=== PATIENT | male | born 1930 | race Caucasian/White ===

== ENCOUNTER 2017-03-09 21:18 | Inpatient (IN) | payer MEDICARE, BC ==
[2017-03-09] MEDS ORDERED: NS 0.9% 1000 ML* 1,000 ML IV SCH (22:00)
[2017-03-09 22:18] LABS: Hematocrit 29 % (42-52); Hemoglobin 9.6 g/dl (14.0-18.0); Mean Corpuscular HGB Conc 34 g/dl (31-36); Mean Corpuscular Hemoglobin 32 pg (27-31); Mean Corpuscular Volume 94 fL (80-94); Mean Platelet Volume 7 um3 (7.4-10.4); Red Blood Count 3.02 10^6/ul (4.0-5.4); Red Cell Distribution Width 16 % (10.5-15); White Blood Count 7.3 10^3/ul (3.5-10.8)
--- NOTE | 2017-03-09 22:27 | RAD ---
INDICATION: Weakness. COMPARISON: Comparison is made with a prior chest x-ray study from July 24, 2014. TECHNIQUE: A portable view of the chest was obtained. FINDINGS: There is a dual-chamber transvenous pacemaker present. The heart is within normal limits in size. The lungs are underinflated and clear. No pleural effusion is seen. IMPRESSION: NO EVIDENCE FOR ACUTE DISEASE.
[2017-03-09 22:34] LABS: Albumin 2.1 g/dL (3.2-5.2); BUN/Creatinine Ratio 18.2 (8-20); C Reactive Protein 150.51 mg/L (< 5.00); Calcium 8.2 mg/dL (8.6-10.3); EGFR African American 40.4 (>60); EGFR Non-African American 31.4 (>60); Potassium 3.6 mmol/L (3.5-5.0); Total Bilirubin 0.5 mg/dL (0.2-1.0); Total Protein 6.1 g/dL (6.4-8.9)
[2017-03-09 22:38] LABS: Troponin I 0.03 ng/mL (<0.04)
[2017-03-09 23:16] LABS: TSH (Thyroid Stimulating Horm) 3.51 mcIU/mL (0.34-5.60)
[2017-03-09 23:48] LABS: Urine Bacteria 1+ (Absent); Urine Bilirubin Negative (Negative); Urine Glucose Negative (Negative); Urine Nitrite Negative (Negative)
[2017-03-10] MEDS ORDERED: Heparin VIAL(*) 5000 UNITS/ML VIAL (FIVE THOUSAND) IV SCH (02:00)
[2017-03-10] MEDS: Heparin DRIP 25,000 UNITS(*) 25,000 UNITS/500 ML BAG IV SCH ×2 (02:06→21:59)
--- NOTE | 2017-03-10 05:25 | ED ---
Marti Titus Salem, scribed for Yanick Turner MD on 03/09/17 at 2200 . Complex/Multi-Sys Presentation - HPI Summary HPI Summary: Patient is a 86 y/o M who presents to the ED with multiple complaints. Pt was sent to the ED for admission by Dr. Mitchell after blood work today. Pt travelled from [place] by plane 4 days ago after hip surgery on the right side. Family reports edema and purulence on RLE, low BP (80/[address] Hoffmann office), high D-Dimer, no BM in a few days, strong smelling urine, incontinence , and general weakness. They denie fever, SOB, or CP. Pt has been using a wheel chair at home and denies O2 use at home. O2 Sat at 100% upon examination. - History Of Current Complaint Chief Complaint: EDGeneral Hx Obtained From: Family/Steam [employer], Other: - PCP: Dr. Mitchell. Onset/Duration: Gradual Onset, Lasting Days, Still Present Timing: Constant Severity Currently: Moderate Severity Initially: Moderate Location: Negative Aggravating Factor(s): Nothing. Alleviating Factor(s): Nothing. Associated Signs And Symptoms: Positive: Weakness. Negative: SOB, Chest Pain, Fever - Allergies/Home Medications Allergies/Adverse Reactions: Allergies Allergy/AdvReac Type Severity Reaction Status Date / Time No Known Allergies Allergy Verified 03/08/13 14:25 Home Medications: Home Medications Amiodarone HCl 200 mg PO BID 03/09/17 [History Confirmed 03/09/17] Aspirin 81 MG TAB 81 mg PO DAILY 03/09/17 [History Confirmed 03/09/17] Atenolol 25 mg PO DAILY 03/09/17 [History Confirmed 03/09/17] Calcium 600 mg PO BID 03/09/17 [History Confirmed 03/09/17] Carafate 1 gm PO DAILY 03/09/17 [History Confirmed 03/09/17] Carbidopa/Levodop 25/100 MG(*) 3 tab PO TID 03/09/17 [History Confirmed 03/09/17 ] Colace 100 mg PO BID 03/09/17 [History Confirmed 03/09/17] Crestor 10 mg PO DAILY 03/09/17 [History Confirmed 03/09/17] Ferrous Sulfate 325 mg PO TID 03/09/17 [History Confirmed 03/09/17] Lasix 20 mg PO DAILY 03/09/17 [History Confirmed 03/09/17] Mekinist 2 mg PO DAILY 03/09/17 [History Confirmed 03/09/17] Multi Vitamin 1 tab PO DAILY 03/09/17 [History Confirmed 03/09/17] Pantoprazole Sodium 40 mg PO BID 03/09/17 [History Confirmed 03/09/17] Potassium Chlor TAB 20 MEQ* 20 meq PO DAILY 03/09/17 [History Confirmed 03/09/17 ] Tafinlar 150 mg PO DAILY 03/09/17 [History Confirmed 03/09/17] PMH/Surg Hx/FS Hx/Imm Hx Endocrine/Hematology History: Denies: Hx Diabetes Cardiovascular History: Reports: Hx Hypercholesterolemia, Hx Hypertension, Hx Pacemaker/ICD, Other Cardiovascular Problems/Disorders - hx pacemaker left chest wall, r/t atrial fibrillation Denies: Hx Congestive Heart Failure GI History: Denies: Other GI Disorders - pt. denies History: Reports: Hx Kidney Stones Denies: Hx Renal Disease Musculoskeletal History: Reports: Hx Back Problems Sensory History: Reports: Hx Contacts or Glasses Opthamlomology History: Reports: Hx Contacts or Glasses Neurological History: Reports: Other Neuro Impairments/Disorders - parkinsons - Cancer History Cancer Type, Location and Year: melanoma Hx Chemotherapy: No Hx Radiation Therapy: No - Surgical History Surgery Procedure, Year, and Place: melanoma removed from back, pacemaker insertion 10 years ago updated last winter (in [place]), repair of torn tendon L elbow 1980s [facility] [place], [place]. Infectious Disease History: Denies: Traveled Outside the [place] in Last 30 Days - Family History Known Family History: Positive: Other - No fhx of PE. Negative: Cardiac Disease - Social History Alcohol Use: None Substance Use Type: Reports: None Hx Tobacco Use: No Smoking Status (MU): Never Smoked Tobacco Review of Systems Positive: Other - High D-dimer. . Negative: Fever Positive: Other - Low BP . Negative: Chest Pain Negative: Shortness Of Breath Positive: incontinence, other - No BM. Strong smelling urine. Positive: Edema - RLE. , Other - Purulence on RLE. Positive: Weakness All Other Systems Reviewed And Are Negative: Yes Physical Exam Triage Information Reviewed: Yes Vital Signs On Initial Exam: Initial Vitals Temp Pulse Resp BP Pulse Ox 97.3 F 81 20 112/58 100 03/09/17 21:22 03/09/17 21:22 03/09/17 21:22 03/09/17 21:22 03/09/17 21:22 Vital Signs Reviewed: Yes Appearance: Positive: Well-Appearing, No Pain Distress Skin: Positive: Warm, Skin Color Reflects Adequate Perfusion, Dry Head/Face: Positive: Normal Head/Face Inspection Eyes: Positive: EOMI, PATRICK ENT: Positive: Normal ENT inspection Neck: Positive: Supple, Nontender Respiratory/Lung Sounds: Positive: Clear to Auscultation, Breath Sounds Present Cardiovascular: Positive: RRR Abdomen Description: Positive: Nontender, Soft Bowel Sounds: Positive: Present Musculoskeletal: Positive: Strength/ROM Intact, Other - Edematous RLE. Neurological: Positive: Normal, Sensory/Motor Intact, Alert, Oriented to Person Place, Time Psychiatric: Positive: Affect/Mood Appropriate Diagnostics - Vital Signs Vital Signs Temp Pulse Resp BP Pulse Ox 03/09/17 21:22 97.3 F 81 20 112/58 100 - Laboratory Lab Results: Lab Results 03/09/17 03/09/17 03/09/17 Range/Units 22:11 22:11 22:11 WBC 7.3 (3.5-10.8) 10^3/ul RBC 3.02 L (4.0-5.4) 10^6/ul Hgb 9.6 L (14.0-18.0) g/dl Hct 29 L (42-52) % MCV 94 (80-94) fL MCH 32 H (27-31) pg MCHC 34 (31-36) g/dl RDW 16 H (10.5-15) % Plt Count 227 (150-450) 10^3/ul MPV 7 L (7.4-10.4) um3 Neut % (Auto) 68.5 (38-83) % Lymph % (Auto) 19.8 L (25-47) % Jenkins % (Auto) 8.8 (1-9) % Eos % (Auto) 2.0 (0-6) % Baso % (Auto) 0.9 (0-2) % Absolute Neuts (auto) 5.0 (1.5-7.7) 10^3/ul Absolute Lymphs (auto) 1.5 (1.0-4.8) 10^3/ul Absolute Monos (auto) 0.6 (0-0.8) 10^3/ul Absolute Eos (auto) 0.1 (0-0.6) 10^3/ul Absolute Basos (auto) 0.1 (0-0.2) 10^3/ul Absolute Nucleated RBC 0 10^3/ul Nucleated RBC % 0.1 INR (Anticoag Therapy) 1.06 (0.89-1.11) APTT 31.7 (26.0-36.3) seconds D-Dimer, Quantitative > 1050 H (Less Than 230) ng/mL Sodium 127 L (133-145) mmol/L Potassium 3.6 (3.5-5.0) mmol/L Chloride 91 L (101-111) mmol/L Carbon Dioxide 30 (22-32) mmol/L Anion Gap 6 (2-11) mmol/L BUN 37 H (6-24) mg/dL Creatinine 2.03 H (0.67-1.17) mg/dL Est GFR ( Amer) 40.4 (>60) Est GFR (Non-Af Amer) 31.4 (>60) BUN/Creatinine Ratio 18.2 (8-20) Glucose 151 H (70-100) mg/dL Lactic Acid (0.5-2.0) mmol/L Calcium 8.2 L (8.6-10.3) mg/dL Total Bilirubin 0.50 (0.2-1.0) mg/dL AST 37 (13-39) U/L ALT 6 L (7-52) U/L Alkaline Phosphatase 234 H (34-104) U/L Total Creatine Kinase 84 (10-223) U/L CK-MB (CK-2) 2.8 (0.6-6.3) ng/mL Troponin I 0.03 (<0.04) ng/mL C-Reactive Protein 150.51 H (< 5.00) mg/L B-Natriuretic Peptide ( - 100) pg/mL Total Protein 6.1 L (6.4-8.9) g/dL Albumin 2.1 L (3.2-5.2) g/dL Globulin 4.0 (2-4) g/dL Albumin/Globulin Ratio 0.5 L (1-3) Lipase 141 H (11.0-82.0) U/L TSH 3.51 (0.34-5.60) mcIU/mL Urine Color Urine Appearance Urine pH (5-9) Ur Specific [place] (1.010-1.030) Urine Protein (Negative) Urine Ketones (Negative) Urine Blood (Negative) Urine Nitrate (Negative) Urine Bilirubin (Negative) Urine Urobilinogen (Negative) Ur Leukocyte Esterase (Negative) Urine WBC (Auto) (Absent) Urine RBC (Auto) (Absent) Ur Squamous Epith Cells (Absent) Urine Bacteria (Absent) Urine Glucose (Negative) 03/09/17 03/09/17 03/09/17 Range/Units 22:11 22:11 23:22 WBC (3.5-10.8) 10^3/ul RBC (4.0-5.4) 10^6/ul Hgb (14.0-18.0) g/dl Hct (42-52) % MCV (80-94) fL MCH (27-31) pg MCHC (31-36) g/dl RDW (10.5-15) % Plt Count (150-450) 10^3/ul MPV (7.4-10.4) um3 Neut % (Auto) (38-83) % Lymph % (Auto) (25-47) % Jenkins % (Auto) (1-9) % Eos % (Auto) (0-6) % Baso % (Auto) (0-2) % Absolute Neuts (auto) (1.5-7.7) 10^3/ul Absolute Lymphs (auto) (1.0-4.8) 10^3/ul Absolute Monos (auto) (0-0.8) 10^3/ul Absolute Eos (auto) (0-0.6) 10^3/ul Absolute Basos (auto) (0-0.2) 10^3/ul Absolute Nucleated RBC 10^3/ul Nucleated RBC % INR (Anticoag Therapy) (0.89-1.11) APTT (26.0-36.3) seconds D-Dimer, Quantitative (Less Than 230) ng/mL Sodium (133-145) mmol/L Potassium (3.5-5.0) mmol/L Chloride (101-111) mmol/L Carbon Dioxide (22-32) mmol/L Anion Gap (2-11) mmol/L BUN (6-24) mg/dL Creatinine (0.67-1.17) mg/dL Est GFR ( Amer) (>60) Est GFR (Non-Af Amer) (>60) BUN/Creatinine Ratio (8-20) Glucose (70-100) mg/dL Lactic Acid 2.1 H* (0.5-2.0) mmol/L Calcium (8.6-10.3) mg/dL Total Bilirubin (0.2-1.0) mg/dL AST (13-39) U/L ALT (7-52) U/L Alkaline Phosphatase (34-104) U/L Total Creatine Kinase (10-223) U/L CK-MB (CK-2) (0.6-6.3) ng/mL Troponin I (<0.04) ng/mL C-Reactive Protein (< 5.00) mg/L B-Natriuretic Peptide 167 H ( - 100) pg/mL Total Protein (6.4-8.9) g/dL Albumin (3.2-5.2) g/dL Globulin (2-4) g/dL Albumin/Globulin Ratio (1-3) Lipase (11.0-82.0) U/L TSH (0.34-5.60) mcIU/mL Urine Color Yellow Urine Appearance Cloudy Urine pH 5.0 (5-9) Ur Specific [place] 1.011 (1.010-1.030) Urine Protein Negative (Negative) Urine Ketones Trace H (Negative) Urine Blood 1+ H (Negative) Urine Nitrate Negative (Negative) Urine Bilirubin Negative (Negative) Urine Urobilinogen Negative (Negative) Ur Leukocyte Esterase Negative (Negative) Urine WBC (Auto) Trace(0-5/hpf) (Absent) Urine RBC (Auto) Trace(0-2/hpf) (Absent) Ur Squamous Epith Cells Present H (Absent) Urine Bacteria 1+ H (Absent) Urine Glucose Negative (Negative) Result Diagrams: 03/09/17 22:11 03/09/17 22:11 Diagnostic Studies Comment: Lactic acid: 2.1. D-Dimer: >1050. Trop 1: 0.03 Lab Statement: Any lab studies that have been ordered have been reviewed, and results considered in the medical decision making process. - Radiology CXR Radiology Interpretation Completed By: Radiologist - IMPRESSION: NO EVIDENCE FOR ACUTE DISEASE. - Ultrasound No standard instances Ultrasound Interpretation Completed By: Radiologist - VL LOWER EXTREMITIES VEINS RIGHT IMPRESSION: Bilateral DVT with possible proximal extension to the pelvis. - EKG 0153 EKG Interpretation: A-V dual paced rhythm @ 70 bpm. Complex Multi-Symp Course/Dx Course Of Treatment: NO CRITICAL CARE TIME. ADMIT HOSPITALIST STABLE. - Diagnoses Provider Diagnoses: DVT (deep venous thrombosis), Hypotension, Weakness - Physician Notifications Discussed Care Of Patient With: Maurizio Madrigal Time Discussed With Above Provider: 00:36 Instructed by Provider To: Admit As Inpatient Admit/Transition Orders Completed By ED Provider: Yes Discharge - Discharge Plan Condition: Stable Disposition: ADMITTED TO [facility] documentation as recorded by the Marti concepcion Salem accurately reflects the service I personally performed and the decisions made by , Yanick Turner MD.
--- NOTE | 2017-03-10 06:09 | HP ---
CC: Caitlyn Mitchell MD * HISTORY AND PHYSICAL: DATE OF ADMISSION: 03/10/17 PRIMARY CARE PHYSICIAN: Caitlyn Mitchell MD CHIEF COMPLAINT: Weakness. HISTORY OF PRESENT ILLNESS: The patient is an 86-year-old gentleman, who spends half his time in [place] and half his time here in [place], [place] who recently got back from [place] about a week ago and states for the last 2 weeks , he has been feeling increasing weakness. He says he has not been eating well and has had no desire to eat. He has not been drinking much either. He notes his blood pressure has been low. They called Dr. Mitchell this week and saw her today 2:30. Apparently, the patient states that he had abnormal blood work and was sent to the hospital by Dr. Mitchell. He has no complaints such as increased pain or chest pain or shortness of breath. He has no leg cramping, no fevers, no chills, no abdominal pain, no nausea and vomiting. He states he just has no desire to eat and it has nothing to do with the way the food tastes. He denies any new medications or adjustments in his medications. He denies being depressed. In the ED, the patient was evaluated and the only finding of significance seems to be that he has bilateral lower extremity extensive DVTs. CTA was not performed because of his elevated creatinine. PAST MEDICAL HISTORY: Significant for paroxysmal atrial fibrillation, was on Coumadin at one point as well as Pradaxa; status post pacemaker placement for sick sinus syndrome in 2002, generator change in 2009; hypertension; gout; IgG and IgA lambda monoclonal gammopathy; BPH; GERD; nephrolithiasis with calcium oxalate stones; lumbosacral disk disease; diverticulosis; anemia; Robyn's thyroiditis; colonic polyps; hyperlipidemia; renal cysts; bladder stones; hemorrhoids; Parkinson's disease; metastatic melanoma. PAST SURGICAL HISTORY: Significant for cataracts, T and A in childhood, TURP for bladder calculus removal in 2005, left arm surgery, sentinel node biopsy. CURRENT MEDICATIONS: Are as follows: 1. Tafinlar 150 mg daily. 2. Potassium chloride 20 mEq daily. 3. Protonix 40 mg twice daily. 4. Multivitamin 1 tablet daily. 5. Mekinist 2 mg daily. 6. Lasix 20 mg daily. 7. Ferrous sulfate 325 mg 3 times a day. 8. Crestor 10 mg daily. 9. Colace 100 mg twice daily. 10. Carbidopa/levodopa 3 tabs 3 times a day. 11. Carafate 1 g daily. 12. Calcium 60 mg twice daily. 13. Tylenol 25 mg daily. 14. Aspirin 81 mg daily. 15. Amiodarone 200 mg twice daily. ALLERGIES: He has allergy/adverse reaction to BEE STINGS. FAMILY HISTORY: Significant for diabetes and thyroid disease and heart disease. SOCIAL HISTORY: No tobacco, alcohol, or recreational drug use. His son, Jaime Gastelum, is his healthcare proxy. He is a . REVIEW OF SYSTEMS: A 14-point review of systems was completed with the patient. All pertinent positives and negatives are in the history of present illness, otherwise it is negative. PHYSICAL EXAMINATION GENERAL: A pleasant gentleman, lying in bed, in no acute distress. VITAL SIGNS: Blood pressure 113/76, respiratory rate 15 breaths per minute, heart rate 75 beats per minute, temperature 97.3 degrees. HEENT: Normocephalic, atraumatic. Pupils are equal, round, and reactive to light. Dry mucous membranes. NECK: Supple. No JVD, bruits, palpable thyroid, or lymphadenopathy. CHEST: Clear to auscultation and percussion bilaterally. CARDIOVASCULAR: S1, S2 appreciated. Regular rate and rhythm. ABDOMINAL: Positive bowel sounds in all 4 quadrants. Soft, nontender, nondistended. EXTREMITIES: No cyanosis or clubbing. He has got bilateral edema, +2 peripheral pulses bilaterally. NEURO: Alert and oriented x3, but masked facies. He has got bilateral intention tremor. SKIN: No distinct rashes or abnormalities. DIAGNOSTIC STUDIES/LAB DATA: Sodium 127, potassium 3.6, chloride 91, CO2 30, BUN 37, creatinine 2.03, glucose 151. Lactic acid is 2.1. CRP 150.51. Troponin 0.03. TSH is 3.51. White blood cell count 7.3, hemoglobin 9.6, hematocrit 29, platelets are 227. D-dimer is greater than 1050. Urinalysis had just some bacteria and squamous epithelial cells. Chest x-ray was interpreted by Radiology as no evidence for acute disease. Venous duplex shows there is nearly occlusive clot throughout the entire visualized right lower extremity with possible proximal extension into the pelvis. There is a partially occlusive clot in the left common femoral, proximal femoral, superficial femoral, and profundus veins, proximal extension to pelvis is not excluded. An EKG shows AV dual paced rhythm. ASSESSMENT AND PLAN: 1. Deep venous thrombosis. I am concerned the patient may have a pulmonary embolism as well, although he has no symptoms. Certainly a risk for. His creatinine is somewhat high. I will order a V/Q scan. I will heparinize him as if he has a pulmonary embolism. 2. Weakness. It is unclear etiology. He is not eating well. There could be a depression component. I do not have any acute reasons for this to happen and I doubt it is from his deep venous thrombosis. I will hydrate him for now with normal saline at 100 cc an hour. 3. Parkinson's disease. He certainly has physical findings consistent with this. He is currently on the carbidopa/levodopa. Whether adjustment is necessary needs to be addressed. 4. Metastatic melanoma. Continue Mekinist and Tafinlar. 5. Atrial fibrillation. He is on amiodarone 200 mg twice daily. He has got a paced rhythm. It is unclear if this needs to be continued or not and should be addressed. 6. Gastroesophageal reflux disease. Continue omeprazole. No signs consistent with that. 7. FEN. Regular diet. 8. DVT prophylaxis. He is on a heparin drip. 9. The patient is a do not resuscitate. TIME SPENT: Over 75 minutes were spent on this H and P, more than 40 minutes were spent in direct [id number] contact with the patient in evaluation, physical exam, counseling and coordination of care. [id number]/[facility] #: [id number] MTDD
[2017-03-10] MEDS: NS 0.9% 1000 ML* 1,000 ML IV SCH ×2 (07:08→18:15)
[2017-03-10 07:11] LABS: Hematocrit 26 % (42-52); Hemoglobin 8.6 g/dl (14.0-18.0); Mean Corpuscular HGB Conc 33 g/dl (31-36); Mean Corpuscular Hemoglobin 31 pg (27-31); Mean Corpuscular Volume 95 fL (80-94); Mean Platelet Volume 7 um3 (7.4-10.4); Red Blood Count 2.75 10^6/ul (4.0-5.4); Red Cell Distribution Width 16 % (10.5-15); White Blood Count 7.9 10^3/ul (3.5-10.8)
--- NOTE | 2017-03-10 07:37 | RAD ---
INDICATION: Right lower extremity swelling, positive d-dimer. COMPARISON: There are no prior studies available for comparison. TECHNIQUE: Multiple real-time, color flow and Doppler tracings of both lower extremities were obtained. FINDINGS: There is extensive deep venous thrombosis present throughout the right lower extremity involving the common femoral, profunda femoral, femoral popliteal and posterior tibial veins. Most of the thrombus is occlusive. The peroneal veins were nonvisualized. There is also occlusive thrombus within the left common femoral and profunda femoral veins and there may be proximal extension on both sides into the pelvis. IMPRESSION: BILATERAL LOWER EXTREMITY DEEP VENOUS THROMBOSIS INVOLVING NEARLY THE ENTIRE RIGHT LOWER EXTREMITY DEEP VENOUS SYSTEM AND THE LEFT COMMON FEMORAL AND PROFUNDA FEMORAL VEINS WITH POSSIBLE PROXIMAL EXTENSION ON BOTH SIDES INTO THE PELVIS.
[2017-03-10 07:42] LABS: BUN/Creatinine Ratio 19.6 (8-20); Calcium 7.9 mg/dL (8.6-10.3); EGFR African American 46.8 (>60); EGFR Non-African American 36.4 (>60); Potassium 3.4 mmol/L (3.5-5.0)
[2017-03-10] MEDS ORDERED: Potassium Chlor TAB* 20 MEQ TAB.ER PO SCH (08:30)
--- NOTE | 2017-03-10 10:32 | RAD ---
Indication: DVT. Assess for pulmonary embolism. Remote history of melanoma. Comparison: March 09, 2017 chest radiograph. Technique: Following administration of 7.600 mCi xenon-133 by inhalation anterior and posterior ventilation images were obtained. Following the administration of 6.180 mCi of Tc-99m macroaggregated albumin, perfusion images were obtained in multiple projections. Report: The ventilation pattern is uniform with evidence for mild bilateral air trapping. Multiple LEFT greater than RIGHT subsegmental perfusion defects evident. No corresponding radiographic abnormality on the March 09, 2017 chest radiograph. IMPRESSION: 1. Significant abnormality with multiple subsegmental perfusion defects without corresponding ventilation defects or chest radiograph abnormality consistent with intermediate to high probability for pulmonary embolism. 2. Air trapping favoring obstructive lung disease.
[2017-03-10] MEDS: Carbidopa/Levodop 25/100 MG TAB(*) PO SCH ×3 (11:07→21:48)
[2017-03-10] MEDS: Amiodarone TAB* 200 MG PO SCH ×2 (11:07→21:48)
[2017-03-10] MEDS: Omeprazole CAP* 20 MG PO SCH ×2 (11:08→21:48)
[2017-03-10] MEDS: Atenolol TAB* 25 MG PO SCH (11:08)
[2017-03-10] MEDS: Calcium Carbonate TAB* 1250 MG (CALCIUM 500 MG) PO SCH ×2 (11:08→21:48)
[2017-03-10] MEDS: Atorvastatin* 20 MG TAB PO SCH (11:09)
[2017-03-10] MEDS: Aspirin EC Low Dose* 81 MG TAB.EC PO SCH (11:09)
[2017-03-10] MEDS: Vitamin THERAPEUTIC TAB PO SCH (11:09)
[2017-03-10] MEDS: Docusate CAP* 100 MG PO SCH ×2 (11:09→21:49)
[2017-03-10] MEDS: Ferrous Sulfate TAB* 325 MG PO SCH ×3 (11:09→21:47)
[2017-03-10] MEDS: Sucralfate TAB* 1 GM PO SCH (11:09)
[2017-03-10] MEDS: TRAMETINIB 2 MG PO SCH (11:44)
--- NOTE | 2017-03-10 13:37 | ECHO ---
Patient: CARMELA FAJARDO [facility] Rec#: [id number] : 1930 Date: 03/10/2017 Age: 86y Height: 177.8 cm / 70.0 in Weight: 83.46 kg / 183.9 lbs Sex: M BSA: 2.01 Room#: [facility] Admit Date#: 03/10/2017 Type: Inpatient Referring: Caitlyn Mitchell MD Reading: Julius Gao MD Detail Sergeant: Shira Altamirano [facility] Transthoracic Echocardiogram Indication: Pulmonary Embolism BP: 130/66 HR: 70 Rhythm: Paced Findings History: PAF, s/p Watchman insert,SSS s/p pacer insert,HTN, metastatic melanoma. Technical Comments: The study quality is fair. Suboptimal imaging due to lung tissue interference. Left Ventricle: The left ventricular chamber size is normal. Global left ventricular wall motion and contractility are within normal limits. The estimated ejection fraction is 55-60%. There is abnormal ventricular septal wall motion consistent with right ventricular pacemaker. The assessment of diastolic function is non-diagnostic. Left Atrium: The left atrium is mild to moderately dilated. Right Ventricle: The right ventricle is not well visualized. The right ventricular cavity size is normal. The right ventricular global systolic function is normal. The septum has abnormal paradoxical motion consistent with RV pacemaker. A pacemaker wire is visualized in the right ventricle. Right Atrium: The right atrium is mild to moderately dilated. A pacemaker wire is visualized in the right atrium. Aortic Valve: The aortic valve is trileaflet. Mild aortic cusp sclerosis is present. There is mild aortic regurgitation. There is no evidence of aortic stenosis. Mitral Valve: The mitral valve leaflets are moderately thickened. There is mild mitral regurgitation. This may be underestimated due to suboptimal imaging. The mitral regurgitant jet is centrally directed. There is no evidence of mitral stenosis. Tricuspid Valve: The tricuspid valve leaflets are mildly thickened. There is trace to mild tricuspid regurgitation. There is evidence of borderline pulmonary hypertension. There is no tricuspid stenosis. Pulmonic Valve: The pulmonic valve appears normal. There is a trace pulmonic regurgitation. There is no pulmonic stenosis. Pericardium: The pericardium appears normal. Aorta: There is mild dilatation of the ascending aorta. There is no dilatation of the aortic arch. There is mild dilatation of the aortic root. Pulmonary Artery: The main pulmonary artery appears normal. Venous: The inferior vena cava appears normal in size. There is a greater than 50% respiratory change in the inferior vena cava dimension. Conclusions The study quality is fair. Suboptimal imaging due to lung tissue interference. Global left ventricular wall motion and contractility are within normal limits. There is abnormal ventricular septal wall motion consistent with right ventricular pacemaker. The estimated ejection fraction is 55-60%. The left atrium is mild to moderately dilated. The right atrium is mild to moderately dilated. There is mild mitral regurgitation. This may be underestimated due to suboptimal imaging. There is trace to mild tricuspid regurgitation. There is a trace pulmonic regurgitation. There is mild aortic regurgitation. Compared to FER report of 07/23/2014 the mitral regurgitation appears less, as does the tricuspid regurgitation. Measurements Name Value Normal Range RVIDd (AP) 2D 3.6 cm (0.9 - 2.6) RVDdMajor (2D) 4 cm (2.2 - 4.4) RAd ISD 4CH 6 cm (3.4 - 4.9) RA (A4C)W 4.7 cm (2.9 - 4.6) IVSd (2D) 0.9 cm (0.6 - 1) LVPWd (2D) 1 cm (0.6 - 1) LVIDd (2D) 4.6 cm (3.6 - 5.4) LVIDs (2D) 3.1 cm - LV FS (2D) 33 % (25 - 45) Aortic Annulus 2.2 cm (1.4 - 2.6) Ao root diameter (2D) 3.7 cm (2.1 - 3.5) Ascending Ao 3.8 cm (2.1 - 3.4) Aortic arch 3.1 cm (1.8 - 3.4) Descending Ao 0.4 cm - LA dimension (AP) 2D 4.3 cm (2.3 - 3.8) LAd ISD 4CH 6 cm (2.9 - 5.3) LA ISD 4CH W 4.5 cm (2.5 - 4.5) Name Value Normal Range LA ESV SP 4CH (A/L) 89 ml - LA ESV SP 2CH (A/L) 76 ml - LA ESV BP (A/L) 88 ml - LA ESV BP (A/L) index 43.49 ml/m2 - LA ESV SP 4CH (MOD) 83 ml - LA ESV SP 2CH (MOD) 73 ml - Name Value Normal Range MV E-wave Vmax 0.7 m/sec - MV deceleration time 335 msec - MV A-wave Vmax 0.8 m/sec - MV E:A ratio 0.85 ratio - LV septal e' Vmax 0.07 m/sec - LV lateral e' Vmax 0.11 m/sec - LV E:e' septal ratio 10 ratio - LV E:e' lateral ratio 6.36 ratio - Name Value Normal Range AV Vmax 1.6 m/sec - AV VTI 28.5 cm - AV peak gradient 10.01 mmHg - AV mean gradient 4.65 mmHg - LVOT Vmax 0.9 m/sec - LVOT VTI 16.14 cm - LVOT peak gradient 3.1 mmHg - LVOT mean gradient 1.36 mmHg - AR PHT 786 msec - AR peak gradient 27.17 mmHg - Name Value Normal Range MR Vmax 3.65 m/sec - MR VTI 79 cm - Name Value Normal Range TR Vmax 2.8 m/sec - TR peak gradient 31 mmHg - RAP 3 mmHg - RVSP 34 mmHg - IVC diameter 1.2 cm - Name Value Normal Range PV Vmax 0.9 m/sec - PV peak gradient 3.1 mmHg -
[2017-03-10] MEDS ORDERED: Magnesium Sulfate 2 GM IV IVPB ONE (15:00)
[2017-03-10] MEDS ORDERED: cefTRIAXone* 1 GM in NS 0.9% 50 ML BAG IVPB SCH (15:00)
[2017-03-10] MEDS: Potassium Chlor TAB* 20 MEQ TAB.ER PO SCH ×2 (15:03→21:49)
[2017-03-10 15:38] LABS: C Reactive Protein 130.06 mg/L (< 5.00)
[2017-03-10 16:07] LABS: Ferritin 438.6 ng/mL (24-336)
--- NOTE | 2017-03-10 17:09 | PN ---
Progress Note - Progress Note SOAP: Subjective: []Resting in bed. Swelling in legs and several fall. He had hip surgery on right 01/05/17. Took plane to [place] last week. Presented to Dr. Mitchell with increased weakness and TYSHAWN.. Swelling in legs continues. He has abrasions from recent falls. Amiodarone HCl (Cordarone Tab*) 200 mg PO BID [facility] Last Admin: 03/10/17 11:07 Dose: 200 mg Aspirin (Aspirin Ec Low Dose*) 81 mg PO DAILY [facility] Last Admin: 03/10/17 11:09 Dose: 81 mg Atenolol (Tenormin Tab*) 25 mg PO DAILY [facility] Last Admin: 03/10/17 11:08 Dose: 25 mg Atorvastatin Calcium (Lipitor*) 20 mg PO DAILY [facility] Last Admin: 03/10/17 11:09 Dose: 20 mg Calcium Carbonate (Calcium Carbonate Tab*) 1,250 mg PO BID [facility] Last Admin: 03/10/17 11:08 Dose: 1,250 mg Carbidopa/Levodopa (Sinemet 25/100 Tab(*)) 3 tab PO TID [facility] Last Admin: 03/10/17 14:04 Dose: 3 tab Docusate Sodium (Colace Cap*) 100 mg PO BID [facility] Last Admin: 03/10/17 11:09 Dose: 100 mg Ferrous Sulfate (Ferrous Sulfate Tab*) 325 mg PO TID [facility] Last Admin: 03/10/17 14:03 Dose: 325 mg Heparin Sodium (Porcine) (Heparin Vial(*)) 0 units IV .PER PROTOCOL [facility] PRN Reason: Protocol Heparin Sodium/Dextrose (Heparin Drip 25,000 Units(*)) 25,000 units in 500 mls @ 0 mls/hr IV .NO INITIAL BOLUS [facility]; As Directed PRN Reason: Protocol Last Admin: 03/10/17 02:06 Dose: 31 mls/hr Sodium Chloride (Ns 0.9% 1000 Ml*) 1,000 mls @ 100 mls/hr IV PER RATE [facility] Last Admin: 03/10/17 07:08 Dose: 100 mls/hr Ceftriaxone Sodium 1,000 mg/ (Sodium Chloride) 50 mls @ 200 mls/hr IVPB Q24H [facility] Last Admin: 03/10/17 15:04 Dose: 200 mls/hr Multivitamins (Theragran Tab*) 1 tab PO DAILY [facility] Last Admin: 03/10/17 11:09 Dose: 1 tab Trametinib [Mekinist (] 2mg Tablet) 2 mg PO DAILY [facility] Last Admin: 03/10/17 11:44 Dose: Not Given (Tafinlar 150 Mg) 150 mg PO DAILY [facility] Last Admin: 03/10/17 11:44 Dose: Not Given Omeprazole (Prilosec Cap*) 20 mg PO BID [facility] Last Admin: 03/10/17 11:08 Dose: 20 mg Potassium Chloride (Klor Con Er Tab*) 20 meq PO TID [facility] Last Admin: 03/10/17 15:03 Dose: 20 meq Sucralfate (Carafate*) 1 gm PO DAILY [facility] Last Admin: 03/10/17 11:09 Dose: 1 gm Objective: [] Vital Signs Temp Pulse Resp BP Pulse Ox 99.3 F 70 20 112/57 96 03/10/17 16:02 03/10/17 16:02 03/10/17 16:02 03/10/17 16:02 03/10/17 16:02 HEENT - Pale, mucosa dry. No skin rash CTA, decreased sounds Rate 60s sounds irregular +BS NT, ND TYSHAWN, R>L weak, strength 1/5 LE skin exam differed, but abrasions on both legs and right arm. Assessment: []86 year old with multiple medical problems including metastatic melanoma B- bianca + and stable for 3 years on dabrafenib (BRAF inhibitor) and tramefinib (MEK inhibitor). Had does reduced in December for fatigue and feeling dizzy. Recent PET scan in [place] with stable disease. He has done remarkably well on therapy but look significantly more frail today then when I saw him in 06/2014. Plan: []1. Combination of dabrafenib and tramefinib has significant risk of DVT and PE (7% in studies). Hold for 6 week and until stable on Coumadin. 2. Will need keno terminal operator anticoagulation while on cancer therapy. Will need to weigh risks vs risk of continued falls. 3. Coumadin is optimal agent keno terminal operator, Lovenox modified for renal function is the other option. I do not recommend direct oral thrombin inhibitors.
[2017-03-11 01:16] LABS: Hematocrit 23 % (42-52); Hemoglobin 7.4 g/dl (14.0-18.0); Mean Corpuscular HGB Conc 33 g/dl (31-36); Mean Corpuscular Hemoglobin 31 pg (27-31); Mean Corpuscular Volume 95 fL (80-94); Mean Platelet Volume 7 um3 (7.4-10.4); Red Blood Count 2.36 10^6/ul (4.0-5.4); Red Cell Distribution Width 16 % (10.5-15); White Blood Count 5.6 10^3/ul (3.5-10.8)
[2017-03-11] MEDS: Cefepime(*) 1 GM in NS 0.9% 50 ML* 50 ML IVPB SCH ×2 (01:18→14:17)
[2017-03-11] MEDS: NS 0.9% 1000 ML* 1,000 ML IV SCH ×2 (05:33→21:30)
[2017-03-11 08:47] LABS: Hematocrit 22 % (42-52); Hemoglobin 7.3 g/dl (14.0-18.0); Mean Corpuscular HGB Conc 33 g/dl (31-36); Mean Corpuscular Hemoglobin 32 pg (27-31); Mean Corpuscular Volume 96 fL (80-94); Mean Platelet Volume 7 um3 (7.4-10.4); Red Blood Count 2.33 10^6/ul (4.0-5.4); Red Cell Distribution Width 16 % (10.5-15); White Blood Count 4.5 10^3/ul (3.5-10.8)
[2017-03-11] MEDS: TRAMETINIB 2 MG PO SCH (08:53)
[2017-03-11] MEDS: Atorvastatin* 20 MG TAB PO SCH (08:58)
[2017-03-11] MEDS: Potassium Chlor TAB* 20 MEQ TAB.ER PO SCH ×3 (08:58→21:17)
[2017-03-11] MEDS: Vitamin THERAPEUTIC TAB PO SCH (08:58)
[2017-03-11] MEDS: Docusate CAP* 100 MG PO SCH ×2 (08:58→21:17)
[2017-03-11] MEDS: Carbidopa/Levodop 25/100 MG TAB(*) PO SCH ×3 (08:58→21:17)
[2017-03-11] MEDS: Aspirin EC Low Dose* 81 MG TAB.EC PO SCH (08:58)
[2017-03-11] MEDS: Ferrous Sulfate TAB* 325 MG PO SCH ×3 (08:58→21:17)
[2017-03-11] MEDS: Amiodarone TAB* 200 MG PO SCH (08:58)
[2017-03-11] MEDS: Sucralfate TAB* 1 GM PO SCH (08:58)
[2017-03-11] MEDS: Calcium Carbonate TAB* 1250 MG (CALCIUM 500 MG) PO SCH ×2 (08:58→21:17)
[2017-03-11] MEDS: Atenolol TAB* 25 MG PO SCH (08:58)
[2017-03-11] MEDS: Omeprazole CAP* 20 MG PO SCH ×2 (08:58→21:17)
[2017-03-11 09:09] LABS: Albumin 1.6 g/dL (3.2-5.2); BUN/Creatinine Ratio 19.1 (8-20); C Reactive Protein 127.6 mg/L (< 5.00); Calcium 7.2 mg/dL (8.6-10.3); EGFR African American 64.2 (>60); EGFR Non-African American 49.9 (>60); Magnesium 1.8 mg/dL (1.9-2.7); Potassium 3.4 mmol/L (3.5-5.0); Total Bilirubin 0.4 mg/dL (0.2-1.0); Total Protein 4.6 g/dL (6.4-8.9)
[2017-03-11 10:33] LABS: Corrected Retic Count 0.7 % (0.5-1.5); Immature Retic Fraction 0.49
--- NOTE | 2017-03-11 10:53 | CONSULT ---
Subjective Date of Service: 03/11/17 Interval History: Admission Date: 03/10/17 Consult date 03/11/2017 Hospitalist service PMD Caitlyn Mitchell MD Motor Coach Supervisor Dr. Casanova CHIEF COMPLAINT: Weakness. Reason for consult: PE, Afib HISTORY OF PRESENT ILLNESS: Robert Gastelum is an 86-year-old man who spends half his time in [place] and half his time here in [place], [place] who recently got back from [place]. Him and his family identify Dr. Casanova as his training project manager. He has multiple medical issues as listed below. He is admitted with worsening weakness and anorexia. He also has a non productive cough and some edema. He denies any chest pain or worsening breathing, palpitations or syncope. He was found with sepsis/ bacteremia, b/l DVT's with PE on V/Q scan. Dr. Antoine saw the patient and stopped the chemotherapy because it can cause DVT/PE. He is anemic receiving pRBC. Also checking stool for heme PMhx: Parkinson's disease Metastatic malignant melanoma Paroxysmal Afib. Has been on coumadin and pradaxa in the past. Patient states he is not aware of him being in atrial fibrillation when he is in it. 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 Placed 2002, generator change 2009 Watchman placed 10/2016 GIB 01/2017 while on aspirin, plavix and protonix 40 mg PO BID. EGD reportedly "duodenal ulcer, gastritis, esophagitis, gastric erosions, hiatal hernia" Hip fracture early 01/2017 Hx of decubitus ulcer HTN IgG and IgA lambda monoclonal gammopathy; BPH; PAST SURGICAL HISTORY: Significant for cataracts, T and A in childhood, TURP for bladder calculus removal in 2005, left arm surgery, sentinel node biopsy, pacemaker, watchman ALLERGIES: He has allergy/adverse reaction to BEE STINGS. FAMILY HISTORY: Significant for diabetes and thyroid disease and heart disease. SOCIAL HISTORY: No tobacco, alcohol, or recreational drug use. His son, Jaime Gastelum, is his healthcare proxy. He is a . His daughter, her significant other and his significant other is present. Medications Active Medications: Aspirin (Aspirin Ec Low Dose*) 81 mg PO DAILY [facility] Last Admin: 03/11/17 08:58 Dose: 81 mg Atenolol (Tenormin Tab*) 25 mg PO DAILY [facility] Last Admin: 03/11/17 08:58 Dose: 25 mg Atorvastatin Calcium (Lipitor*) 20 mg PO DAILY [facility] Last Admin: 03/11/17 08:58 Dose: 20 mg Calcium Carbonate (Calcium Carbonate Tab*) 1,250 mg PO BID [facility] Last Admin: 03/11/17 08:58 Dose: 1,250 mg Carbidopa/Levodopa (Sinemet 25/100 Tab(*)) 3 tab PO TID [facility] Last Admin: 03/11/17 08:58 Dose: 3 tab Docusate Sodium (Colace Cap*) 100 mg PO BID [facility] Last Admin: 03/11/17 08:58 Dose: 100 mg Ferrous Sulfate (Ferrous Sulfate Tab*) 325 mg PO TID [facility] Last Admin: 03/11/17 08:58 Dose: 325 mg Heparin Sodium (Porcine) (Heparin Vial(*)) 0 units IV .PER PROTOCOL [facility] PRN Reason: Protocol Heparin Sodium/Dextrose (Heparin Drip 25,000 Units(*)) 25,000 units in 500 mls @ 0 mls/hr IV .NO INITIAL [facility]; As Directed PRN Reason: Protocol Last Admin: 03/10/17 21:59 Dose: 26 mls/hr Sodium Chloride (Ns 0.9% 1000 Ml*) 1,000 mls @ 100 mls/hr IV PER RATE [facility] Last Admin: 03/11/17 05:33 Dose: 100 mls/hr Cefepime HCl 1 gm/ Sodium (Chloride) 50 mls @ 100 mls/hr IVPB Q12H [facility] Last Admin: 03/11/17 01:18 Dose: 100 mls/hr Multivitamins (Theragran Tab*) 1 tab PO DAILY [facility] Last Admin: 03/11/17 08:58 Dose: 1 tab Omeprazole (Prilosec Cap*) 20 mg PO BID [facility] Last Admin: 03/11/17 08:58 Dose: 20 mg Pharmacy Profile Note (Coumadin Daily Reminder*) 0 note FOLLOW UP 1700 [facility] Potassium Chloride (Klor Con Er Tab*) 20 meq PO TID [facility] Last Admin: 03/11/17 08:58 Dose: 20 meq Sucralfate (Carafate*) 1 gm PO DAILY [facility] Last Admin: 03/11/17 08:58 Dose: 1 gm Warfarin Sodium (Coumadin Tab(*)) 5 mg PO ONCE@1700 ONE Stop: 03/11/17 17:01 Home Medications: Amiodarone HCl 200 mg PO BID 03/09/17 [History Confirmed 03/09/17] Aspirin 81 MG TAB 81 mg PO DAILY 03/09/17 [History Confirmed 03/09/17] Atenolol 25 mg PO DAILY 03/09/17 [History Confirmed 03/09/17] Calcium 600 mg PO BID 03/09/17 [History Confirmed 03/09/17] Carafate 1 gm PO DAILY 03/09/17 [History Confirmed 03/09/17] Carbidopa/Levodop 25/100 MG(*) 3 tab PO TID 03/09/17 [History Confirmed 03/09/17 ] Colace 100 mg PO BID 03/09/17 [History Confirmed 03/09/17] Crestor 10 mg PO DAILY 03/09/17 [History Confirmed 03/09/17] Ferrous Sulfate 325 mg PO TID 03/09/17 [History Confirmed 03/09/17] Lasix 20 mg PO DAILY 03/09/17 [History Confirmed 03/09/17] Mekinist 2 mg PO DAILY 03/09/17 [History Confirmed 03/09/17] Multi Vitamin 1 tab PO DAILY 03/09/17 [History Confirmed 03/09/17] Pantoprazole Sodium 40 mg PO BID 03/09/17 [History Confirmed 03/09/17] Potassium Chlor TAB 20 MEQ* 20 meq PO DAILY 03/09/17 [History Confirmed 03/09/17 ] Tafinlar 150 mg PO DAILY 03/09/17 [History Confirmed 03/09/17] Review of Systems - Measurements Intake and Output: Intake and Output Last 24 Hours 03/09/17 03/10/17 03/11/17 03/12/17 06:59 06:59 06:59 06:59 Intake Total 1000 3246.5 1160 Output Total 0 Balance 1000 3246.5 1160 Weight 184 lb 12.8 oz Intake: IV Fluids 1000 2006.5 ABX - CEFEPIME 55 Ceftriaxone 60 D5W NS (0.9%) 1000 Magnesium 60 NS 1831.5 Heparin 805 Oral 0 1240 355 Output: Urine 0 Other: Estimated Void Medium Medium # Bowel Movements 0 0 Estimated Stool Amount Small # Voids 1 0 - Review of Systems Constitutional Symptoms: Positive: Weakness, Fatigue Negative: Weight Gain, Weight Loss, Fever, Night Sweats HEENT: Negative: Change in Hearing, Vertigo Eyes: Negative: Change in Vision, Double Vision Thyroid: Positive: Normal Negative: Goiter, Thyroid Nodule, Cold Intolerance, Heat Intolerance, Frequent Defecation, Constipation, Palpitations, Primary Hypothyroidism, Primary Hyperthyroidism, Weight Loss, Weight Gain Pulmonary: Positive: Cough, Exercise Intolerance Negative: Sputum, Hemoptysis, Wheezing, Respiratory Distress, Home Oxygen Cardiology: Positive: Swelling of Ankles, Edema, Faintness Negative: Chest Pain, Palpitations, Peripheral Vascular Dis, Syncope, Claudication, Paroxysmal Nocturnal Dyspnea, Orthopnea Gastroenterology: Positive: Nausea, Anorexia Negative: Abdominal Pain, Vomiting, Indigestion, Difficulty Swallowing, Heartburn, Constipation, Diarrhea Musculoskeletal: Negative: Arthritis, Osteoporosis, Low Back Pain, Sciatica Endocrinology: Negative: Hyperglycemia, Hypoglycemia, Menstrual Abnormalities, Polydipsia, Polyuria, Gynecomastia, Pituitary Disease, Other Hematologic/Lymphatic: Positive: Anemia, Easy Brusing, Use of Antiplatelet Drugs Negative: Other Neurology: Negative: Hx of Stroke\\TIA, Hx Seizures Psychiatry: Negative: Unusual Anxiety, Suicidal Ideation, Hypomania, Eating Disorders, Other Allergic/Immunologic: Positive: Immunocompromise Negative: Hx Anaphylaxis, Hx Angioedema, Hx Environmental Allergies, Hx Seasonal Allergies, Hx HIV Review of Systems Statement: All other review of systems negative, unless stated above. Objective Vital Signs: Temp Pulse Resp BP Pulse Ox 99.5 F 70 16 105/58 96 03/11/17 08:04 03/11/17 08:04 03/11/17 08:04 03/11/17 08:04 03/11/17 08:04 Appearance: frail, elderly Ears/Nose/Mouth/Throat: Clear Oropharnyx, Mucous Membranes Moist Neck: Trachea Midline Respiratory: Symmetrical Chest Expansion and Respiratory Effort, Clear to Auscultation Cardiovascular: RRR - pacemaker in place, distant heart sounds, - Abdominal: NL Sounds; No Tenderness; No Distention Extremities: - - trace to 1+ b/l edema Skin: No Nodules or Sclerosis Neurological: Alert and Oriented x 3 Laboratory Results: 03/11/17 08:19 03/11/17 08:19 INR (Anticoag Therapy) 1.06 (0.89-1.11) 03/09/17 22:11 APTT 143.1 seconds (26.0-36.3) H* 03/11/17 08:19 Total Bilirubin 0.40 mg/dL (0.2-1.0) 03/11/17 08:19 AST 24 U/L (13-39) 03/11/17 08:19 ALT 4 U/L (7-52) L 03/11/17 08:19 Alkaline Phosphatase 179 U/L (34-104) H 03/11/17 08:19 CK-MB (CK-2) 2.8 ng/mL (0.6-6.3) 03/09/17 22:11 B-Natriuretic Peptide 297 pg/mL (-100) H 03/11/17 08:19 Total Protein 4.6 g/dL (6.4-8.9) L 03/11/17 08:19 Albumin 1.6 g/dL (3.2-5.2) L 03/11/17 08:19 Globulin 3.0 g/dL (2-4) 03/11/17 08:19 Albumin/Globulin Ratio 0.5 (1-3) L 03/11/17 08:19 TSH 3.51 mcIU/mL (0.34-5.60) 03/09/17 22:11 03/09/17 22:11 Troponin I 0.03 Diagnostic Imaging: tte 03/10/2017: abnormal ventricular septal wall motion possibly due to RV pacing , The RV size and function were reviewed and appear normal. LVEF 55-60%, LA mild-moderately dilated, trace to mild TR with borderline pHTN cxr 03/09/2017: lungs clear v/q 03/10/2017: multiple perfusion defects without ventilatory defects EKG Data: EKG [facility] Tele reviewed no arrhythmias Assessment/Plan Mr. Chaparro is an 86 year old man admitted with weakness and anorexia found with b/l DVT/PE and bacteremia/sepsis Cardiac history significant for PAFib, Pacemaker and watchman 10/2016. Recent UGIB due to PUD while on aspirin/plavix post-watchman. - I think his current change in symptoms are from the PE and sepsis but as to not confuse the situation would stop amiodarone (ordered), will remain in system for months regardless. He also states he could not feel being in Afib previously. - Continue atenolol - It has been 5 months since the watchman was placed. Now that he is going to be on anticoagulation would stop the aspirin (ordered) as I think especially with recent UGIB the risks of continuing outweigh the benefits. - IVC filter not mandatory but not unreasonable with recent GI bleed and DVT/PE but would need to be taken into consideration in light of prognosis from other medical conditions - Patient should follow up with Dr. Casanova after discharge Thank you for allowing me to participate in the cardiovascular care of this patient. Please do not hesitate to contact me with questions or concerns
[2017-03-11 11:38] LABS: Folate 11.92 ng/mL (>3.99)
--- NOTE | 2017-03-11 13:44 | CONS ---
CONSULTATION REPORT: DATE OF CONSULT: 03/11/17 CONSULTING SERVICE: Infectious Disease. REQUESTING PHYSICIAN: Dr. Caitlyn Mitchell. REASON FOR CONSULTATION: Klebsiella bacteremia. IMPRESSION: 1. Klebsiella pneumoniae bacteremia, present on 4 of 4 bottles. He has had 2 to 3 weeks of chills without any focal signs or symptoms. He has a recent right hip hemiarthroplasty which has been asymptomatic and benign on exam, the incision is intact. 2. He has no urinary symptoms or right upper quadrant pain. However, other considerations include urinary tract infection including stone disease related infection, gallbladder disease, liver abscess. He has a pacemaker and a Watchman device. Gram negatives are low likelihood of causing intravascular infection. So at this point, I think that cardiac device for that infection is low likelihood. 3. Metastatic melanoma, on chronic monoclonal antibody therapy. 4. History of Staphylococcus aureus bacteremia in 2013. 5. Recent right hip fracture status post hemiarthroplasty, January 2017. 6. Now with deep vein thrombosis and pulmonary embolus. 7. Nephrolithiasis. 8. Parkinson's disease. RECOMMENDATION: Agree with cefepime 1 g IV every 12 hours, dose for his current GFR. I will repeat his blood cultures in a day or two. We will obtain a CT without contrast of the abdomen and pelvis to evaluate for liver abscess, obstructing stone disease in the ureters or gallbladder disease which could provide a clue as to the source of his Klebsiella bacteremia. HISTORY OF PRESENT ILLNESS: This is an 86-year-old man with pacemaker and Watchman device with metastatic melanoma, admitted with malaise and chills. He has had 2 to 3 weeks of chills, decreased appetite, malaise and he was in [place] when this started. Back in January, he had a fall with right hip fracture and had a hemiarthroplasty and that has been uneventful except that they have noticed over the last 2 or 3 weeks, he stopped getting out of his chair, he says because he felt weak. He does not have any pain when he stands or when he walks. His incision has been intact, has not been draining or painful. When he got back from [place], he saw Dr. Mitchell for lower leg swelling, fatigue, malaise, she directed him to the hospital. He is found to have DVT and pulmonary embolus. A chest x-ray showed no acute disease. A transthoracic echocardiogram showed ejection fraction 55% to 60%, mild aortic regurgitation. Blood cultures were taken 4 of 4 growing Klebsiella pneumoniae. He was started on ceftriaxone on admission. It was changed to cefepime today. He had a fever yesterday morning and none since then. He was initially hypotensive and that is resolved with fluids and antibiotics. He has been anticoagulated here. He denies any back pain or joint pain. No abdominal pain, no recent diarrhea or right upper quadrant pain. PAST MEDICAL HISTORY: 1. Metastatic melanoma, treated with dabrafenib and trametinib. 2. DVT and pulmonary embolus. 3. Atrial fibrillation with Watchman device. 4. Pacemaker. 5. Parkinson's disease. 6. Hyperlipidemia. 7. Hypertension. 8. IgG and IgA lambda monoclonal gammopathy. 9. Benign prostatic hypertrophy status post transurethral resection of the prostate. 10. Gastroesophageal reflux disease. 11. Nephrolithiasis. 12. Diverticulosis. 13. Robyn's thyroiditis. 14. Colon polyps. 15. Renal cyst. 16. Bladder stone. 17. History of Staph aureus bacteremia. ALLERGIES: No known drug allergies. MEDICATIONS: 1. Atenolol. 2. Lipitor. 3. Calcium carbonate. 4. Sinemet. 5. Cefepime 1 g every 12 hours. 6. Ferrous sulfate. 7. Heparin infusion. 8. Omeprazole. 9. Sucralfate. FAMILY HISTORY: No recurrent infections or tuberculosis. SOCIAL HISTORY: He lives in [place] most of the year, he is back in [place] now. He has a significant other he lives with. No sick contacts. REVIEW OF SYSTEMS: All negative except as noted above. PHYSICAL EXAM: Vital Signs: Temperature is 37, heart rate 80, respiratory rate 16, blood pressure is 101/54, and O2 sat 99% on room air. General: He is awake, not in distress. Neurologic: He is oriented x3, follows all commands. He moves all of his extremities. HEENT: There is no conjunctival hemorrhage. Oropharynx without lesions. Neck: Supple without nuchal rigidity. Lymph nodes : There is no cervical, supraclavicular, inguinal, axillary, or epitrochlear lymphadenopathy. Heart: Regular rate and rhythm without murmurs, rubs, or gallops. Lungs: Clear to auscultation bilaterally. Abdomen: Soft, nontender , and nondistended without right upper quadrant tenderness. There is bowel sounds present. Skin: There is no rash or splinter hemorrhages except for some ecchymosis on his bilateral forearms and legs. His right hip incision is intact. There is no erythema. Musculoskeletal: There is no spine tenderness to palpation or joint synovitis including the right hip. There is negative for log roll sign. There is no pain with internal or external rotation though the range of motion is limited. DIAGNOSTIC STUDIES/LAB DATA: White blood cell count 4.5, hemoglobin 7, and platelets 181, creatinine is 1.3, CRP 130. Urinalysis shows blood and no leukocyte esterase or nitrites. Please see impressions and recommendations as outlined above, which I have discussed with Dr. Mitchell. Thank you for asking me to see Mr. Gastelum in consultation. [id number]/[facility] #: [id number] MARLEE
--- NOTE | 2017-03-11 14:26 | RAD ---
CLINICAL HISTORY: Gram-negative bacteremia COMPARISON: July 18, 2014 TECHNIQUE: Multiple contiguous axial CT scans were obtained of the abdomen and pelvis, without intravenous contrast enhancement. Coronal and sagittal multiplanar reformations are submitted for review. Oral contrast was not administered. FINDINGS: The study is limited by the lack of intravenous contrast. This limits evaluation of the solid organs and vasculature. LUNG BASES: There are small bilateral pleural effusions LIVER: The liver is normal in shape, size, contour, and attenuation. BILE DUCTS: There is no intrahepatic or extrahepatic biliary dilatation. GALLBLADDER: The gallbladder is normal, without pericholecystic inflammatory change. PANCREAS: The pancreas is normal, without mass or ductal dilatation. SPLEEN: Normal in size and appearance. UPPER GI TRACT: Evaluation of the gastrointestinal tract is limited by incomplete gastric distention. The upper GI tract is unremarkable. SMALL BOWEL AND MESENTERY: The small bowel is normal in contour, course, and caliber. There is no obstruction or dilatation. COLON: There are multiple diverticula of the sigmoid colon. There is no pericolonic inflammatory change. ADRENALS: Normal bilaterally. KIDNEYS: There is a 0.2 cm right renal calyceal stone. There is no appreciable hydronephrosis, though evaluation of the distal ureters is limited by streak artifact from right hip prosthesis. There are multiple simple renal cysts bilaterally. BLADDER: The bladder is grossly normal, though evaluation is limited by streak artifact from a right hip prosthesis. PELVIC ORGANS: The prostate gland is grossly normal, though evaluation is limited by streak artifact from a right hip prosthesis. AORTA: There is calcific atherosclerotic disease of the abdominal aorta and its branches, without aneurysmal dilatation IVC: Unremarkable LYMPH NODES: There is no lymphadenopathy by size criteria. ABDOMINAL WALL: There is a small fat-containing umbilical hernia. BONES AND SOFT TISSUES: Degenerative changes are noted along the spine. The patient is status post right hip arthroplasty OTHER: None IMPRESSION: 1. PUNCTATE RIGHT RENAL CALYCEAL STONE, WITHOUT HYDRONEPHROSIS, THOUGH EVALUATION OF THE DISTAL URETERS AND BLADDER IS LIMITED BY STREAK ARTIFACT FROM A RIGHT HIP PROSTHESIS. 2. DIVERTICULOSIS. 3. SMALL BILATERAL PLEURAL EFFUSIONS.
[2017-03-11] MEDS ORDERED: Warfarin TAB(*) 5 MG PO ONE (17:00)
[2017-03-11] MEDS: Heparin DRIP 25,000 UNITS(*) 25,000 UNITS/500 ML BAG IV SCH (21:15)
[2017-03-12] MEDS: Cefepime(*) 1 GM in NS 0.9% 50 ML* 50 ML IVPB SCH ×2 (00:17→12:24)
[2017-03-12 02:20] LABS: Hematocrit 28 % (42-52); Hemoglobin 9.3 g/dl (14.0-18.0); Mean Corpuscular HGB Conc 33 g/dl (31-36); Mean Corpuscular Hemoglobin 31 pg (27-31); Mean Corpuscular Volume 93 fL (80-94); Mean Platelet Volume 7 um3 (7.4-10.4); Red Blood Count 3.03 10^6/ul (4.0-5.4); Red Cell Distribution Width 17 % (10.5-15); White Blood Count 5.2 10^3/ul (3.5-10.8)
[2017-03-12 05:18] LABS: Hematocrit 30 % (42-52); Hemoglobin 10.2 g/dl (14.0-18.0); Mean Corpuscular HGB Conc 34 g/dl (31-36); Mean Corpuscular Hemoglobin 31 pg (27-31); Mean Corpuscular Volume 92 fL (80-94); Mean Platelet Volume 7 um3 (7.4-10.4); Red Blood Count 3.27 10^6/ul (4.0-5.4); Red Cell Distribution Width 17 % (10.5-15); White Blood Count 6.2 10^3/ul (3.5-10.8)
[2017-03-12 05:35] LABS: BUN/Creatinine Ratio 17.5 (8-20); C Reactive Protein 113.2 mg/L (< 5.00); Calcium 7.4 mg/dL (8.6-10.3); EGFR African American 74.2 (>60); EGFR Non-African American 57.7 (>60); Potassium 4.4 mmol/L (3.5-5.0)
[2017-03-12] MEDS: Omeprazole CAP* 20 MG PO SCH ×2 (08:13→21:28)
[2017-03-12] MEDS: Docusate CAP* 100 MG PO SCH ×2 (08:14→21:28)
[2017-03-12] MEDS: Sucralfate TAB* 1 GM PO SCH (08:14)
[2017-03-12] MEDS: Calcium Carbonate TAB* 1250 MG (CALCIUM 500 MG) PO SCH ×2 (08:14→21:31)
[2017-03-12] MEDS: Atorvastatin* 20 MG TAB PO SCH (08:14)
[2017-03-12] MEDS: Potassium Chlor TAB* 20 MEQ TAB.ER PO SCH ×3 (08:14→21:28)
[2017-03-12] MEDS: Ferrous Sulfate TAB* 325 MG PO SCH (08:14)
[2017-03-12] MEDS: Vitamin THERAPEUTIC TAB PO SCH (08:14)
[2017-03-12] MEDS: Carbidopa/Levodop 25/100 MG TAB(*) PO SCH ×3 (08:14→21:28)
[2017-03-12] MEDS: Atenolol TAB* 25 MG PO SCH (08:14)
[2017-03-12] MEDS: NS 0.9% 1000 ML* 1,000 ML IV SCH (08:20)
--- NOTE | 2017-03-12 10:20 | PN ---
Subjective Date of Service: 03/12/17 Interval History: f/u Afib, pacemaker, watchman, dvt/pe No chest or chest pain at rest Main complaint is constipation today Hgb now > 10 after 2 units pRBC, + heme stool tele: AP-LABORER POLE CREW, PVCs Medications Active Medications: Atenolol (Tenormin Tab*) 25 mg PO DAILY [facility] Last Admin: 03/12/17 08:14 Dose: 25 mg Atorvastatin Calcium (Lipitor*) 20 mg PO DAILY [facility] Last Admin: 03/12/17 08:14 Dose: 20 mg Calcium Carbonate (Calcium Carbonate Tab*) 1,250 mg PO BID [facility] Last Admin: 03/12/17 08:14 Dose: 1,250 mg Carbidopa/Levodopa (Sinemet 25/100 Tab(*)) 3 tab PO TID [facility] Last Admin: 03/12/17 08:14 Dose: 3 tab Docusate Sodium (Colace Cap*) 100 mg PO BID [facility] Last Admin: 03/12/17 08:14 Dose: 100 mg Ferrous Sulfate (Ferrous Sulfate Tab*) 325 mg PO TID [facility] Last Admin: 03/12/17 08:14 Dose: 325 mg Heparin Sodium (Porcine) (Heparin Vial(*)) 0 units IV .PER PROTOCOL [facility] PRN Reason: Protocol Heparin Sodium/Dextrose (Heparin Drip 25,000 Units(*)) 25,000 units in 500 mls @ 0 mls/hr IV .NO INITIAL BOLUS [facility]; As Directed PRN Reason: Protocol Last Admin: 03/11/17 21:15 Dose: 21 mls/hr Sodium Chloride (Ns 0.9% 1000 Ml*) 1,000 mls @ 100 mls/hr IV PER RATE [facility] Last Admin: 03/12/17 08:20 Dose: 100 mls/hr Cefepime HCl 1 gm/ Sodium (Chloride) 50 mls @ 100 mls/hr IVPB Q12H [facility] Last Admin: 03/12/17 00:17 Dose: 100 mls/hr Multivitamins (Theragran Tab*) 1 tab PO DAILY [facility] Last Admin: 03/12/17 08:14 Dose: 1 tab Omeprazole (Prilosec Cap*) 20 mg PO BID [facility] Last Admin: 03/12/17 08:13 Dose: 20 mg Pharmacy Profile Note (Coumadin Daily Reminder*) 0 note FOLLOW UP 1700 [facility] Last Admin: 03/11/17 16:53 Dose: 1 note Potassium Chloride (Klor Con Er Tab*) 20 meq PO TID [facility] Last Admin: 03/12/17 08:14 Dose: 20 meq Sucralfate (Carafate*) 1 gm PO DAILY [facility] Last Admin: 03/12/17 08:14 Dose: 1 gm Objective Vital Signs: Temp Pulse Resp BP Pulse Ox 97.8 F 70 14 119/58 92 03/12/17 07:47 03/12/17 07:47 03/12/17 08:00 03/12/17 07:47 03/12/17 07:47 Appearance: frail, elderly Ears/Nose/Mouth/Throat: Clear Oropharnyx, Mucous Membranes Moist Neck: Trachea Midline Respiratory: Symmetrical Chest Expansion and Respiratory Effort, Clear to Auscultation Cardiovascular: RRR - pacemaker in place, distant heart sounds, - Abdominal: NL Sounds; No Tenderness; No Distention Extremities: - - trace to 1+ b/l edema Skin: No Nodules or Sclerosis Neurological: Alert and Oriented x 3 Laboratory Results: 03/12/17 05:06 03/12/17 05:06 INR (Anticoag Therapy) 1.21 (0.89-1.11) H 03/12/17 05:06 APTT 83.1 seconds (26.0-36.3) H 03/12/17 05:06 Total Bilirubin 0.40 mg/dL (0.2-1.0) 03/11/17 08:19 AST 24 U/L (13-39) 03/11/17 08:19 ALT 4 U/L (7-52) L 03/11/17 08:19 Alkaline Phosphatase 179 U/L (34-104) H 03/11/17 08:19 CK-MB (CK-2) 2.8 ng/mL (0.6-6.3) 03/09/17 22:11 B-Natriuretic Peptide 297 pg/mL (-100) H 03/11/17 08:19 Total Protein 4.6 g/dL (6.4-8.9) L 03/11/17 08:19 Albumin 1.6 g/dL (3.2-5.2) L 03/11/17 08:19 Globulin 3.0 g/dL (2-4) 03/11/17 08:19 Albumin/Globulin Ratio 0.5 (1-3) L 03/11/17 08:19 TSH 3.51 mcIU/mL (0.34-5.60) 03/09/17 22:11 Diagnostic Imaging: tte 03/10/2017: abnormal ventricular septal wall motion possibly due to RV pacing , The RV size and function were reviewed and appear normal. LVEF 55-60%, LA mild-moderately dilated, trace to mild TR with borderline pHTN cxr 03/09/2017: lungs clear v/q 03/10/2017: multiple perfusion defects without ventilatory defects EKG Data: EKG AP-LABORER POLE CREW Tele reviewed no arrhythmias Assessment/Plan Mr. Chaparro is an 86 year old man admitted with weakness and anorexia found with b/l DVT/PE and bacteremia/sepsis Cardiac history significant for PAFib, Pacemaker and watchman 10/2016. Recent UGIB due to PUD 01/2017 while on aspirin/ plavix post-watchman. - I think his current change in symptoms are from the PE and sepsis but as to not confuse the situation would hold the amiodarone, will remain in system for months regardless. He also states he could not feel being in Afib previously although cannot be verified - Continue atenolol - It has been 5 months since the watchman was placed. Now that he is going to be on anticoagulation would stay off the aspirin as I think especially with recent UGIB the risks of continuing outweigh the benefits. - IVC filter not mandatory but not unreasonable with recent GI bleed and DVT/PE but would need to be taken into consideration in light of prognosis from other medical conditions - Patient should follow up with Dr. Casanova after discharge Thank you for allowing me to participate in the cardiovascular care of this patient. Please do not hesitate to contact me with questions or concerns
[2017-03-12] MEDS: Polyethylene Glycol 3350* 17 GM PACKET PO SCH (12:24)
[2017-03-12 16:03] LABS: Immunoglobulin A 301 mg/dL (61 - 356); Immunoglobulin G 1550 mg/dL (767 - 1590); Immunoglobulin M 8 mg/dL (37 - 286)
[2017-03-12] MEDS ORDERED: Warfarin TAB(*) 5 MG PO ONE (17:00)
[2017-03-13] MEDS: Cefepime(*) 1 GM in NS 0.9% 50 ML* 50 ML IVPB SCH ×2 (00:22→13:09)
[2017-03-13] MEDS: Heparin DRIP 25,000 UNITS(*) 25,000 UNITS/500 ML BAG IV SCH ×2 (06:36→08:31)
[2017-03-13 07:59] LABS: Total Iron Binding Capacity 105 mcg/dL (250-450); Transferrin < 75 mg/dL (203-362)
[2017-03-13 08:01] LABS: BUN/Creatinine Ratio 14.3 (8-20); Blood Urea Nitrogen 16 mg/dL (6-24); C Reactive Protein 101.36 mg/L (< 5.00); CO2 Carbon Dioxide 23 mmol/L (22-32); Chloride 101 mmol/L (101-111); EGFR African American 80.3 (>60); EGFR Non-African American 62.5 (>60); Glucose 94 mg/dL (70-100); Sodium 128 mmol/L (133-145)
[2017-03-13 08:13] LABS: Iron 28 ug/dL (50-212)
[2017-03-13 08:14] LABS: Anion Gap 4 mmol/L (2-11)
[2017-03-13] MEDS: Atorvastatin* 20 MG TAB PO SCH (08:37)
[2017-03-13] MEDS: Carbidopa/Levodop 25/100 MG TAB(*) PO SCH ×3 (08:37→19:23)
[2017-03-13] MEDS: Vitamin THERAPEUTIC TAB PO SCH (08:38)
[2017-03-13] MEDS: Calcium Carbonate TAB* 1250 MG (CALCIUM 500 MG) PO SCH ×2 (08:38→19:23)
[2017-03-13] MEDS: Docusate CAP* 100 MG PO SCH ×2 (08:38→19:23)
[2017-03-13] MEDS: Atenolol TAB* 25 MG PO SCH (08:38)
[2017-03-13] MEDS: Omeprazole CAP* 20 MG PO SCH ×2 (08:38→19:23)
[2017-03-13] MEDS: Potassium Chlor TAB* 20 MEQ TAB.ER PO SCH ×3 (08:38→19:23)
[2017-03-13] MEDS: Polyethylene Glycol 3350* 17 GM PACKET PO SCH (08:39)
[2017-03-13] MEDS: Sucralfate TAB* 1 GM PO SCH (08:39)
[2017-03-13 10:26] LABS: Hematocrit 31 % (42-52); Hemoglobin 10.3 g/dl (14.0-18.0); Mean Corpuscular HGB Conc 33 g/dl (31-36); Mean Corpuscular Hemoglobin 30 pg (27-31); Mean Corpuscular Volume 92 fL (80-94); Mean Platelet Volume 7 um3 (7.4-10.4); Red Cell Distribution Width 16 % (10.5-15); White Blood Count 4.9 10^3/ul (3.5-10.8)
[2017-03-13] MEDS ORDERED: Ondansetron INJ* 2 MG/ML VIAL IV PRN (12:49)
[2017-03-13] MEDS ORDERED: Warfarin TAB(*) 5 MG PO ONE (17:00)
[2017-03-14] MEDS: Cefepime(*) 1 GM in NS 0.9% 50 ML* 50 ML IVPB SCH (00:03)
[2017-03-14 05:25] LABS: Hematocrit 30 % (42-52); Mean Corpuscular HGB Conc 34 g/dl (31-36); Mean Corpuscular Hemoglobin 31 pg (27-31); Mean Corpuscular Volume 93 fL (80-94); Mean Platelet Volume 7 um3 (7.4-10.4); Red Blood Count 3.18 10^6/ul (4.0-5.4); Red Cell Distribution Width 16 % (10.5-15); White Blood Count 5.3 10^3/ul (3.5-10.8)
[2017-03-14 05:53] LABS: BUN/Creatinine Ratio 14.3 (8-20); C Reactive Protein 98.48 mg/L (< 5.00); Calcium 7.7 mg/dL (8.6-10.3); EGFR African American 80.3 (>60); EGFR Non-African American 62.5 (>60); Potassium 4.8 mmol/L (3.5-5.0)
[2017-03-14] MEDS: Atorvastatin* 20 MG TAB PO SCH (08:22)
[2017-03-14] MEDS: Ferrous Sulfate TAB* 325 MG PO SCH (08:22)
[2017-03-14] MEDS: Docusate CAP* 100 MG PO SCH ×2 (08:22→22:12)
[2017-03-14] MEDS: Carbidopa/Levodop 25/100 MG TAB(*) PO SCH ×3 (08:22→22:11)
[2017-03-14] MEDS: Sucralfate TAB* 1 GM PO SCH (08:22)
[2017-03-14] MEDS: Potassium Chlor TAB* 20 MEQ TAB.ER PO SCH ×3 (08:22→22:12)
[2017-03-14] MEDS: Atenolol TAB* 25 MG PO SCH (08:23)
[2017-03-14] MEDS: Omeprazole CAP* 20 MG PO SCH ×2 (08:23→22:12)
[2017-03-14] MEDS: Polyethylene Glycol 3350* 17 GM PACKET PO SCH (08:23)
[2017-03-14] MEDS: Vitamin THERAPEUTIC TAB PO SCH (08:23)
[2017-03-14] MEDS: Calcium Carbonate TAB* 1250 MG (CALCIUM 500 MG) PO SCH ×2 (08:23→22:11)
--- NOTE | 2017-03-14 10:19 | PN ---
Progress Note - Progress Note SOAP: Subjective: DOS: 03/14/17 CC: bacteremia HPI: 86 yo man with admission for DVT/PE and found to have bacteremia. Has had 3 weeks of chills and sweats. No pain, rash, or diarrhea. Appetite is good. Objective: [] Vital Signs Temp 36.8 C 03/14/17 07:43 Pulse 69 03/14/17 07:43 Resp 20 03/14/17 07:43 BP 120/64 03/14/17 07:43 Pulse Ox 98 03/14/17 07:43 Intake & Output 03/13/17 03/14/17 03/14/17 18:59 06:59 18:59 Intake Total 727 452 470 Balance 727 452 470 Intake: IVPB 60 ABX - CEFEPIME 60 Heparin 152 Oral 667 300 470 Other: Estimated Void Medium Large Medium Date of Last Bowel 03/14/17 Movement # Bowel Movements 2 1 Estimated Stool Amount Small Large Small # Voids 1 2 1 Gen:Awake, no distress HEENT:PERRL, MMM Neck:Supple Heart:RRR no murmur Lungs:CTA BL Abd:+BS NTND soft Skin: eccymoses BL arms MSK: no spine tenderness, no joint tenderness Laboratory Results - last 24 hr 03/13/17 03/13/17 03/14/17 10:12 16:46 03:00 WBC 4.9 RBC 3.40 L Hgb 10.3 L Hct 31 L MCV 92 MCH 30 MCHC 33 RDW 16 H Plt Count 193 MPV 7 L Neut % (Auto) Lymph % (Auto) Parmer % (Auto) Eos % (Auto) Baso % (Auto) Absolute Neuts (auto) Absolute Lymphs (auto) Absolute Monos (auto) Absolute Eos (auto) Absolute Basos (auto) Absolute Nucleated RBC Nucleated RBC % INR (Anticoag Therapy) 4.05 H APTT 195.4 H* 89.8 H Sodium Potassium Chloride Carbon Dioxide Anion Gap BUN Creatinine Est GFR ( Amer) Est GFR (Non-Af Amer) BUN/Creatinine Ratio Glucose Calcium C-Reactive Protein 03/14/17 03/14/17 04:55 04:55 WBC 5.3 RBC 3.18 L Hgb 10.0 L Hct 30 L MCV 93 MCH 31 MCHC 34 RDW 16 H Plt Count 216 MPV 7 L Neut % (Auto) 59.2 Lymph % (Auto) 26.2 Parmer % (Auto) 8.4 Eos % (Auto) 5.1 Baso % (Auto) 1.1 Absolute Neuts (auto) 3.1 Absolute Lymphs (auto) 1.4 Absolute Monos (auto) 0.4 Absolute Eos (auto) 0.3 Absolute Basos (auto) 0.1 Absolute Nucleated RBC 0 Nucleated RBC % 0 INR (Anticoag Therapy) APTT Sodium 126 L Potassium 4.8 Chloride 101 Carbon Dioxide 28 Anion Gap -3 L BUN 16 Creatinine 1.12 Est GFR ( Amer) 80.3 Est GFR (Non-Af Amer) 62.5 BUN/Creatinine Ratio 14.3 Glucose 96 Calcium 7.7 L C-Reactive Protein 98.48 H Assessment: 1. Klebsiella bacteremia, CT Abd/pelvis negative, no Klebsiella in urine; no focal signs/symptoms, intravascular infection is possible with cardiac device though unusual for GNR 2. elevated CRP 3. presence of pacemaker and Watchman 4. DVT/PE 5. anemia Plan: 1. change cefepime to ceftriaxone, BC recheck tomorrow (ordered). FER if family is agreeable. Alternative is defined duration of IV antibiotics and monitor response after stopping. 35 minutes floor time >50% face to face with patient and significant other discussing FER and implications for positive result. All questions answered.
[2017-03-14 11:42] LABS: Albumin 1.6 g/dL (3.4-4.7); Gamma Globulin 1.3 g/dL (0.6-1.6); Total Protein(PEP) 4.9 g/dL (6.3 - 7.9)
[2017-03-14] MEDS: cefTRIAXone VIAL(*) 1,000 MG in NS 0.9% 50 ML* 50 ML IVPB SCH (11:59)
[2017-03-15] MEDS: Sucralfate TAB* 1 GM PO SCH (06:29)
[2017-03-15 06:35] LABS: Hematocrit 30 % (42-52); Mean Corpuscular HGB Conc 34 g/dl (31-36); Mean Corpuscular Hemoglobin 31 pg (27-31); Mean Corpuscular Volume 93 fL (80-94); Mean Platelet Volume 7 um3 (7.4-10.4); Red Blood Count 3.21 10^6/ul (4.0-5.4); Red Cell Distribution Width 16 % (10.5-15); White Blood Count 4.8 10^3/ul (3.5-10.8)
[2017-03-15 06:51] LABS: BUN/Creatinine Ratio 15.7 (8-20); C Reactive Protein 86.45 mg/L (< 5.00); Calcium 8.1 mg/dL (8.6-10.3); EGFR African American 77.9 (>60); EGFR Non-African American 60.6 (>60); Potassium 4.9 mmol/L (3.5-5.0)
[2017-03-15] MEDS: Potassium Chlor TAB* 20 MEQ TAB.ER PO SCH ×2 (08:34→22:33)
[2017-03-15] MEDS: Atenolol TAB* 25 MG PO SCH (09:27)
[2017-03-15] MEDS: Atorvastatin* 20 MG TAB PO SCH (09:27)
[2017-03-15] MEDS: Omeprazole CAP* 20 MG PO SCH ×2 (09:28→22:33)
[2017-03-15] MEDS: Docusate CAP* 100 MG PO SCH ×2 (09:28→22:34)
[2017-03-15] MEDS: Calcium Carbonate TAB* 1250 MG (CALCIUM 500 MG) PO SCH ×2 (09:28→22:34)
[2017-03-15] MEDS: Carbidopa/Levodop 25/100 MG TAB(*) PO SCH ×3 (09:28→22:34)
[2017-03-15] MEDS: Vitamin THERAPEUTIC TAB PO SCH (09:28)
[2017-03-15] MEDS: Polyethylene Glycol 3350* 17 GM PACKET PO SCH (10:39)
[2017-03-15] MEDS: cefTRIAXone VIAL(*) 1,000 MG in NS 0.9% 50 ML* 50 ML IVPB SCH (11:33)
[2017-03-15] MEDS ORDERED: Naloxone* 0.4 MG/ML 1 ML VIAL ONE (12:23)
[2017-03-15] MEDS ORDERED: Midazolam* 1 MG/ML 5 ML VIAL (5 MG) ONE (12:23)
[2017-03-15] MEDS ORDERED: Lidocaine 2% VISCOUS* 15 ML UDC ONE (12:23)
[2017-03-15] MEDS ORDERED: Flumazenil* 0.1 MG/ML 5 ML MDV ONE (12:23)
[2017-03-15] MEDS ORDERED: fentaNYL* 50 MCG/ML 2 ML VIAL (100 MCG VIAL) ONE (12:23)
--- NOTE | 2017-03-15 14:25 | TEE ---
Patient: [facility] Rec#: [id number] : 1930 Date: 03/15/2017 Age: 86y Height: 177.8 cm / 70.0 in Weight: 83.46 kg / 183.9 lbs Sex: M BSA: 2.01 Room#: OP Type: Inpatient Referring: Caitlyn Mitchell MD Performing: Kalia Casanova MD Reading: Kalia Casanova MD Companion Caregiver: Meagan Cook RDCS Nurse: Namrata Aden RN Transesophageal Echocardiogram Indication: Bacteremia BP: 111/57 HR: 70 Rhythm: Paced Indications Bacteremia Findings History: Adm. DVT and pulmonary embolism, PAF, s/p Watchman insert, SSS s/p pacer insert, HTN, metastatic melanoma. Technical Comments: The study quality is good. Left Ventricle: The left ventricular chamber size is normal. Mild global hypokinesis of the left ventricle is observed. There is mildly decreased left ventricular systolic function. The estimated ejection fraction is 40-45%. Left Atrium: The left atrium is mild to moderately dilated. No mass is visualized within the left atrium. No thrombus is visualized within the left atrium. A Watchman device is visualized in the left atrial appendange. Right Ventricle: The right ventricular cavity size is normal. The right ventricular global systolic function is mildly reduced. A pacemaker wire is visualized in the right ventricle. Right Atrium: The right atrium is mild to moderately dilated. A pacemaker wire is visualized in the right atrium. A patent foramen ovale is visualized. A patent foramen ovale is demonstrated by color Doppler and agitated contrast. There is evidence of an atrial septal aneurysm. Aortic Valve: The aortic valve is trileaflet. The aortic valve leaflets are mildly thickened. There is moderate aortic regurgitation. There is no evidence of aortic stenosis. There is no aortic vegetation present. Mitral Valve: The mitral valve leaflets are mildly thickened. There is moderate mitral regurgitation. There is no evidence of mitral stenosis. No vegetation is observed on the mitral valve. Tricuspid Valve: The tricuspid valve leaflets are normal. There is trace tricuspid regurgitation. There is no tricuspid stenosis. No vegetation is observed on the tricuspid valve. Pulmonic Valve: The pulmonic valve appears normal. There is mild to moderate pulmonic regurgitation. There is no pulmonic stenosis. No vegetation is observed on the pulmonic valve. Pericardium: There is no significant pericardial effusion. Aorta: There is mild dilatation of the ascending aorta. The aortic root is normal in size. There is plaque visualized in the descending aorta.There is moderate atherosclerotic plaque in the visualized segments of the aorta. Pulmonary Artery: The main pulmonary artery appears normal. Venous: The bicaval view was obtained and appears normal. The pulmonary veins appear normal. 1 of 4 visualized. The pulmonary veins appear normal in size. FER Procedures: All standard views were attempted within the limitations of patient tolerance and safety. History and physical as well as labs were reviewed. The patient was in a fasting state. Risks and benefits of the procedure, including alternatives, were discussed and written informed consent was obtained. The patient and/or their health care it sales representative expressed understanding of the procedure, risks and benefits. Baseline and continuous monitoring of blood pressure, heart rate, pulse oximetry and heart rhythm was performed throughout the procedure. The appropriate time-out procedure was performed as per [facility] protocol. The patient was placed in the left lateral decubitus position. The patient's posterior pharynx was anesthetized with 20ml of 2% viscous lidocaine. The patient received IV Midazolam with a total dose of 2 mg. The patient received IV Fentanyl with a total dose of 25 mcg. The multiplane transesophageal echocardiogram probe was inserted through the posterior oropharynx and advanced into the esophagus without difficulty. Multiple 2D images were obtained of the heart and its related structures. Color flow Doppler was used for evaluation. Spectral Doppler was also used. The atrial septum was interrogated with color flow Doppler. At the conclusion of the procedure the probe was removed with continuous suction without complications. The patient tolerated the procedure with no apparent complications. Contrast: Normal saline was used as contrast for the bubble study. Image 42. Intravenous contrast was used to help determine presence of intracardiac shunting. Conclusions Adm. DVT and pulmonary embolism, PAF, s/p Wathcman insert, SSS s/p pacer insert, HTN, metastatic melanoma. Mild global hypokinesis of the left ventricle is observed. There is mildly decreased left ventricular systolic function. The estimated ejection fraction is 40-45%. No thrombus is visualized within the left atrium. A Watchman device is visualized in the left atrial appendange. A patent foramen ovale is demonstrated by color Doppler and agitated contrast. There is evidence of an atrial septal aneurysm. The aortic valve leaflets are mildly thickened. There is moderate aortic regurgitation. There is no aortic vegetation present. There is moderate mitral regurgitation. No vegetation is observed on the mitral valve. There is trace tricuspid regurgitation. No vegetation is observed on the tricuspid valve. There is no significant pericardial effusion. There is plaque visualized in the descending aorta.There is moderate atherosclerotic plaque in the visualized segments of the aorta. Measurements Name Value Normal Range Aortic Annulus 2.4 cm (1.4 - 2.6) Ao root diameter (2D) 3.5 cm (2.1 - 3.5) Ascending Ao 3.6 cm (2.1 - 3.4) Name Value Normal Range MV E-wave Vmax 0.7 m/sec - MV deceleration time 101.3 msec - MV A-wave Vmax 0.77 m/sec - MV E:A ratio 0.93 ratio - Name Value Normal Range AV Vmax 1.4 m/sec - AV peak gradient 7.73 mmHg -
--- NOTE | 2017-03-15 15:12 | PN ---
Progress Note - Progress Note SOAP: Subjective: DOS: 03/15/17 CC: bacteremia HPI: 86 yo man with admission for DVT/PE and found to have bacteremia. Had 3 weeks of chills and sweats. No pain, rash, or diarrhea. Appetite is good. Objective: [] Vital Signs Temp 36.6 C 03/15/17 07:57 Pulse 70 03/15/17 07:57 Resp 18 03/15/17 08:00 BP 111/57 03/15/17 07:57 Pulse Ox 97 03/15/17 07:57 Intake & Output 03/14/17 03/15/17 03/15/17 18:59 06:59 18:59 Intake Total 854 0 0 Balance 854 0 0 Intake: IV Fluids 0 Rochephin 0 IVPB 60 Rochephin 60 Heparin 84 Oral 710 0 0 Other: Estimated Void Medium Large Medium # Bowel Movements 1 0 0 Estimated Stool Amount Large # Voids 1 2 Gen:Awake, no distress HEENT:PERRL, MMM Neck:Supple Heart:RRR no murmur Lungs:CTA BL Abd:+BS NTND soft Skin: eccymoses BL arms MSK: no spine tenderness, no joint tenderness Laboratory Results - last 24 hr 03/14/17 03/15/17 03/15/17 14:45 06:16 06:16 WBC 4.8 RBC 3.21 L Hgb 10.0 L Hct 30 L MCV 93 MCH 31 MCHC 34 RDW 16 H Plt Count 216 MPV 7 L Neut % (Auto) 59.4 Lymph % (Auto) 24.4 L [place] % (Auto) 9.4 H Eos % (Auto) 5.8 Baso % (Auto) 1.0 Absolute Neuts (auto) 2.8 Absolute Lymphs (auto) 1.2 Absolute Monos (auto) 0.4 Absolute Eos (auto) 0.3 Absolute Basos (auto) 0.1 Absolute Nucleated RBC 0 Nucleated RBC % 0 INR (Anticoag Therapy) 3.99 H Sodium Potassium Chloride Carbon Dioxide Anion Gap BUN Creatinine Est GFR ( Amer) Est GFR (Non-Af Amer) BUN/Creatinine Ratio Glucose Calcium C-Reactive Protein Ur Random Sodium 30 03/15/17 06:16 WBC RBC Hgb Hct MCV MCH MCHC RDW Plt Count MPV Neut % (Auto) Lymph % (Auto) [place] % (Auto) Eos % (Auto) Baso % (Auto) Absolute Neuts (auto) Absolute Lymphs (auto) Absolute Monos (auto) Absolute Eos (auto) Absolute Basos (auto) Absolute Nucleated RBC Nucleated RBC % INR (Anticoag Therapy) Sodium 129 L Potassium 4.9 Chloride 99 L Carbon Dioxide 28 Anion Gap 2 BUN 18 Creatinine 1.15 Est GFR ( Amer) 77.9 Est GFR (Non-Af Amer) 60.6 BUN/Creatinine Ratio 15.7 Glucose 98 Calcium 8.1 L C-Reactive Protein 86.45 H Ur Random Sodium FER no vegetation Assessment: 1. Klebsiella bacteremia, CT Abd/pelvis negative, FER negative; no Klebsiella in urine; no focal signs/symptoms, doubt cardiac, device infection 2. elevated CRP 3. presence of pacemaker and Watchman 4. DVT/PE 5. anemia Plan: 1. continue ceftriaxone 1 gm IV daily day 04/11 and then PO antibiotics to finish his course
[2017-03-16 05:25] LABS: Hematocrit 29 % (42-52); Hemoglobin 9.9 g/dl (14.0-18.0); Mean Corpuscular HGB Conc 34 g/dl (31-36); Mean Corpuscular Hemoglobin 32 pg (27-31); Mean Corpuscular Volume 94 fL (80-94); Mean Platelet Volume 7 um3 (7.4-10.4); Red Blood Count 3.13 10^6/ul (4.0-5.4); Red Cell Distribution Width 16 % (10.5-15); White Blood Count 5.5 10^3/ul (3.5-10.8)
[2017-03-16 05:44] LABS: C Reactive Protein 87.61 mg/L (< 5.00); EGFR African American 74.2 (>60); EGFR Non-African American 57.7 (>60); Potassium 4.6 mmol/L (3.5-5.0)
[2017-03-16] MEDS: Sucralfate TAB* 1 GM PO SCH (05:54)
[2017-03-16] MEDS: Atorvastatin* 20 MG TAB PO SCH (08:16)
[2017-03-16] MEDS: Carbidopa/Levodop 25/100 MG TAB(*) PO SCH ×3 (08:16→23:04)
[2017-03-16] MEDS: Calcium Carbonate TAB* 1250 MG (CALCIUM 500 MG) PO SCH ×2 (08:16→23:04)
[2017-03-16] MEDS: Potassium Chlor TAB* 20 MEQ TAB.ER PO SCH ×2 (08:16→23:04)
[2017-03-16] MEDS: Omeprazole CAP* 20 MG PO SCH ×2 (08:16→23:04)
[2017-03-16] MEDS: Docusate CAP* 100 MG PO SCH ×2 (08:16→23:04)
[2017-03-16] MEDS: Ferrous Sulfate TAB* 325 MG PO SCH (08:16)
[2017-03-16] MEDS: Vitamin THERAPEUTIC TAB PO SCH (08:17)
[2017-03-16] MEDS: Atenolol TAB* 25 MG PO SCH (08:17)
[2017-03-16] MEDS: Polyethylene Glycol 3350* 17 GM PACKET PO SCH (08:19)
[2017-03-16] MEDS: cefTRIAXone VIAL(*) 1,000 MG in NS 0.9% 50 ML* 50 ML IVPB SCH (11:41)
[2017-03-17] MEDS: Sucralfate TAB* 1 GM PO SCH (05:55)
[2017-03-17 06:18] LABS: Hematocrit 29 % (42-52); Hemoglobin 9.7 g/dl (14.0-18.0); Mean Corpuscular HGB Conc 33 g/dl (31-36); Mean Corpuscular Hemoglobin 31 pg (27-31); Mean Corpuscular Volume 94 fL (80-94); Mean Platelet Volume 6 um3 (7.4-10.4); Red Blood Count 3.14 10^6/ul (4.0-5.4); Red Cell Distribution Width 16 % (10.5-15); White Blood Count 5.4 10^3/ul (3.5-10.8)
[2017-03-17 06:34] LABS: BUN/Creatinine Ratio 16.8 (8-20); C Reactive Protein 86.18 mg/L (< 5.00); Calcium 8.1 mg/dL (8.6-10.3); EGFR African American 79.5 (>60); EGFR Non-African American 61.8 (>60); Potassium 5.1 mmol/L (3.5-5.0)
[2017-03-17] MEDS: Atenolol TAB* 25 MG PO SCH (09:38)
[2017-03-17] MEDS: Vitamin THERAPEUTIC TAB PO SCH (09:39)
[2017-03-17] MEDS: Omeprazole CAP* 20 MG PO SCH ×2 (09:39→21:37)
[2017-03-17] MEDS: Docusate CAP* 100 MG PO SCH ×2 (09:39→21:39)
[2017-03-17] MEDS: Atorvastatin* 20 MG TAB PO SCH (09:39)
[2017-03-17] MEDS: Carbidopa/Levodop 25/100 MG TAB(*) PO SCH ×3 (09:40→21:37)
[2017-03-17] MEDS: Polyethylene Glycol 3350* 17 GM PACKET PO SCH ×2 (09:40→11:49)
[2017-03-17] MEDS: Potassium Chlor TAB* 20 MEQ TAB.ER PO SCH ×2 (09:40→21:37)
[2017-03-17] MEDS: Calcium Carbonate TAB* 1250 MG (CALCIUM 500 MG) PO SCH ×2 (09:40→21:37)
[2017-03-17] MEDS ORDERED: Warfarin TAB(*) 4 MG PO ONE (11:00)
[2017-03-17] MEDS: cefTRIAXone VIAL(*) 1,000 MG in NS 0.9% 50 ML* 50 ML IVPB SCH (11:50)
--- NOTE | 2017-03-17 16:45 | CONS ---
CONSULTATION REPORT: DATE OF CONSULT: DATE OF DICTATION: 03/17/17 PATIENT OF: Caitlyn Mitchell MD. HISTORY OF PRESENT ILLNESS: This is an 86-year-old man whom I am asked to evaluate for his gait disturbance. He notes that he has chronically used a walker for many months including down in [place], and in the past few months he needed to not really have a walker, but be assisted while he walked. In the past 3 to 4 weeks he has not been able walk at all according to the patient. He has been hospitalized since 03/10/17 with a diagnosis of weakness. He notes the weakness is in his legs and not in his arms. He says that he has had a change in urination, but it is hard for him to elaborate. He notes no numbness , no back or neck pain and no headache. He had came in with some anorexia and he had extensive DVTs when he presented. Of note, he has a pacemaker for sick sinus syndrome. He has metastatic melanoma. He has paroxysmal atrial fibrillation, hypertension, gout, monoclonal gammopathy, BPH, GERD, nephrolithiasis, lumbosacral disk disease, diverticulosis, anemia, Robyn's thyroiditis, colonic polyps, hyperlipidemia, renal cysts, bladder stones. He has a history of Parkinson's disease. PAST SURGICAL HISTORY: He has had cataract surgery, tonsillectomy, appendectomy , TURP for bladder calculus removal, left arm surgery and sentinel node biopsy. MEDICINES: On admission include: 1. Tafinlar 150 mg daily. 2. Potassium chloride 20 mEq daily. 3. Protonix 40 mg twice daily. 4. Mekinist 2 mg daily. 5. Lasix 20 mg daily. 6. Ferrous sulfate 325 mg t.i.d. 7. Crestor 10 mg daily. 8. Colace 100 mg twice daily. 9. Carbidopa/levodopa 3 tabs 3 times a day. 10. Carafate 1 g daily. 11. Calcium 60 mg twice a day. 12. Aspirin 81 mg daily. 13. Amiodarone 200 mg twice daily. These were the medicines he was on at home. Medicines that he is currently on include: 1. Atenolol 25 mg daily. 2. Lipitor 20 mg daily. 3. Sinemet 25/100 three t.i.d. 4. Ceftriaxone IV. 5. Colace 100 mg b.i.d. 6. Prilosec 20 mg b.i.d. 7. Zofran 4 mg IV q.4 hours p.r.n. nausea. 8. Coumadin. 9. Carafate. ALLERGIES: He has allergy to BEE STINGS. FAMILY HISTORY: Significant for diabetes, thyroid disease and heart disease. SOCIAL HISTORY: Does not smoke, drink or use drugs. REVIEW OF SYSTEMS: Negative in 14 spheres other than the HPI. PHYSICAL EXAMINATION: On exam, temperature is 98.2, pulse 69, respirations 18, blood pressure 118/63. He is alert and oriented with normal speech and comprehension. A slightly poor historian. His voice was soft which is chronic. Cranial nerves II through XII are intact. Disc on the right was sharp. His strength in his arms were just trace weak, but he had atrophy of his intrinsic hand muscles. Strength in legs was 4-/5. He had decreased position sense in his feet, but not in his hands. He had intact to light touch in his legs. Chest: Clear. Cardiovascular: Irregular rate. Abdomen: Soft with positive bowel sounds. He had no tremor, but had some bradykinesia. He also had 3+ reflexes at the left knee with trace at the right knee with trace ankle jerks, equivocal to downgoing toes. He had 1+ DTR's in the arms. DIAGNOSTIC STUDIES/LAB DATA: He has had CT scan of his abdomen and pelvis which Dr. Mitchell had a look with the radiologist and did not apparently see any major findings. His blood work showed INR of 2.0, PTT of 40.6, white count of 5.4, hematocrit of 29, platelets of 204,000. Has sodium of 129, potassium of 5.1, chloride of 97, bicarbonate 29. Normal rest of the CMP other than glucose of 106, calcium 8.1. IGM was 8. UA; 1+ bacteremia. IMPRESSION: Mr. Robert Gastelum has longstanding gait disturbance with clear weakness in his legs, but not his arms. 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 He says he has been in roughly the same state for the past few weeks. He is unclear even if we found something, whether it would be reversible at this point. We see intrinsic atrophy of his hand muscles and a paraparesis, the question is whether he has a cervical myelopathy and we are going to get a CT scan of his cervical and thoracic spine. If that is negative, we can check a lumbar CT scan. We cannot get an MRI scan because of his pacemaker. If he has significant myelopathy issues whether he would be a surgical candidate or not, if we do not find answers with these studies, EMG may or may not be of use. Thank you for sharing his case. [id number]/CPS #: [id number] MARLEE
--- NOTE | 2017-03-17 17:07 | RAD ---
HISTORY: Lower extremity weakness COMPARISONS: None TECHNIQUE: Multiple contiguous axial CT scans were obtained of the cervical spine without intravenous contrast, with coronal and sagittal multiplanar reformations. FINDINGS: BRAIN: The visualized brain is unremarkable CENTRAL CANAL: Evaluation of the central canal is limited on CT technique; however, there is no obvious canalicular mass or epidural hemorrhage. ALIGNMENT: The alignment is normal, without subluxation or dislocation. VERTEBRAL BODIES: There is diffuse osteopenia. Is multilevel anterolateral marginal osteophyte formation JOINTS: There is osteoarthritis of the uncovertebral and facet joints and atlantoaxial articulation MUSCULATURE: Unremarkable INTERVERTEBRAL DISCS: There is diffuse loss of intervertebral disc height. AXIAL IMAGES: C2-C3: There is bilateral uncovertebral and facet hypertrophy. There is moderate right neuroforaminal narrowing. There is no osseous central canal stenosis C3-C4: There is bilateral uncovertebral and facet hypertrophy. There is severe left neuroforaminal narrowing. There is no osseous central canal stenosis. C4-C5: There is bilateral uncovertebral and facet hypertrophy. There is severe bilateral neural foramina narrowing. There is no osseous central canal stenosis C5-C6: There is bilateral uncovertebral and facet hypertrophy. There is severe bilateral neuroforaminal narrowing. There is no osseous central canal stenosis. C6-C7: There is bilateral uncovertebral and facet hypertrophy. There is severe bilateral neuroforaminal narrowing. There is no significant osseous central canal stenosis. C7-T1: There is bilateral uncovertebral facet hypertrophy. There is mild bilateral neural foraminal narrowing. There is no significant osseous central canal stenosis. SOFT TISSUES: The visualized soft tissues of the neck are unremarkable. The prevertebral fat stripe is preserved. OTHER: None. IMPRESSION: 1. OSTEOPENIA. 2. DEGENERATIVE DISC DISEASE AND OSTEOARTHRITIS. 3. THERE IS MULTILEVEL NEURAL FORAMINAL NARROWING DESCRIBED ABOVE. THERE IS NO OSSEOUS CENTRAL CANAL STENOSIS.
--- NOTE | 2017-03-17 17:16 | RAD ---
HISTORY: Lower extremity weakness COMPARISONS: CT of the chest dated July 18, 2014 TECHNIQUE: Multiple contiguous axial CT scans were obtained of the thoracic spine without intravenous contrast, with coronal and sagittal multiplanar reformations. FINDINGS: SPINAL CANAL: Evaluation of the central canal is limited on CT technique; however, there is no obvious canalicular mass or epidural hemorrhage. ALIGNMENT: The alignment is normal. VERTEBRAL BODIES: There is diffuse osteopenia. There is multilevel anterolateral marginal osteophyte formation. Vertebral bodies are preserved in height. JOINTS: There is mild osteoarthritis of the costovertebral and facet joints. MUSCULATURE: Unremarkable INTERVERTEBRAL DISCS: There is diffuse loss of intervertebral disc height throughout the spine. AXIAL IMAGES: There is no osseous central canal stenosis or neuroforaminal narrowing. SOFT TISSUES: There are small bilateral pleural effusions OTHER: None IMPRESSION: 1. OSTEOPENIA. 2. DEGENERATIVE DISC DISEASE AND OSTEOARTHRITIS. 3. NO SIGNIFICANT OSSEOUS NEURAL FORAMINAL AREA OR CENTRAL CANAL STENOSIS. 4. SMALL BILATERAL PLEURAL EFFUSIONS
[2017-03-18 05:39] LABS: Hematocrit 27 % (42-52); Hemoglobin 9.2 g/dl (14.0-18.0); Mean Corpuscular HGB Conc 34 g/dl (31-36); Mean Corpuscular Hemoglobin 31 pg (27-31); Mean Corpuscular Volume 94 fL (80-94); Mean Platelet Volume 6 um3 (7.4-10.4); Red Blood Count 2.93 10^6/ul (4.0-5.4); Red Cell Distribution Width 16 % (10.5-15); White Blood Count 4.7 10^3/ul (3.5-10.8)
[2017-03-18] MEDS: Sucralfate TAB* 1 GM PO SCH (06:15)
[2017-03-18] MEDS: Atenolol TAB* 25 MG PO SCH (07:40)
[2017-03-18] MEDS: Carbidopa/Levodop 25/100 MG TAB(*) PO SCH ×3 (07:40→20:17)
[2017-03-18] MEDS: Potassium Chlor TAB* 20 MEQ TAB.ER PO SCH ×2 (07:41→20:17)
[2017-03-18] MEDS: Vitamin THERAPEUTIC TAB PO SCH (07:41)
[2017-03-18] MEDS: Calcium Carbonate TAB* 1250 MG (CALCIUM 500 MG) PO SCH ×2 (07:41→20:16)
[2017-03-18] MEDS: Ferrous Sulfate TAB* 325 MG PO SCH (07:41)
[2017-03-18] MEDS: Atorvastatin* 20 MG TAB PO SCH (07:41)
[2017-03-18] MEDS: Omeprazole CAP* 20 MG PO SCH ×2 (07:41→20:17)
[2017-03-18] MEDS: Polyethylene Glycol 3350* 17 GM PACKET PO SCH ×2 (07:42→17:06)
[2017-03-18] MEDS: Docusate CAP* 100 MG PO SCH ×2 (07:42→20:16)
--- NOTE | 2017-03-18 11:27 | PN ---
NEUROLOGICAL PROGRESS NOTE: DATE OF CONSULT: HISTORY: He continues to have his difficulty, inability to walk. MEDICATIONS: Continue to be his atenolol, Lipitor, Sinemet, ceftriaxone, Colace , Prilosec, Zofran, Coumadin, and Carafate. PHYSICAL EXAMINATION: He has no further neurological additional symptoms. Temperature 98.1, pulse 85, respirations 18, blood pressure 128/57. He is alert and oriented. He has a soft voice. Cranial nerves are unchanged. His motor exam is unchanged and he has downgoing 2 equivocal toes. Chest: Clear. Cardiovascular: Regular rate and rhythm. Abdomen: Soft with positive bowel sounds. DIAGNOSTIC STUDIES/LAB DATA: Reviewed his CT of his cervical and thoracic spine and he has multilevel foraminal narrowing that is severe, but no clear evidence for myelopathy or spinal cord involvement from the disk. His thoracic spine also showed disk disease and osteoarthritis, but no spinal cord issues. IMPRESSION AND PLAN: I discussed with him and his that given the longstanding nature of his symptoms, there may not be any specific treatment. I discussed with him that his intrinsic atrophy of hand muscles are likely due to his multilevel severe neuroforaminal disease secondary to his disk disease and osteoarthritis, but this is multilevel and it would be unlikely that cervical spine surgery would significantly improve his hands and it would be a surgery. It does not appear that fixing or approaching his neck surgically would have an impact on his legs. I discussed that we could do a CT scan of his head to make sure that there is no falcine mass and we can look at his lumbar CT specifically to make sure there is no severe lumbar stenosis, but it is unlikely we would find anything that would lead to specific treatment. It is likely that he would have severe lumbosacral disk disease and osteoarthritis , but it is likely to be multilevel without any specific lesion that would improve his situation with surgery. He, however, wants to proceed with test as well as an EMG nerve conduction study, which we will do today. He has had B12, folate and thyroid function tests done as well as SPEP, pending. [id number]/[facility] #: [id number] MARLEE
[2017-03-18] MEDS: cefTRIAXone VIAL(*) 1,000 MG in NS 0.9% 50 ML* 50 ML IVPB SCH (11:43)
--- NOTE | 2017-03-18 14:39 | RAD ---
HISTORY: Weakness COMPARISONS: February 25, 2016 TECHNIQUE: Multiple contiguous axial CT scans were obtained of the head without intravenous contrast. FINDINGS: The study is limited by patient motion artifact. HEMORRHAGE/INFARCT: There is no hemorrhage or acute infarct. MASSES/SHIFT: There is no mass or shift. EXTRA-AXIAL SPACES: There are no extra-axial fluid collections. SULCI AND VENTRICLES: There is diffuse and proportional enlargement of the sulci and ventricles. CEREBRUM: There are no focal parenchymal abnormalities. BRAINSTEM: There are no focal parenchymal abnormalities. CEREBELLUM: There are no focal parenchymal abnormalities. VESSELS: The vessels are grossly normal. PARANASAL SINUSES: The paranasal sinuses are clear. ORBITS: The orbits are unremarkable. BONES AND SOFT TISSUE: No bone or soft tissue abnormalities are noted. OTHER: None IMPRESSION: NO ACUTE INTRACRANIAL PATHOLOGY.
--- NOTE | 2017-03-18 14:57 | RAD ---
HISTORY: Weakness COMPARISONS: CT dated July 18, 2014 TECHNIQUE: Multiple contiguous axial CT scans were obtained of the lumbar spine without intravenous contrast, with coronal and sagittal multiplanar reformations. FINDINGS: SPINAL CANAL: Evaluation of the central canal is limited on CT technique; however, there is no obvious canalicular mass or epidural hemorrhage. ALIGNMENT: There is a mild scoliotic curvature of the spine VERTEBRAL BODIES: There is diffuse osteopenia. Vertebral bodies are preserved in height. There is multilevel anterolateral marginal osteophyte formation. JOINTS: There is extensive diffuse facet osteoarthritic change MUSCULATURE: Unremarkable INTERVERTEBRAL DISCS: There is diffuse loss of intervertebral disc height throughout the spine. AXIAL IMAGES: T10-T11: There is no osseous neural foraminal narrowing or central canal stenosis. T11-T12: There is no osseous neural foraminal area or central canal stenosis. T12-L1: There is no osseous neural foraminal narrowing or central canal stenosis. L1-L2: There is no osseous neural foraminal narrowing or central canal stenosis. L2-L3: There is a posterior osteophyte versus calcific disc protrusion centrally measuring 0.3 cm in depth. There is mild bilateral neuroforaminal narrowing. There is no osseous central canal stenosis. L3-L4: There is a small posterior osteophyte centrally versus calcified disc protrusion. There is bilateral facet hypertrophy. There is mild bilateral neural foraminal narrowing. There is no significant central canal stenosis. L4-L5: There is exuberant bilateral facet hypertrophy. There is moderate bilateral neural foraminal narrowing. There is moderate narrowing of the central canal. L5-S1: There is bilateral facet hypertrophy. There is marginal osteophyte formation at the neural foramina bilaterally. There is severe left and moderate right neural foraminal narrowing. There is no significant central canal stenosis. SOFT TISSUES: The visualized soft tissues of the abdomen are unremarkable. There is a small right pleural effusion. OTHER: None IMPRESSION: 1. OSTEOPENIA. 2. DEGENERATIVE DISC DISEASE AND OSTEOARTHRITIS. 3. THERE IS MULTILEVEL NEURAL FORAMINAL NARROWING DESCRIBED ABOVE. 4. THERE IS MODERATE NARROWING OF THE CENTRAL CANAL AT L4-L5
[2017-03-18] MEDS ORDERED: Warfarin TAB(*) 4 MG PO ONE (17:00)
[2017-03-19] MEDS: Sucralfate TAB* 1 GM PO SCH (05:37)
[2017-03-19 08:01] LABS: Hematocrit 29 % (42-52); Hemoglobin 9.6 g/dl (14.0-18.0); Mean Corpuscular HGB Conc 33 g/dl (31-36); Mean Corpuscular Hemoglobin 31 pg (27-31); Mean Corpuscular Volume 93 fL (80-94); Mean Platelet Volume 7 um3 (7.4-10.4); Red Blood Count 3.09 10^6/ul (4.0-5.4); Red Cell Distribution Width 16 % (10.5-15); White Blood Count 5.3 10^3/ul (3.5-10.8)
[2017-03-19] MEDS: Vitamin THERAPEUTIC TAB PO SCH (08:07)
[2017-03-19] MEDS: Atenolol TAB* 25 MG PO SCH (08:07)
[2017-03-19] MEDS: Carbidopa/Levodop 25/100 MG TAB(*) PO SCH ×3 (08:07→21:04)
[2017-03-19] MEDS: Docusate CAP* 100 MG PO SCH ×2 (08:07→21:04)
[2017-03-19] MEDS: Atorvastatin* 20 MG TAB PO SCH (08:07)
[2017-03-19] MEDS: Calcium Carbonate TAB* 1250 MG (CALCIUM 500 MG) PO SCH ×2 (08:07→21:04)
[2017-03-19] MEDS: Omeprazole CAP* 20 MG PO SCH ×2 (08:07→21:04)
[2017-03-19 08:16] LABS: BUN/Creatinine Ratio 15.2 (8-20); Calcium 8.2 mg/dL (8.6-10.3); EGFR African American 86.5 (>60); EGFR Non-African American 67.3 (>60)
[2017-03-19] MEDS: Polyethylene Glycol 3350* 17 GM PACKET PO SCH (08:19)
[2017-03-19] MEDS: Potassium Chlor TAB* 20 MEQ TAB.ER PO SCH (08:20)
[2017-03-19] MEDS: cefTRIAXone VIAL(*) 1,000 MG in NS 0.9% 50 ML* 50 ML IVPB SCH (12:12)
[2017-03-19 13:41] LABS: Albumin 2.1 g/dL (3.2-5.2); Globulin 3.9 g/dL (2-4); Total Bilirubin 0.4 mg/dL (0.2-1.0)
--- NOTE | 2017-03-19 15:25 | RAD ---
INDICATION: Right rib pain COMPARISON: None. TECHNIQUE: 4 views of the right ribs were obtained. FINDINGS: No fracture or significant focal osseous abnormality is seen. No pneumothorax is apparent. Limited views demonstrate grossly clear lungs. IMPRESSION: No radiographically apparent displaced rib fracture or pneumothorax. If the patient's symptoms persist, follow-up imaging is recommended.
[2017-03-19] MEDS ORDERED: Warfarin TAB(*) 4 MG PO ONE (17:00)
[2017-03-20] MEDS: Sucralfate TAB* 1 GM PO SCH (05:30)
[2017-03-20 07:10] LABS: Hematocrit 28 % (42-52); Mean Corpuscular HGB Conc 33 g/dl (31-36); Mean Corpuscular Hemoglobin 31 pg (27-31); Mean Corpuscular Volume 96 fL (80-94); Mean Platelet Volume 6 um3 (7.4-10.4); Red Blood Count 2.89 10^6/ul (4.0-5.4); Red Cell Distribution Width 17 % (10.5-15); White Blood Count 5.1 10^3/ul (3.5-10.8)
[2017-03-20 07:25] LABS: Albumin 1.9 g/dL (3.2-5.2); C Reactive Protein 82.33 mg/L (< 5.00); Calcium 7.8 mg/dL (8.6-10.3); EGFR African American 85.6 (>60); EGFR Non-African American 66.6 (>60); Globulin 3.5 g/dL (2-4); Potassium 4.3 mmol/L (3.5-5.0); Total Bilirubin 0.4 mg/dL (0.2-1.0); Total Protein 5.4 g/dL (6.4-8.9)
[2017-03-20 07:52] VITALS: BP 102/42
[2017-03-20] MEDS: Omeprazole CAP* 20 MG PO SCH (08:10)
[2017-03-20] MEDS: Calcium Carbonate TAB* 1250 MG (CALCIUM 500 MG) PO SCH (08:11)
[2017-03-20] MEDS: Atenolol TAB* 25 MG PO SCH (08:11)
[2017-03-20] MEDS: Ferrous Sulfate TAB* 325 MG PO SCH (08:11)
[2017-03-20] MEDS: Atorvastatin* 20 MG TAB PO SCH (08:11)
[2017-03-20] MEDS: Carbidopa/Levodop 25/100 MG TAB(*) PO SCH (08:11)
[2017-03-20] MEDS: Vitamin THERAPEUTIC TAB PO SCH (08:11)
[2017-03-20] MEDS: Docusate CAP* 100 MG PO SCH (08:11)
[2017-03-20] MEDS: Polyethylene Glycol 3350* 17 GM PACKET PO SCH (08:12)
--- NOTE | 2017-03-20 13:11 | DS ---
DISCHARGE SUMMARY: DATE OF ADMISSION: 03/09/17 DATE OF DISCHARGE: 03/20/17 DISCHARGE DIAGNOSES: 1. Pulmonary emboli. 2. Bilateral deep venous thrombosis of the lower extremities. 3. Klebsiella bacteremia. 4. Status post hip arthroplasty. 5. Punctate right renal stone. 6. Colonic diverticulosis. 7. Umbilical hernia containing fat. 8. Lower extremity weakness. 9. 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 10. Lumbar spinal stenosis. 11. Axonal neuropathy. 12. Low IgM level. 13. Monoclonal gammopathy of uncertain significance. 14. Metastatic melanoma. 15. History of paroxysmal atrial fibrillation. 16. Sick sinus syndrome. 17. Pacemaker. 18. Status post insertion of Watchman device. 19. Mild global hypokinesis on echocardiogram. 20. Patent foramen ovale and atrial septal aneurysm on echo. 21. Moderate aortic insufficiency and mitral regurgitation. 22. Left atrial enlargement. 23. History of gout. 24. History of benign prostatic hyperplasia. 25. Anemia of chronic disease. 26. History of hypertension. 27. 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 28. Aortic sclerosis. 29. History of upper gastrointestinal bleed with EGD 01/29/17 showing duodenal ulcer, gastric erosions, esophagitis, hiatus hernia. H. pylori negative. 30. Acute renal failure due to prerenal causes. 31. Possible urinary tract infection with Aerococcus viridans. 32. Guaiac positive stools. 33. History of Staphylococcus aureus bacteremia in 2013. HISTORY: Robert Gastelum is an 86-year-old man admitted with hypotension and weakness, found to have DVT and pulmonary emboli as well as Klebsiella bacteremia. Please see the dictated admission note for details of the present illness, past medical history, family history, social and personal history, review of systems, and physical examination. LABORATORY DATA: CBC on admission, WBC 7.3, H and H 9.6/29, MCV 94, PLT 227K. Subsequent white count ranged between 4.5 and 7.9. H and H went down as low as 22, on March 11 hematocrit was 28 to 31 post transfusion. CBC prior to discharge on March 20, WBC 5.1, H and H 9/, MCV 96, PLT 197K. Initial INR 1.06, PTT 31.7, D- dimer greater than 1050. Initially, patient was on IV heparin with PTT is being monitored. Subsequent on warfarin, INR went up as high as 4.05. With adjustment of dose, INR currently 2.74. Chemistries on admission, sodium 127, potassium 3.6, chloride 91, CO2 30, BUN and creatinine 37 /2.03, glucose 151, calcium 8.2, alk phos 234. Otherwise, comprehensive metabolic panel abnormal for total protein/albumin 6.1/2.1. Lipase 141. Lactic acid initially was 2.1. Other chemistries, magnesiums were 1.8 on March 11, 2 on March 19. Ferritin was elevated at 438.6. Iron 28, TIBC 105, percent saturation 27%. LDH normal at 209. CK normal at 84. CK-MB normal 2.8. Troponin normal at 0.03. CRPs were followed and started at 150.51, came down as low as 73.33 on March 18, was 82.33 on March 20. BNP was 167 on March 09, 297 on March 11. B12 normal at 878. Folate normal at 11.92. TSH normal at 3.51. M spike was 1 which is consistent with previous level in 2013. Quantitative immunoglobulin showed low IgM level at 8. Chemistries prior to discharge on March 20, sodium 129, potassium 4.3, chloride 99, CO2 27, BUN and creatinine 17/1.06, glucose 111. Rest of the comprehensive metabolic panel was abnormal for calcium 7.8, total protein/albumin 5.4/1.9. Alk phos 146. Urinalysis on March 09, yellow, cloudy, specific gravity 1.01, pH 5. Dipstick positive for ketones trace, blood 1+, bacteria 1+. Urine sodium on March 14 was 30, osmolality was 413. An urine culture on March 09 grew out Aerococcus viridans 75,000 to 100,000 and normal babs 50,000 to 75,000. Blood cultures x2 on admission showed Klebsiella pneumoniae resistant to ampicillin, sensitive to all other antibiotics tested except for intermediate to nitrofurantoin. Stool for occult blood was positive on March 11 and March 12. Blood cultures x2 on March 15, were no growth x5 days. A blood type was AB positive. Transfusion of 2 units was done on March 11. IMAGING: Chest x-ray on March 09 showed no evidence for acute disease. Venous Doppler study on March 09 showed bilateral deep venous thrombosis involving the entire right lower extremity deep venous system and the left common femoral and profunda femoral veins with possible proximal extension on both sides into the pelvis. Lung scan V/Q on March 10 showed significant abnormality with multiple subsegmental perfusion defects without corresponding ventilation defects consistent with intermediate to high probability for pulmonary embolism. Abdomen and pelvis CT 03/11/17 showed small bilateral pleural effusions, multiple diverticula of the sigmoid colon, 0.2 cm right renal calyceal stone, multiple simple renal cysts bilaterally, right hip prosthesis, calcific atherosclerotic disease of the abdominal aorta, small fat containing umbilical hernia, degenerative changes along the spine. Cervical spine CT showed degenerative disk changes, neural foraminal narrowing. Thoracic spine CT showed osteopenia, degenerative disk disease and osteoarthritis, no spinal stenosis, small bilateral pleural effusions. Lumbar spine CT showed osteopenia , degenerative disk disease and osteoarthritis, multiple neural foraminal narrowing, moderate narrowing of the central canal at L4-5. Brain CT on March 18 showed no acute intracranial pathology. Rib x-rays on March 19 showed no fracture. EKG on March 09 showed paced rhythm. Transthoracic echocardiogram on March 10 showed normal LV function 55% to 60%, abnormal ventricular septal wall motion consistent with right ventricular pacemaker, [id number] left atrial dilatation, [id number] right atrial dilatation, mild aortic sclerosis, mild aortic regurgitation, mitral valve leaflets moderately thickened with mild mitral regurgitation, mild thickening of the tricuspid valve leaflets. Transesophageal echocardiogram 03/15/17 showed Watchman insert, mild global hypokinesis of the left ventricle, EF 40% to 45%, patent foramen ovale, atrial septal aneurysm, mild thickening of the aortic valves with moderate aortic regurgitation, no vegetations. CONSULTATIONS: 1. Oncology, Dr. Antoine felt that the patient had multiple medical problems including metastatic melanoma, BRAF positive and stable for 3 years on dabrafenib (BRAF inhibitor) and trametinib(MEK inhibitor). He had doses reduced in December for fatigue and feeling dizzy. Recent PET scan in [place] had shown stable disease. He looked more frail to Dr. Antoine who had not seen him since 2013. He felt that the combination of these medications had significant risk of DVT and pulmonary emboli (7% in studies). He felt that he should have these medications held for 6 weeks until he is stable on Coumadin. He felt that he would need long-term anticoagulation while on cancer therapy, would need to reweigh risk versus risk of falls. He felt that Coumadin was the optimal long-term agent with Lovenox modified for renal function as another option. He did not recommend direct oral thrombin inhibitors for him. 2. Consultation Cardiology, Dr. Escobar felt that his recent upper GI bleed had been while on aspirin and Plavix. He thought that his current change in symptoms were due to the pulmonary emboli and sepsis. He felt that amiodarone which had been prescribed in [place] should be stopped and would remain in his system for months regardless. He felt that he was asymptomatic with his AFib previously. He recommended continuing atenolol. He recommended stopping aspirin. He did not feel that an IVC filter was mandatory but could be considered. He felt that he should followup with his pharmacy picking tech, Dr. Casanova, post discharge. 3. Infectious disease consultation, Dr. Wiggins, felt that the patient had Klebsiella bacteremia with 2 to 3 weeks of chills without any local signs or symptoms. He noted previous history of Staph aureus bacteremia in 2013. He agreed with cefepime 1 g IV every 12 hours, dosed for his current GFR. He recommended repeating blood cultures which were done and were negative. He ordered the CT of the abdomen and pelvis (see above). On followup consultation , Dr. Wiggins felt that he could be changed from cefepime to ceftriaxone after the blood culture sensitivity results were available. He recommended the FER which was done. He subsequently recommended 10 days of IV ceftriaxone and then p.o. antibiotics to finish his course. 4. Neurology consultation, Dr. Jacob, 03/17/17. He felt that the patient had longstanding gait disturbances with clear weakness in the legs but not arms. He was not sure that even if we found something whether it would be reversible at this point. He did note some intrinsic atrophy of the hand muscles and questions cervical myelopathy. He recommended CT of the spine. Followup note from Dr. Jacob and conversation with him, he felt that he had atrophy, weakness also due to axonal neuropathy. He did an EMG and nerve conduction study on him which is pending at the time of dictation. He said he did not have cervical myelopathy. HOSPITAL COURSE: The patient was initially admitted and started on anticoagulation for DVT and subsequently pulmonary emboli. He was transitioned from heparin to Warfarin and with elevated INRs and then therapeutic INRs. He developed a fever after he was admitted and was started on initially ceftriaxone and then cefepime to cover pseudomonas and then switch back to ceftriaxone after the results of his cultures were known (see above). There was no clear source of the Klebsiella on workup. It was decided that he would be treated for 10 days IV and order another 4 days of p.o. antibiotics. He had consultations as noted above. He developed an anemia for which he was transfused. He had been placed on iron previously. This caused constipation. It is felt that he no longer needed iron and this is being stopped. Amiodarone was stopped. He remained in paced or sinus rhythm. He initially was treated with IV fluids for low volume and this improved. He became somewhat delirious, it was felt to be due to his underlying medical problems. This improved. 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 His sodium remained stable at the time of discharge. He received physical therapy but he needed maximum assist to get out of bed. He was not eating well initially. His eating improved in the hospital. He had right lower rib cage pain since being turned in bed. This was investigated with a rib x-ray which was negative for fracture. At the time of discharge, he is feeling fairly well but discouraged that his legs are so weak. PHYSICAL EXAMINATION: He is alert. His lungs are clear. His heart is regular. His abdomen is nontender. He has an umbilical hernia. His extremities show 1+ edema on the right. No edema on the left. He has marked proximal weakness of the lower extremities. Labs as noted above. He is being discharged to [facility]. Attending physician, Dr. Chiang. FINAL DIET: Regular. ALLERGIES: None. ACTIVITY: Up with assistance. MEDICATIONS: 1. Carbidopa/levodopa 25/100 three pills t.i.d. p.o. 2. Pantoprazole 20 mg b.i.d. 3. Warfarin 4 mg daily or as directed. 4. Atenolol 25 mg daily. 5. Atorvastatin 20 mg daily. 6. Keflex 500 mg t.i.d. for 4 days. 7. Docusate 100 mg twice a day. 8. MultiVites 1 daily. 9. MiraLAX 17 g daily. He should be DNR per his previous wishes. Physical therapy is ordered. He is to have an INR, CBC, CRP, BMP on Tuesday03/22/17 and then another INR on March 25. I am available should any questions arise about Robertfiliberto Gastelum, my cell phone number is [phone]. Please call me for any questions. [id number]/[facility] #: [id number] MTDHéctor
== END 2017-03-20 11:05 | DRG 299 ==
LOC: ED 21:18 → MEDTELE 03-10 01:52 → MED 03-14 13:10
PROVIDERS: ADMIT Internal Medicine; ATTEND Internal Medicine Geriatric Medicine
PROC: 30233N1 Transfusion of Nonautologous Red Blood Cells into Peripheral Vein, Percutaneous Approach (ICD-10-PCS; 2017-03-11)
PROC: B24BZZ4 Ultrasonography of Heart with Aorta, Transesophageal (ICD-10-PCS; principal; 2017-03-15 12:15)
DX: I82.403 Acute embolism and thrombosis of unspecified deep veins of lower extremity, bilateral (principal); I26.99 Other pulmonary embolism without acute cor pulmonale; N17.9 Acute kidney failure, unspecified; G82.20 Paraplegia, unspecified; F05 Delirium due to known physiological condition; E22.2 Syndrome of inappropriate secretion of antidiuretic hormone; C43.59 Malignant melanoma of other part of trunk; I48.0 Paroxysmal atrial fibrillation; D47.2 Monoclonal gammopathy; G62.9 Polyneuropathy, unspecified; N28.1 Cyst of kidney, acquired; I10 Essential (primary) hypertension; I25.3 Aneurysm of heart; N39.0 Urinary tract infection, site not specified; R78.81 Bacteremia; Q21.1 Atrial septal defect; E78.00 Pure hypercholesterolemia, unspecified; G20 Parkinson's disease; M10.9 Gout, unspecified; N40.0 Benign prostatic hyperplasia without lower urinary tract symptoms; K21.9 Gastro-esophageal reflux disease without esophagitis; E78.5 Hyperlipidemia, unspecified; E06.3 Autoimmune thyroiditis; S80.812A Abrasion, left lower leg, initial encounter; S80.811A Abrasion, right lower leg, initial encounter; S40.811A Abrasion of right upper arm, initial encounter; W19.XXXA Unspecified fall, initial encounter; Z96.641 Presence of right artificial hip joint; N20.0 Calculus of kidney; K57.30 Diverticulosis of large intestine without perforation or abscess without bleeding; K42.9 Umbilical hernia without obstruction or gangrene; M50.30 Other cervical disc degeneration, unspecified cervical region; M51.36 Other intervertebral disc degeneration, lumbar region; M51.34 Other intervertebral disc degeneration, thoracic region; M47.892 Other spondylosis, cervical region; M47.896 Other spondylosis, lumbar region; M47.894 Other spondylosis, thoracic region; M48.06 Spinal stenosis, lumbar region; I08.0 Rheumatic disorders of both mitral and aortic valves; D63.8 Anemia in other chronic diseases classified elsewhere; I70.0 Atherosclerosis of aorta; K44.9 Diaphragmatic hernia without obstruction or gangrene; Z16.11 Resistance to penicillins; B96.1 Klebsiella pneumoniae [K. pneumoniae] as the cause of diseases classified elsewhere; B96.89 Other specified bacterial agents as the cause of diseases classified elsewhere; K59.03 Drug induced constipation; T45.4X5A Adverse effect of iron and its compounds, initial encounter; Z79.01 Long term (current) use of anticoagulants; Z95.0 Presence of cardiac pacemaker; Z87.442 Personal history of urinary calculi; Z86.010 Personal history of colon polyps; Z98.42 Cataract extraction status, left eye; Z98.41 Cataract extraction status, right eye; Z91.030 Bee allergy status; Z82.49 Family history of ischemic heart disease and other diseases of the circulatory system; Z83.3 Family history of diabetes mellitus; Z83.49 Family history of other endocrine, nutritional and metabolic diseases; Y92.9 Unspecified place or not applicable; Z86.19 Personal history of other infectious and parasitic diseases
CPT/HCPCS: 36415; 70450; 71010; 72125; 72128; 72131; 74176; 78582; 80048; 80053; 81003; 81015; 82270; 82272; 82306; 82550; 82553; 82607; 82728; 82746; 82784; 83540; 83550; 83605; 83615; 83690; 83735; 83880; 83935; 84100; 84155; 84165; 84300; 84443; 84484; 84520; 85025; 85027; 85045; 85379; 85610; 85730; 86140; 86850; 86900; 86901; 86922; 87040; 87077; 87086; 87186; 87205; 93005; 93306; 93312; 93325; 93970; 95885; 95910; 99232; A9270-GY; A9540; A9558; J0692; J0696; J1644; J2250; J2310; J2405; J3010; P9040

== ENCOUNTER 2017-07-24 17:47 | Inpatient (IN) | payer MEDICARE, BC ==
[2017-07-24] MEDS ORDERED: NS 0.9% 1000 ML* 2,500 ML IV ONE (17:54)
[2017-07-24] MEDS ORDERED: Acetaminophen TAB* 325 MG PO ONE (18:02)
[2017-07-24 18:27] LABS: Hematocrit 30 % (42-52); Hemoglobin 10.2 g/dl (14.0-18.0); Mean Corpuscular HGB Conc 34 g/dl (31-36); Mean Corpuscular Hemoglobin 30 pg (27-31); Mean Corpuscular Volume 89 fL (80-94); Mean Platelet Volume 6 um3 (7.4-10.4); Red Cell Distribution Width 16 % (10.5-15); White Blood Count 8.6 10^3/ul (3.5-10.8)
--- NOTE | 2017-07-24 18:27 | RAD ---
Indication: Fever. Increased weakness. Loss of appetite. Comparison: March 19, 2017 Technique: Upright AP 1803 hours Report: Small nodule at the LEFT midlung zone is unchanged compared with a chest radiograph from July 16, 2014 without concern. The lungs and pleural spaces are otherwise clear. Negative for pneumothorax. Upper normal heart size. RIGHT atrial and RIGHT ventricular level pacemaker leads. Unremarkable central pulmonary vasculature and mediastinal contours. IMPRESSION: No evidence for acute intrathoracic disease.
[2017-07-24 18:42] LABS: Albumin 2.5 g/dL (3.2-5.2); BUN/Creatinine Ratio 23.1 (8-20); Calcium 8.2 mg/dL (8.6-10.3); EGFR African American 76.4 (>60); EGFR Non-African American 59.4 (>60); Globulin 4.7 g/dL (2-4); Potassium 4.6 mmol/L (3.5-5.0); Total Bilirubin 0.5 mg/dL (0.2-1.0); Total Protein 7.2 g/dL (6.4-8.9)
[2017-07-24 18:44] LABS: Troponin I 0.03 ng/mL (<0.04)
[2017-07-24 19:11] LABS: C Reactive Protein 69.35 mg/L (< 5.00)
[2017-07-24] MEDS ORDERED: Ondansetron INJ* 2 MG/ML VIAL IV PRN (19:42)
[2017-07-24] MEDS ORDERED: Acetaminophen TAB* 325 MG PO PRN (19:42)
--- NOTE | 2017-07-24 19:50 | ED ---
Mauricio Titus Abhishek, scribed for Suzanne Londono MD on 07/24/17 at 1847 . HPI Febrile Illness - HPI Summary HPI Summary: This patient is an 86 year old F [facility] by with a chief complaint of fever since 1629. The CC is described as worse since today. The patient rates the pain 0/10 in severity. Symptoms aggravated by nothing. Symptoms alleviated by nothing. Patient reports weakness, and decreased appetite. Patient denies dysuria, irregular BM, and leg pain. PMHx includes melanoma, Parkinsons disease, DM, CAD. - History of Current Complaint Chief Complaint: EDFever Time Seen by Provider: 07/24/17 17:55 Hx Obtained From: Patient, Family/[employer] Onset/Duration: Started Hours Ago - 0700, Worse Since - 1629 Timing: Constant Current Severity: None Pain Intensity: 0 Pain Scale Used: 0-10 Numeric Aggravating Factors: Nothing Alleviating Factors: Nothing Associated Signs and Symptoms: Weakness, Other: - decreased appetite - Additional Pertinent History Primary Care Physician: NICK - Allergy/Home Medications Allergies/Adverse Reactions: Allergies Allergy/AdvReac Type Severity Reaction Status Date / Time No Known Allergies Allergy Verified 07/24/17 17:52 PMH/Surg Hx/FS Hx/Imm Hx Endocrine/Hematology History: Denies: Hx Diabetes Cardiovascular History: Reports: Hx Hypercholesterolemia, Hx Hypertension, Hx Pacemaker/ICD, Other Cardiovascular Problems/Disorders - hx pacemaker left chest wall, r/t atrial fibrillation Denies: Hx Congestive Heart Failure, Hx Peripheral Vascular Disease GI History: Denies: Other GI Disorders - pt. denies History: Reports: Hx Kidney Stones Denies: Hx Renal Disease Musculoskeletal History: Reports: Hx Back Problems Denies: Hx Arthritis, Hx Osteoporosis Sensory History: Reports: Hx Contacts or Glasses Denies: Hx Hearing Aid Opthamlomology History: Reports: Hx Contacts or Glasses Neurological History: Reports: Other Neuro Impairments/Disorders - parkinsons Denies: Hx Seizures, Hx Transient Ischemic Attacks (TIA) - Cancer History Cancer Type, Location and Year: melanoma Hx Chemotherapy: No Hx Radiation Therapy: No - Surgical History Surgery Procedure, Year, and Place: melanoma removed from back, pacemaker insertion 10 years ago updated last winter (in [place]), repair of torn tendon L elbow [facility]. Infectious Disease History: No Infectious Disease History: Denies: Traveled Outside the [place] in Last 30 Days - Family History Known Family History: Positive: Hypertension, Diabetes, Other - No fhx of PE. - Social History Occupation: Retired Alcohol Use: None Substance Use Type: Reports: None Hx Tobacco Use: No Smoking Status (MU): Never Smoked Tobacco Review of Systems Constitutional: Negative Eyes: Negative ENT: Negative Cardiovascular: Negative Respiratory: Negative Positive: Other - decreased appetite Positive: other - Negative irregular BM. Negative: dysuria Positive: Other - Negative leg pain Skin: Negative Positive: Weakness Psychological: Normal All Other Systems Reviewed And Are Negative: Yes Physical Exam - Summary Physical Exam Summary: General: Well appearing, no pain distress Skin: Mild generalized erythema over back Rash on the left lower flank around location of previous melanoma Eyes: EOMI, PATRICK ENT: Pharynx normal, TMs normal Neck: Supple, nontender Respiratory: CTA, breath sounds present, no rhonchi, no wheezes, no rales Cardiovascular: RRR, no murmur, no rub, no gallop Abdomen: Soft, nontender, Non-distended, no guarding, no rebound Bowel: Present Musculoskeletal: THOMAS, No edema Neuro: slow appearing and weak Psych: Affect/mood appropriateS, Triage Information Reviewed: Yes Vital Signs On Initial Exam: Initial Vitals Temp Pulse Resp BP Pulse Ox 102.3 F 77 15 155/69 99 07/24/17 17:48 07/24/17 17:48 07/24/17 17:48 07/24/17 17:48 07/24/17 17:48 Vital Signs Reviewed: Yes Diagnostics - Vital Signs Vital Signs Temp Pulse Resp BP Pulse Ox 07/24/17 17:48 102.3 F 77 15 155/69 99 - Laboratory Lab Results: Lab Results 07/24/17 07/24/17 07/24/17 Range/Units 18:18 18:18 18:18 WBC 8.6 (3.5-10.8) 10^3/ul RBC 3.40 L (4.0-5.4) 10^6/ul Hgb 10.2 L (14.0-18.0) g/dl Hct 30 L (42-52) % MCV 89 (80-94) fL MCH 30 (27-31) pg MCHC 34 (31-36) g/dl RDW 16 H (10.5-15) % Plt Count 231 (150-450) 10^3/ul MPV 6 L (7.4-10.4) um3 Neut % (Auto) 68.7 (38-83) % Lymph % (Auto) 19.4 L (25-47) % [place] % (Auto) 10.6 H (1-9) % Eos % (Auto) 0.8 (0-6) % Baso % (Auto) 0.5 (0-2) % Absolute Neuts (auto) 5.9 (1.5-7.7) 10^3/ul Absolute Lymphs (auto) 1.7 (1.0-4.8) 10^3/ul Absolute Monos (auto) 0.9 H (0-0.8) 10^3/ul Absolute Eos (auto) 0.1 (0-0.6) 10^3/ul Absolute Basos (auto) 0 (0-0.2) 10^3/ul Absolute Nucleated RBC 0 10^3/ul Nucleated RBC % 0 INR (Anticoag Therapy) 1.51 H (0.89-1.11) APTT 36.1 (26.0-36.3) seconds Sodium 131 L (133-145) mmol/L Potassium 4.6 (3.5-5.0) mmol/L Chloride 99 L (101-111) mmol/L Carbon Dioxide 28 (22-32) mmol/L Anion Gap 4 (2-11) mmol/L BUN 27 H (6-24) mg/dL Creatinine 1.17 (0.67-1.17) mg/dL Est GFR ( Amer) 76.4 (>60) Est GFR (Non-Af Amer) 59.4 (>60) BUN/Creatinine Ratio 23.1 H (8-20) Glucose 120 H (70-100) mg/dL Lactic Acid (0.5-2.0) mmol/L Calcium 8.2 L (8.6-10.3) mg/dL Total Bilirubin 0.50 (0.2-1.0) mg/dL AST 50 H (13-39) U/L ALT 6 L (7-52) U/L Alkaline Phosphatase 530 H (34-104) U/L Troponin I 0.03 (<0.04) ng/mL C-Reactive Protein 69.35 H (< 5.00) mg/L Total Protein 7.2 (6.4-8.9) g/dL Albumin 2.5 L (3.2-5.2) g/dL Globulin 4.7 H (2-4) g/dL Albumin/Globulin Ratio 0.5 L (1-3) 07/24/17 Range/Units 18:18 WBC (3.5-10.8) 10^3/ul RBC (4.0-5.4) 10^6/ul Hgb (14.0-18.0) g/dl Hct (42-52) % MCV (80-94) fL MCH (27-31) pg MCHC (31-36) g/dl RDW (10.5-15) % Plt Count (150-450) 10^3/ul MPV (7.4-10.4) um3 Neut % (Auto) (38-83) % Lymph % (Auto) (25-47) % [place] % (Auto) (1-9) % Eos % (Auto) (0-6) % Baso % (Auto) (0-2) % Absolute Neuts (auto) (1.5-7.7) 10^3/ul Absolute Lymphs (auto) (1.0-4.8) 10^3/ul Absolute Monos (auto) (0-0.8) 10^3/ul Absolute Eos (auto) (0-0.6) 10^3/ul Absolute Basos (auto) (0-0.2) 10^3/ul Absolute Nucleated RBC 10^3/ul Nucleated RBC % INR (Anticoag Therapy) (0.89-1.11) APTT (26.0-36.3) seconds Sodium (133-145) mmol/L Potassium (3.5-5.0) mmol/L Chloride (101-111) mmol/L Carbon Dioxide (22-32) mmol/L Anion Gap (2-11) mmol/L BUN (6-24) mg/dL Creatinine (0.67-1.17) mg/dL Est GFR ( Amer) (>60) Est GFR (Non-Af Amer) (>60) BUN/Creatinine Ratio (8-20) Glucose (70-100) mg/dL Lactic Acid 2.0 (0.5-2.0) mmol/L Calcium (8.6-10.3) mg/dL Total Bilirubin (0.2-1.0) mg/dL AST (13-39) U/L ALT (7-52) U/L Alkaline Phosphatase (34-104) U/L Troponin I (<0.04) ng/mL C-Reactive Protein (< 5.00) mg/L Total Protein (6.4-8.9) g/dL Albumin (3.2-5.2) g/dL Globulin (2-4) g/dL Albumin/Globulin Ratio (1-3) Result Diagrams: 07/24/17 18:18 07/24/17 18:18 Lab Statement: Any lab studies that have been ordered have been reviewed, and results considered in the medical decision making process. - Radiology Chest X - Ray reveals Radiology Interpretation Completed By: Radiologist - CXR reveals No evidence for acute intrathoracic disease. ED physician has reviewed this radiology report and agrees. Course/Dx - Course Course Of Treatment: 86 yo male with melanoma and fever he does have erythema on his back and his melanoma site on his back has been bleeding. Urine is pending but given weakness and the chemo he is on, Dr. Vann agreed with admission and will be contacting Dr. Rivera about abx coverage. - Diagnoses Provider Diagnoses: Malignant melanoma, Fever - Provider Notifications Discussed Care Of Patient With: Valerio Vann - Pt will be admitted. ED physician agrees with consult Time Discussed With Above Provider: 17:45 Discharge - Discharge Plan Condition: Stable Disposition: ADMITTED TO [facility] documentation as recorded by the Mauricio concepcion Abhishek accurately reflects the service I personally performed and the decisions made by , Suzanne Londono MD.
[2017-07-24] MEDS ORDERED: NS 0.9% 500 ML* 500 ML IV ONE (20:07)
[2017-07-24] MEDS ORDERED: Vancomycin per Pharmacy* NOTE FOLLOW UP PRN (20:29)
[2017-07-24] MEDS ORDERED: Vancomycin(*) 1,500 MG in NS 0.9% 250 ML* 250 ML IVPB ONE (21:00)
[2017-07-24] MEDS ORDERED: CARBIDOPA PO SCH (21:00)
[2017-07-24] MEDS ORDERED: LEVODOP PO SCH (21:00)
[2017-07-24] MEDS: Cefepime(*) 1 GM in NS 0.9% 50 ML* 50 ML IVPB SCH (22:00)
[2017-07-24] MEDS: Warfarin TAB(*) 4 MG PO SCH (23:20)
[2017-07-24 23:47] LABS: Urine Bacteria Absent (Absent); Urine Bilirubin Negative (Negative); Urine Glucose Negative (Negative); Urine Nitrite Negative (Negative)
[2017-07-25] MEDS ORDERED: Carbidopa/Levodop 25/100 MG TAB(*) PO ONE (00:15)
[2017-07-25 07:14] LABS: Hematocrit 25 % (42-52); Hemoglobin 8.4 g/dl (14.0-18.0); Mean Corpuscular HGB Conc 33 g/dl (31-36); Mean Corpuscular Hemoglobin 30 pg (27-31); Mean Corpuscular Volume 90 fL (80-94); Mean Platelet Volume 7 um3 (7.4-10.4); Red Cell Distribution Width 16 % (10.5-15); White Blood Count 4.8 10^3/ul (3.5-10.8)
[2017-07-25 07:35] LABS: Albumin 2.1 g/dL (3.2-5.2); EGFR African American 91.6 (>60); EGFR Non-African American 71.2 (>60); Globulin 3.8 g/dL (2-4); Potassium 4.1 mmol/L (3.5-5.0); Total Bilirubin 0.5 mg/dL (0.2-1.0); Total Protein 5.9 g/dL (6.4-8.9)
[2017-07-25] MEDS: Cefepime(*) 1 GM in NS 0.9% 50 ML* 50 ML IVPB SCH ×2 (08:52→20:43)
[2017-07-25] MEDS: Carbidopa/Levodop 25/100 MG TAB(*) PO SCH ×5 (08:53→20:43)
[2017-07-25] MEDS: Metoprolol Succinate XL TAB* 50 MG PO SCH (08:53)
--- NOTE | 2017-07-25 09:04 | HP ---
CC: Dr. Mitchell; Dr. Antoine* HISTORY AND PHYSICAL: DATE OF ADMISSION: 07/24/17 TIME OF MY EVALUATION: 7:30 p.m. PRIMARY CARE PROVIDER: Dr. Caitlyn Mitchell. OUTPATIENT ONCOLOGIST: Dr. Sesar Antoine. CHIEF COMPLAINT: Acute fever without apparent cause. HISTORY OF PRESENT ILLNESS: Mr. Gastelum is a medically complex 86-year-old gentleman with an extensive past medical history that will be detailed below. The patient was in his usual state of health, residing in his home when he developed a fever without localizing symptoms. The fever was initially just over 100 and his family (who accompanies him now) rechecked and it was above 101. By the time the patient was brought to the emergency room, his temperature was 102.5. The patient is on oral chemotherapy medications for metastatic melanoma and has been on this regimen for some time. Currently, he takes Tafinlar (dabrafenib) as well as Mekinist (trametinib). He is under the care of Dr. Sesar Antoine in the outpatient setting. Mr. Gastelum states that he feels well at this point, having received fluids in the emergency room as well as Tylenol. His fever is downwardly trending at this point. He denies any localizing symptoms including respiratory infection - he denies sputum production or cough or shortness of breath. He denies any skin rashes other than a worsening metastatic lesion at his left flank/waist, which has actually bled in the past few days. However, there has been no surrounding erythema or evidence of fluctuance or infection. The patient does have a reticular rash on his upper back that is blanching, raising the possibility of a drug rash vs viral exanthem - this rash appeared in the last day and corresponded with his fever. The patient denies any urinary symptoms or acute neurologic changes. He described clear rhinorrhea, but no fluctuance, no ear pain. No sinus pressure. He had loose stools over the past month, but not currently. This was noted in the order for a liver ultrasound, which was on 07/19/17. Mr. Gastelum is referred for observation given his immunosuppressed state and the possibility of this presentation (high fever) being from an infectious source or related to his oncologic medication regimen. PAST MEDICAL HISTORY: 1. Recent admission in March 2017 for bilateral deep venous thrombosis and pulmonary emboli in addition to Klebsiella bacteremia 2. Status post hip arthroplasty. 3. Parkinson's Disease 4. Colonic diverticulosis. 5. Punctate right renal stone. 6. Lower extremity weakness. 7. 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 8. Lumbar spinal stenosis. 9. Axonal neuropathy. 10. 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 11. Metastatic melanoma for multiple years - treated by Dr. Sesar Antoine. 11. Paroxysmal atrial fibrillation. 12. Sick sinus syndrome with pacemaker in situ. 13. Status post insertion of watchman device (atrial clot prevention strategy). 14. Mild global hypokinesis on echocardiogram. 15. Patent foramen ovale/atrial septal aneurysm on echocardiogram. 16. Moderate aortic insufficiency/mitral regurgitation. 17. Left atrial enlargement. 18. Gout 19. BPH. 20. Anemia of chronic disease 21. Hypertension. 22. History of Robyn's thyroiditis/positive antithyroid antibodies. 23. Aortic sclerosis. 24. History of upper GI bleed with EGD in January 2017 showing duodenal ulcer, gastric erosions, esophagitis - H. pylori negative. 25. Hiatal hernia. 26. History of Staphylococcus aureus bacteremia in 2013. 27. Umbilical hernia containing fat. OUTPATIENT MEDICATIONS: 1. Carbidopa/levodopa 25/100 three pills 3 times daily. 2. Pantoprazole 20 mg by mouth twice daily. 3. Warfarin 4 mg by mouth daily (currently on 2.5 by report). 4. Atenolol 25 mg by mouth daily. 5. Atorvastatin 20 mg by mouth daily. 6. Docusate 100 mg by mouth twice daily. 7. Multivitamin 1 tablet by mouth twice daily. 8. MiraLAX 17 g daily. 9. Tafinlar 150 mg by mouth daily. 10. Mekinist 2 mg by mouth daily. ALLERGIES: No known drug allergies. FAMILY HISTORY: Reviewed, but noncontributory based on the current presentation in this 86-year-old gentleman. SOCIAL HISTORY: Patient's comes from his home. He was recently in [facility] for rehabilitation after his hospitalization in March. He is accompanied by his female significant other as well as his daughter, Meredith Riley , who is his next of kin and can be reached at [phone]. The patient is a DNR with a signed MOLST that will be updated in his record. REVIEW OF SYSTEMS: A review of 14 systems was accomplished at the bedside and is largely negative except for the pertinent positives mentioned in the HPI and past medical history. The patient and his family described the bleeding of his metastatic lesion on his left side. They also discussed recent loose stools that have become less problematic in the past few days. PHYSICAL EXAMINATION ON ADMISSION: GENERAL APPEARANCE: Elderly-appearing man who appears stated age. VITAL SIGNS: Temperature initially 102.5 degrees Fahrenheit down to 97 degrees over the course of the next few hours with antipyretic therapy, heart rate consistently in the 70s and regular and paced. Respirations 16 and unlabored. Oxygen saturation high 90s on room air, blood pressure 140s to 150s over 60s to 70s. HEENT: Normocephalic, atraumatic. Pupils equal, round, and reactive to light and accommodation. NECK: No elevated jugular venous pressure. No lymphadenopathy appreciated. CHEST: Clear breath sounds anteriorly and posteriorly. CARDIOVASCULAR: Normal S1 and S2. Regular rate appreciated. He has got a pacemaker in his subclavicular fossa. ABDOMEN: Positive bowel sounds heard. He has several pigmented firm nodular lesions subcutaneously consistent with malignant metastatic melanoma. SKIN: Dry and intact on his upper torso. Posteriorly he has a diffuse reticular blanching rash that is consistent with a drug rash. EXTREMITIES: Without clubbing or cyanosis. He does have bilateral edema and 2 + pulses distally. His joints are not inflamed. PSYCH: Normal affect. No acute anxiety or depression. NEURO: Not fully tested. He was not ambulated. He moves all his extremities. He is generally weak. ADMISSION DATA: White blood cell count 8.6 with a generally normal differential , hemoglobin 10.2, which is at approximately his baseline, platelets 231, INR 1.51 (on Coumadin). Sodium depressed at 131, which is approximately his baseline, he was 137 back in May 2017, but many previous values were in this range; potassium 4.6; chloride 99; bicarb 28; BUN 27; creatinine 1.17; glucose 120; lactic acid 2. Calcium 8.2, which is normal considering his albumin of 2.5 , total protein preserved at 7.2, CRP elevated at 69.35. AST 50, ALT 6, alk phos elevated at 530. Urinalysis unremarkable. EKG is A-sensed, V-paced rhythm at 70 beats per minute. Chest x-ray does not show any acute pulmonary disease. IMPRESSION AND PLAN: Mr. Gastelum is an 86-year-old gentleman with a history of Parkinson's disease as well as metastatic malignant melanoma, on antineoplastic regimen for some time with recent medical complications of acute DVT and pulmonary embolism and Klebsiella bacteremia in March 2017, with a subsequent rehabilitation stay at [facility], now living at home, who presents with an acute fever and no clear explanation for the fever beyond the fact that his antineoplastic regimen is known to cause febrile illness. The patient was covered with vancomycin and cefepime in the emergency room and blood cultures were drawn. The patient responded nicely to Tylenol therapy and is now normothermic. His antineoplastic agents are going to be held and he will be seen in consultation by Oncology. In the interim, we will employ watchful waiting and surveillance for any evidence of a focal infection. I note the patient has a bleeding metastatic lesion on his left flank, which was of concern to his family, although upon inspection, there does not seem to be any fluctuance, although the lesion did recently bleed (given he was on anticoagulation). The patient's outpatient medicines with the exception of his antineoplastic regimen will be continued as previously intended. There was some question by the pharmacy about his carbidopa/levodopa dosing and this will be researched in the morning. The patient will be evaluated by Physical Therapy to assess the safety of home living considering he seems quite weak at this point and was not ambulated in the emergency room. The patient will have access to a regular diet and will see how he does with respect to calorie intake. The patient is a DNR/DNI and his MOLST was brought to the emergency room and will be updated by me (no changes intended). There will be one medication change: the patient is on warfarin for anticoagulation and his INR is 1.52 and his warfarin dose will be increased to 4 mg daily - I note on his med reconciliation, he is on 2.5 mg daily. Patient will be signed out to Dr. Caitlyn Mitchell or covering physician for ongoing care. Total time spent on this admission was 75 minutes, with greater than half of that spent face to face with the patient interviewing him (and his family) and describing the plan of care for this hospitalization. [id number]/[facility] #: [id number] [facility]
--- NOTE | 2017-07-25 10:10 | PN ---
Progress Note - Progress Note Date of Service: 07/25/17 SOAP: Subjective: []Fever last night. In good humor today, did not complain of pain. Per family developed bleeding around left flank lesion over weekend. At home had chills, shaking but not fever. In ER fever to 102. Better this am. Acetaminophen (Tylenol Tab*) 650 mg PO Q4H PRN PRN Reason: FEVER/PAIN Carbidopa/Levodopa (Sinemet 25/100 Tab(*)) 2 tab PO 0800,1100,1400,1700 [facility] Last Admin: 07/25/17 08:53 Dose: 2 tab Carbidopa/Levodopa (Sinemet 25/100 Tab(*)) 1 tab PO 2000 [facility] Cefepime HCl 1 gm/ Sodium (Chloride) 50 mls @ 100 mls/hr IVPB Q12H [facility] Last Admin: 07/25/17 08:52 Dose: 100 mls/hr Vancomycin HCl 1,000 mg/ (Sodium Chloride) 250 mls @ 166.667 mls/hr IVPB Q12H [facility] Metoprolol Succinate (Toprol Xl Tab*) 50 mg PO DAILY [facility] Last Admin: 07/25/17 08:53 Dose: 50 mg Ondansetron HCl (Zofran Inj*) 4 mg IV Q4H PRN PRN Reason: NAUSEA/VOMITING Pharmacy Consult (Vancomycin Per Pharmacy*) 1 note FOLLOW UP . PRN PRN Reason: PER PROTOCOL Pharmacy Profile Note (Vancomycin Trough Check) 1 note FOLLOW UP 1130 ONE Stop: 07/26/17 11:31 Warfarin Sodium (Coumadin Tab(*)) 4 mg PO DAILY@1700 BRODY PRN Reason: Protocol Last Admin: 07/24/17 23:20 Dose: 4 mg Objective: [] Vital Signs Temp Pulse Resp BP Pulse Ox 97.0 F 70 13 146/69 98 07/25/17 03:15 07/25/17 03:10 07/25/17 03:10 07/25/17 03:10 07/25/17 03:10 No distress HEENT - pale Left flank lesion improved from what was recorded in May note and smaller per family and Dr. Mitchell. Assessment: []86 year old with Braf positive melanoma who has had durable response draafenib and tranetinib, cutaneous only disease. Recent ulceration and bleeding from lesion, now admitted with fever. Appears to be acute infection though source unclear. Low suspicion for drug fever. Plan: []1. Infection. He is a-febrile on IV abx. Will follow cultures to day and if negative consider d/c with 10 day course of Keflex 2. Check CT of abd/pelvis to evaluate for abscess. 3. Will follow up as outpatient and consider re-staging and therapy with T-VEC.
[2017-07-25] MEDS ORDERED: Iohexol 300* (CONTRAST) 10 ML SDV IV ONE (10:51)
[2017-07-25] MEDS ORDERED: NS 0.9% 250 ML* 250 ML ONE (11:13)
[2017-07-25] MEDS: Vancomycin(*) 1,000 MG in NS 0.9% 250 ML* 250 ML IVPB SCH ×2 (11:20→23:03)
--- NOTE | 2017-07-25 14:34 | RAD ---
INDICATION: Melanoma. Fever of unknown origin. COMPARISON: Hepatic sonogram July 19, 2017; noncontrast CT March 11, 2017 TECHNIQUE: Axial source images were obtained from the thoracic inlet to the symphysis pubis following administration of oral and intravenous contrast. 108 mL Omnipaque 300 was utilized. Coronal and sagittal reconstructed images were acquired. CHEST FINDINGS: Neck/thyroid: The visualized neck to include the thyroid appear normal. Chest wall: There are no acute abnormalities of the bony thorax or chest wall. There is no supraclavicular, infraclavicular, or axillary lymphadenopathy. Lungs : There is mild bronchiectatic changes in lung bases. There is a calcified granuloma in the left lung base. There is minor pleural thickening lung bases perhaps with scant pleural fluid in the left base. Cardiomediastinal structures: There is cardiomegaly. There is pacemaker artifact. There is no pericardial effusion. There is no evidence of aortic aneurysm or dissection. The pulmonary vessels appear normal. There is no mediastinal or hilar adenopathy. The esophagus appears normal. Pleura : There are no pleural-based masses or effusions. ABDOMINAL/PELVIC FINDINGS: Liver: Liver is normal in size. There is periportal edema and there is mild intrahepatic ductal dilatation. There are also findings that suggest enhancement of the wall of the common bile duct. There may be noncalcified choledocholithiasis or possibly cholangitis. Gallbladder: There are no calcified gallstones. There is no evidence of wall thickening. There is trace pericholecystic fluid. Spleen: The spleen is normal in size. There are no masses. Pancreas: There is no evidence of pancreatic mass or ductal dilatation. Adrenal glands: There is no evidence of adrenal mass. Kidneys: The kidneys are normal in size and position. There are prompt nephrograms and there is prompt excretion bilaterally. There are numerous renal cortical cysts measuring up to 9 cm on the left. There is a nonobstructive, mid pole right renal calculus. Adenopathy: There is no evidence of adenopathy by size criteria. Fluid collections: There are no free or localized fluid collections. Vessels:There are atherosclerotic changes of the aorta. There is no focal aneurysm. The IVC is unremarkable GI tract: There are no acute CT bowel findings. There is no obstruction. The stomach and small bowel appear normal. There are scattered diverticula of the sigmoid colon. There is no obstruction. Pelvic organs: Prostate is grossly normal. Evaluation is limited due to beam hardening artifact from right hip arthroplasty. Bladder: The bladder is grossly normal. Evaluation is limited due to beam hardening artifact from right hip arthroplasty. Abdominal and pelvic soft tissues: There is a superficial 5.5 cm mass in the left flank. This dominant lesion appears partially necrotic centrally. There is an additional subcutaneous 2.3 cm mass and several subcentimeter lesions are also evident. There is skin induration. Cellulitic response is not excluded. Osseous structures: There are no acute osseous findings. IMPRESSION: 1. Mild basilar bronchiectasis. No acute infiltrates. 2. Cardiomegaly 3. Mild intrahepatic ductal dilatation and periportal edema. There may be mild enhancement of the wall of the common common bile duct. Consider cholangitis or noncalcified choledocholithiasis in the appropriate clinical setting. 4. Bilateral renal cysts. Nonobstructive right-sided nephrolithiasis. 5. Scattered diverticula of the sigmoid colon. 6. Subcutaneous masses left lateral pelvic wall and left flank. Possible left flank cellulitis
--- NOTE | 2017-07-25 16:14 | RAD ---
INDICATION: Abnormal liver. Fever. COMPARISON: CT July 25, 2017 TECHNIQUE: Following the administration of 6.1 millicuries of technetium 99m mebrofenin, serial, static, anterior images of the abdomen were obtained at 5 minute increments for a period of one hour. FINDINGS: There is prompt uptake of radiopharmaceutical within the liver indicating normal hepatic function. There is prompt visualization of the gallbladder and small bowel indicating patency of the cystic and common ducts. IMPRESSION: THE COMMON AND CYSTIC DUCTS ARE PATENT.
[2017-07-25] MEDS: Warfarin TAB(*) 4 MG PO SCH (17:27)
[2017-07-26 06:54] LABS: Hematocrit 25 % (42-52); Hemoglobin 8.4 g/dl (14.0-18.0); Mean Corpuscular HGB Conc 33 g/dl (31-36); Mean Corpuscular Hemoglobin 30 pg (27-31); Mean Corpuscular Volume 89 fL (80-94); Mean Platelet Volume 7 um3 (7.4-10.4); Red Blood Count 2.81 10^6/ul (4.0-5.4); Red Cell Distribution Width 16 % (10.5-15); White Blood Count 4.3 10^3/ul (3.5-10.8)
[2017-07-26 07:14] LABS: Albumin 2.1 g/dL (3.2-5.2); BUN/Creatinine Ratio 19.6 (8-20); C Reactive Protein 73.1 mg/L (< 5.00); Calcium 7.9 mg/dL (8.6-10.3); EGFR African American 80.3 (>60); EGFR Non-African American 62.5 (>60); Globulin 4.1 g/dL (2-4); Potassium 3.9 mmol/L (3.5-5.0); Total Bilirubin 0.4 mg/dL (0.2-1.0); Total Protein 6.2 g/dL (6.4-8.9)
[2017-07-26] MEDS: Cefepime(*) 1 GM in NS 0.9% 50 ML* 50 ML IVPB SCH ×2 (08:16→20:56)
[2017-07-26] MEDS: Carbidopa/Levodop 25/100 MG TAB(*) PO SCH ×5 (08:16→20:59)
[2017-07-26] MEDS: Metoprolol Succinate XL TAB* 50 MG PO SCH (08:16)
[2017-07-26] MEDS ORDERED: Vancomycin Trough Check NOTE FOLLOW UP ONE (11:30)
[2017-07-26] MEDS: Vancomycin(*) 1,000 MG in NS 0.9% 250 ML* 250 ML IVPB SCH ×2 (12:08→23:34)
[2017-07-26] MEDS: Warfarin TAB(*) 4 MG PO SCH (17:19)
[2017-07-27 04:59] VITALS: BP 153/74
[2017-07-27 07:08] LABS: Hematocrit 27 % (42-52); Hemoglobin 9.2 g/dl (14.0-18.0); Mean Corpuscular HGB Conc 34 g/dl (31-36); Mean Corpuscular Hemoglobin 30 pg (27-31); Mean Corpuscular Volume 89 fL (80-94); Mean Platelet Volume 7 um3 (7.4-10.4); Red Blood Count 3.04 10^6/ul (4.0-5.4); Red Cell Distribution Width 16 % (10.5-15); White Blood Count 4.3 10^3/ul (3.5-10.8)
[2017-07-27 07:50] LABS: Albumin 2.2 g/dL (3.2-5.2); BUN/Creatinine Ratio 19.4 (8-20); C Reactive Protein 46.49 mg/L (< 5.00); Calcium 8.2 mg/dL (8.6-10.3); EGFR African American 88.5 (>60); EGFR Non-African American 68.8 (>60); Globulin 4.3 g/dL (2-4); Magnesium 1.7 mg/dL (1.9-2.7); Phosphorus 2.4 mg/dL (2.5-5.0); Potassium 4.1 mmol/L (3.5-5.0); Total Bilirubin 0.4 mg/dL (0.2-1.0); Total Protein 6.5 g/dL (6.4-8.9)
[2017-07-27] MEDS: Metoprolol Succinate XL TAB* 50 MG PO SCH (08:24)
[2017-07-27] MEDS: Carbidopa/Levodop 25/100 MG TAB(*) PO SCH ×3 (08:24→13:58)
[2017-07-27] MEDS: Cefepime(*) 1 GM in NS 0.9% 50 ML* 50 ML IVPB SCH (08:24)
[2017-07-27] MEDS: Vancomycin(*) 1,000 MG in NS 0.9% 250 ML* 250 ML IVPB SCH (12:02)
--- NOTE | 2017-07-30 22:54 | DS ---
DISCHARGE SUMMARY: DATE OF ADMISSION: 07/25/17 DATE OF DISCHARGE: 07/27/17 DISCHARGE DIAGNOSES: 1. Fever, likely due to cellulitis of the back, surrounding melanoma of the left flank. 2. History of pulmonary emboli. 3. Metastatic melanoma. 4. History of Klebsiella bacteremia 2016. 5. Status post hip arthroplasty. 6. Punctate right renal stone. 7. Colonic diverticulosis. 8. Umbilical hernia containing fat. 9. 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 10. Parkinson's disease. 11. Axonal neuropathy. 12. Hyperglobulinemia. 13. MGUS. 14. History of paroxysmal atrial fibrillation. 15. Pacemaker for sick sinus syndrome. 16. Status post insertion of a watchman device. 17. Mild global hypokinesis on echocardiogram. 18. Patent foramen ovale and atrial septal aneurysm on echo. 19. Moderate aortic insufficiency and mitral regurgitation. 20. Left atrial enlargement. 21. History of gout. 22. History of benign prostatic hypertrophy. 23. Anemia of chronic disease. 24. History of hypertension. 25. Robyn's thyroiditis with positive antithyroid antibodies. 26. Aortic sclerosis. 27. History of GI bleed, January 2017. 28. History of staph aureus bacteremia, 2013. HISTORY OF PRESENT ILLNESS: Robert Gastelum is an 86-year-old man, admitted with fever and weakness. Please see the dictated admission note for details of the present illness, past medical history, family history, social and personal history, review of systems, and physical examination. DIAGNOSTIC STUDIES/LAB DATA: CBC on 07/24/17: WBC 8.6, H and H 10.2/30, MCV 89 , PLT 231,000. CBC prior to discharge on 07/27/17: WBC 4.3, H and H 9.2/27, MCV 89, PLT 206,000. PT on 07/24/17 was 1.51, on 07/26/17 was 1.80, PTT was normal at 36.1. Chemistries on admission: Sodium 131, potassium 4.6, chloride 99, CO2 28, BUN and creatinine 27/1.17, glucose 120, calcium 8.2. AST/ALT 50/6 on admission, 35/4 prior to discharge. Rest of his comprehensive metabolic panel was abnormal for albumin 2.5, globulin 4.7. C-reactive protein on was 69.35, on 07/26/17 was 73.10 and on 07/27/17 had come down to 46.49. Alkaline phosphatase started at 530, came down to 447 on 07/25/17 and was 449 on 07/26/17 and 444 on 07/27/17. Procalcitonin was 0.2 on 07/26/17. Phosphorus was slightly low at 2.4 on 07/27/17. Magnesium was 1.7 on 07/27/17. Urinalysis : Yellow, clear, specific gravity 1.005, pH 6, dipsticks positive for blood 1+ , otherwise is unremarkable. Vancomycin trough on 07/26/17 was 15.7. Blood cultures x2 on 07/24/17 were no growth. IMAGING: Chest x-ray on 07/24/17 showed no evidence for acute intrathoracic disease. Chest, abdomen, and pelvis CT on 07/25/17 showed mild bronchiectatic changes in the lung bases, calcified granuloma in the left lung base, minor pleural thickening in lung bases with perhaps scant pleural fluid in the left base. Cardiomegaly was noted, pacemaker. There was felt to be noncalcified choledocholithiasis possible and enhancement of the wall of the common bile duct , but no calcified gallstones. It was felt that with mild intrahepatic ductal dilatation and periportal edema, mild enhancement of the wall of the common bile duct that cholangitis or noncalcified choledocholithiasis might be possible. There are bilateral renal cysts, nonobstructive right-sided nephrolithiasis, scattered diverticula of the colon and subcutaneous masses of the left lateral pelvic wall and left flank with possible left flank cellulitis. Hepatobiliary scan, Nuclear Medicine, 07/25/17, showed prompt visualization of the gallbladder and small bowel without obstruction of the common and cystic ducts. EKG on 07/24/17 showed paced rhythm. HOSPITAL COURSE: The patient was initially admitted and placed on vancomycin and cefepime in the emergency room after blood cultures were drawn. He responded to Tylenol and with his temperature coming down, his antineoplastic agents were held. He was seen in consultation by Dr. Antoine of Oncology. It was Dr. Antoine's feeling on 07/25/17 that he had infection and should continue on antibiotics IV and then followed by p.oUsman Ruelas. He concurred with a CT to evaluate for abscess. He felt that he should be restaged with regards to his melanoma and therapy with T-VEC be considered. The patient's family reported that his melanoma nodule on the left flank had bled due to minor trauma. It seemed to swell up and then burst with significant amount of blood coming out of it before admission. It was felt that he had a probable bacterial infection , so antibiotics were continued. Imaging was done as noted above. Dr. Antoine discussed with me and the family the possibility of using vaccine locally to treat the melanoma. He was considered on his usual warfarin and the dose is adjusted. His Sinemet is continued for Parkinson's. On 07/26/17, he felt better, still weak, but better than on admission. He had PT evaluation. His CRP initially went up and started to come down. By 07/27/17, he denied pain, was feeling better, felt improved and ready to go home. He was discharged. DISCHARGE INSTRUCTIONS: On 07/27/17 DIET: Usual. ACTIVITY: As tolerated. MEDICATIONS: 1. Carbidopa/levodopa 25/100 3 pills 2 times a day. 2. Pantoprazole 20 twice a day. 3. Atorvastatin 20 mg once a day. 4. Warfarin 2.5 mg 2 daily or as directed. 5. Docusate 100 mg once a day. 6. Metoprolol Extended Release 50 mg once a day. 7. Cephalexin 500 mg 3 times a day. He is to have an INR on 07/29/17. He is to see me back in 1 to 2 weeks. [id number]/[facility] #: [id number] GUTH[facility] CORNING HOSPITALHéctor
== END 2017-07-27 14:25 | disposition home health service (06) | DRG 603 ==
LOC: ED 17:47 → MED 19:42 → OBSVTOIN 07-25 10:20
PROVIDERS: ADMIT Internal Medicine; ATTEND Internal Medicine Geriatric Medicine
DX: L03.312 Cellulitis of back [any part except buttock and flank] (principal); G20 Parkinson's disease; G62.9 Polyneuropathy, unspecified; C43.59 Malignant melanoma of other part of trunk; D47.2 Monoclonal gammopathy; N28.1 Cyst of kidney, acquired; I48.0 Paroxysmal atrial fibrillation; I72.8 Aneurysm of other specified arteries; B96.89 Other specified bacterial agents as the cause of diseases classified elsewhere; E11.9 Type 2 diabetes mellitus without complications; E06.3 Autoimmune thyroiditis; E78.00 Pure hypercholesterolemia, unspecified; I10 Essential (primary) hypertension; Z96.649 Presence of unspecified artificial hip joint; M50.30 Other cervical disc degeneration, unspecified cervical region; M51.34 Other intervertebral disc degeneration, thoracic region; M48.061 Spinal stenosis, lumbar region without neurogenic claudication; I25.10 Atherosclerotic heart disease of native coronary artery without angina pectoris; I70.0 Atherosclerosis of aorta; N40.0 Benign prostatic hyperplasia without lower urinary tract symptoms; M10.9 Gout, unspecified; K57.30 Diverticulosis of large intestine without perforation or abscess without bleeding; K42.9 Umbilical hernia without obstruction or gangrene; M51.36 Other intervertebral disc degeneration, lumbar region; R77.1 Abnormality of globulin; D63.8 Anemia in other chronic diseases classified elsewhere; N20.0 Calculus of kidney; Z95.0 Presence of cardiac pacemaker; Z82.49 Family history of ischemic heart disease and other diseases of the circulatory system; Z83.3 Family history of diabetes mellitus; Z85.820 Personal history of malignant melanoma of skin; Q21.1 Atrial septal defect; Z86.718 Personal history of other venous thrombosis and embolism; Z86.711 Personal history of pulmonary embolism; Z79.01 Long term (current) use of anticoagulants
CPT/HCPCS: 36415; 71010; 71260; 74177; 78226; 80053; 80202; 81003; 81015; 83605; 83735; 84100; 84145; 84484; 85025; 85027; 85610; 85730; 86140; 87040; 93005; 99232; A9270-GY; A9537; G0378; J0692; J3370; Q9967

== ENCOUNTER 2017-08-23 13:33 | Day surgery (SDC) | payer MEDICARE, BC ==
[~2017-08-23 13:33] MED LIST: Buffered Lidocaine 0.9% SYRIN* 5 ML/SYR SYRINGE INTRADERM ONE
[2017-08-23] MEDS ORDERED: Buffered Lidocaine 0.9% SYRIN* 5 ML/SYR SYRINGE ONE (14:46)
[2017-08-23] MEDS ORDERED: ceFAZolin 2 GM PREMIX (*) 2 GM/50 ML BAG IVPB ONE (14:46)
[2017-08-23] MEDS ORDERED: Bupivacaine 0.25% SDV* 30 ML ONE (17:01)
[2017-08-23] MEDS ORDERED: Lidocaine 1% MPF wEPI 200,000* 30 ML SDV ONE ×2 (17:01→17:14)
[2017-08-23] MEDS ORDERED: fentaNYL* 50 MCG/ML 2 ML VIAL (100 MCG VIAL) ONE (17:18)
[2017-08-23] MEDS ORDERED: Propofol* 10 MG/ML 20 ML BTL IV PUSH ONE (17:28)
[2017-08-23 20:50] VITALS: BP 154/80
== END 2017-08-23 19:25 | disposition home or self-care (01) ==
LOC: OR 13:33
PROVIDERS: ATTEND Plastic Surgery
DX: C79.2 Secondary malignant neoplasm of skin (principal); Z86.718 Personal history of other venous thrombosis and embolism; Z79.01 Long term (current) use of anticoagulants; Z95.0 Presence of cardiac pacemaker; G20 Parkinson's disease; I48.0 Paroxysmal atrial fibrillation; I49.5 Sick sinus syndrome
CPT/HCPCS: 88305; 88342; J0690; J2001; J2704; J3010

== ENCOUNTER 2017-09-27 10:21 | Inpatient (IN) | payer MEDICARE, BC ==
[2017-09-27] MEDS ORDERED: NS 0.9% 1000 ML* 1,000 ML IV SCH (11:45)
--- NOTE | 2017-09-27 11:57 | RAD ---
Indication: Face and arm were discussed. CT of the brain was performed without IV contrast. Ventricular structures are midline. No midline shift is noted. There is left frontal hyperdensity consistent with intraparenchymal hematoma. Additional hematoma is noted in the left posterior frontal lobe. No midline shift is noted. Adjacent vasogenic edema is noted. The right cerebral hemisphere is otherwise unremarkable. Posterior fossa is otherwise unremarkable. IMPRESSION: Intraparenchymal hematoma in the left frontal lobe anteriorly and posteriorly. They measure 2.5 cm each.
--- NOTE | 2017-09-27 12:09 | RAD ---
INDICATION: Cerebrovascular accident. COMPARISON: Comparison is made with a prior study from July 24, 2017. TECHNIQUE: A portable view of the chest was obtained. FINDINGS: There is a dual-chamber transvenous pacemaker. The heart is within normal limits in size for this portable study. The lungs are clear. No pleural effusion is seen. IMPRESSION: NO EVIDENCE FOR ACUTE DISEASE.
[2017-09-27 12:22] LABS: ABS Basophils 0.1 10^3/ul (0-0.2); ABS Eosinophils 0.1 10^3/ul (0-0.6); ABS Lymphocytes 1.2 10^3/ul (1.0-4.8); ABS Monocytes 0.4 10^3/ul (0-0.8); ABS Neutrophils 3.3 10^3/ul (1.5-7.7); ABS Nucleated RBC 0.01 10^3/ul; Eosinophil % 2.4 % (0-6); Hematocrit 28 % (42-52); Hemoglobin 9.2 g/dl (14.0-18.0); Lymphocyte % 23.9 % (25-47); Mean Corpuscular HGB Conc 33 g/dl (31-36); Mean Corpuscular Hemoglobin 29 pg (27-31); Mean Corpuscular Volume 88 fL (80-94); Mean Platelet Volume 7 um3 (7.4-10.4); Nucleated Red Blood Cells % 0.1; Platelet Count 267 10^3/ul (150-450); Red Blood Count 3.18 10^6/ul (4.0-5.4); Red Cell Distribution Width 16 % (10.5-15)
[2017-09-27] MEDS ORDERED: Protamine Sulfate* 50 MG in NS 0.9% 50 ML* 50 ML IV ONE (12:38)
[2017-09-27 12:41] LABS: EGFR Non-African American 54.4 (>60)
[2017-09-27 12:47] LABS: INR 1.03 (0.77-1.02)
[2017-09-27] MEDS ORDERED: Iodixanol* (CONTRAST) 320 MG/ML 100 ML SDV IV ONE (17:01)
--- NOTE | 2017-09-27 17:40 | RAD ---
INDICATION: Right-sided hemiparesis. COMPARISON: Comparison is made with prior CTs of the brain from March 18, 2017 and March 28, 2017. TECHNIQUE: Contiguous axial sections of the brain were obtained from the skull base to the vertex with contrast following intravenous injection of 75 ml of Visipaque 320 nonionic contrast. FINDINGS: There are 2 hyperdense lesions present in the left frontal and parietal lobes which are seen on the prior noncontrast study. The lesion in the frontal lobe appears slightly larger on this contrast enhanced study suggested some peripheral contrast enhancement. In addition there are 2 smaller lesions one in the posterior left parietal lobe which is better visualized on the current study measuring 0.9 cm in size and a second in the posterior left temporal lobe measuring 1.0 cm in size which is not well seen on the prior study. There is a significant amount of surrounding edema causing localized mass effect with effacement of adjacent sulci. No midline shift is noted. No significant focal osseous abnormality is present. The visualized portion of the paranasal sinuses and mastoid air cells appear clear. IMPRESSION: MULTIPLE HYPERDENSE LESIONS SOME SHOWING CONTRAST ENHANCEMENT SUSPICIOUS FOR HEMORRHAGIC METASTASES.
[2017-09-27] MEDS: Metoprolol Succinate XL TAB* 25 MG PO SCH (17:56)
--- NOTE | 2017-09-27 18:31 | ED ---
Mauricio Titus Abhishek, scribed for Yanick Turner MD on 09/27/17 at 1123 . Neurological HPI - HPI Summary HPI Summary: This patient is a 87 year old M presenting to [facility] accompanied by two females and 2 males with a chief complaint of neurological deficit since last night. The history of the patient and report was given by the patients family members and caretakers. Patient is worse since yesterday. Patient was unable to ambulate to bathroom, raise right arm. Pt also shows right sided weakness. The family and caretakers state he starts dropping to the left and right sides and has no strength nothing at all. Pt was on warfarin medication and later prescribed Lovenox 120 mg (2 shots). Pertinent PMHx includes Parkinsons disease , and a recent (1 week ago) blood clot in the right leg. Patient reports also include weakness, slurred speech, slight facial drooping and leg stiffness. The patient rates the pain 0/10 in severity. Symptoms aggravated by nothing. Symptoms alleviated by nothing. Patient denies ambulation, sensation in both legs, both upper extremity and lower extremities, and vision deficit. - History of Current Complaint Chief Complaint: EDNeurologicalDeficit Stated Complaint: POSSIBLE STROKE Time Seen by Provider: 09/27/17 11:12 Hx Obtained From: Patient, Family/Hide Measuring Machine Operator Onset/Duration: Gradual Onset - Last night, Still Present, Worse Since - yesterday Timing: Constant Neurological Deficit Location: Facial, RUE, RLE Pain Intensity: 0 Pain Scale Used: 0-10 Numeric Character: Weak, Motor Weakness - right sided, Sensory Loss - Lower and upper extremity, Impaired Speech - slurred, Other: - leg stiffness Associated Signs and Symptoms: Positive: Weakness, Impaired Speech - slurred. Negative: Visual Changes - Additional Pertinent History Primary Care Physician: [id number] - Allergy/Home Medications Allergies/Adverse Reactions: Allergies Allergy/AdvReac Type Severity Reaction Status Date / Time No Known Allergies Allergy Verified 08/23/17 14:51 Home Medications: Home Medications Atorvastatin* [Lipitor*] 20 mg PO DAILY 09/27/17 [History Confirmed 09/27/17] Cephalexin 250 mg PO BID 09/27/17 [History Confirmed 09/27/17] Enoxaparin(*) [Lovenox(*)] 120 mg SUBCUT Q24H 09/27/17 [History Confirmed ] PMH/Surg Hx/FS Hx/Imm Hx Endocrine/Hematology History: Denies: Hx Diabetes Cardiovascular History: Reports: Hx Hypercholesterolemia, Hx Hypertension - ON MEDICATION FOR, Hx Pacemaker/ICD - DR. MCLAUGHLIN FOLLOWS, Other Cardiovascular Problems/Disorders - 03/2017-DVT- BILATERAL LEGS- Denies: Hx Congestive Heart Failure, Hx Peripheral Vascular Disease Respiratory History: Reports: Hx Pulmonary Embolism - 03/2017-BILATERAL LUNGS- WATCHMEN FILTER IN PLACE GI History: Denies: Other GI Disorders - pt. denies History: Reports: Hx Kidney Stones - FLOATING- STATES HAS HAD FOR 10-15 YEARS -DR. DINA RODRIGUEZ Denies: Hx Renal Disease Musculoskeletal History: Reports: Hx Back Problems Denies: Hx Arthritis, Hx Osteoporosis Sensory History: Reports: Hx Contacts or Glasses - GLASSES Denies: Hx Hearing Aid Opthamlomology History: Reports: Hx Contacts or Glasses - GLASSES Neurological History: Reports: Hx Nerve Disease - PARKINSON'S DISEASE, Other Neuro Impairments/Disorders - parkinsons Denies: Hx Seizures, Hx Transient Ischemic Attacks (TIA) - Cancer History Cancer Type, Location and Year: melanoma Hx Chemotherapy: No Hx Radiation Therapy: No - Surgical History Surgery Procedure, Year, and Place: repair of torn tendon L elbow 1980s [facility] [place]. -REPLACED BALL OF RIGHT HIP- [place]. MELANOMA REMOVED FROM BACK- 6-7 YEARS AGO. WATCHMEN FILTER-10/2016. LAST PACEMAKER REPLACED ON 2013 Hx Anesthesia Reactions: No Infectious Disease History: No Infectious Disease History: Denies: Traveled Outside the [place] in Last 30 Days - Family History Known Family History: Positive: Hypertension, Diabetes, Other - No fhx of PE. Negative: Cardiac Disease - Social History Alcohol Use: None Substance Use Type: Reports: None Hx Tobacco Use: No Smoking Status (MU): Never Smoked Tobacco Review of Systems Constitutional: Negative Eyes: Negative ENT: Negative Cardiovascular: Negative Respiratory: Negative Gastrointestinal: Negative Genitourinary: Negative Positive: Other - leg stiffness Neurological: Other - sensory deficit in both upper and lower extremities, slight facial drooping. Negative visual changes. Positive: Weakness, Slurred Speech Psychological: Normal All Other Systems Reviewed And Are Negative: Yes Physical Exam - Summary Physical Exam Summary: General: well-appearing, no pain distress Skin: warm, color reflects adequate perfusion, dry Head: normal Eyes: EOMI, PATRICK ENT: normal Neck: supple, nontender Respiratory: CTA, breath sounds present, Lungs clear Cardiovascular: RRR Abdomen: soft, nontender Bowel: present Musculoskeletal: Edema in the right leg Neurological: Unable to move right arm or leg, Speech slurred Right facial drooping Psychological: affect/mood appropriate Triage Information Reviewed: Yes Vital Signs On Initial Exam: Initial Vitals Temp Pulse Resp BP Pulse Ox 97.7 F 74 20 147/72 98 09/27/17 10:34 09/27/17 10:34 09/27/17 10:34 09/27/17 10:34 09/27/17 10:34 Vital Signs Reviewed: Yes - [place] Coma Scale Best Eye Response: 4 - Spontaneous Best Motor Response: 6 - Obeys Commands Best Verbal Response: 5 - Oriented Coma Scale Total: 15 Diagnostics - Vital Signs Vital Signs Temp Pulse Resp BP Pulse Ox 09/27/17 11:00 78 13 137/73 100 09/27/17 10:50 73 14 100 09/27/17 10:49 147/69 09/27/17 10:34 97.7 F 74 20 147/72 98 - Laboratory Lab Results: Lab Results 09/27/17 09/27/17 09/27/17 Range/Units 12:06 12:06 12:06 WBC 5.0 (3.5-10.8) 10^3/ul RBC 3.18 L (4.0-5.4) 10^6/ul Hgb 9.2 L (14.0-18.0) g/dl Hct 28 L (42-52) % MCV 88 (80-94) fL MCH 29 (27-31) pg MCHC 33 (31-36) g/dl RDW 16 H (10.5-15) % Plt Count 267 (150-450) 10^3/ul MPV 7 L (7.4-10.4) um3 Neut % (Auto) 65.1 (38-83) % Lymph % (Auto) 23.9 L (25-47) % Dawes % (Auto) 7.1 (1-9) % Eos % (Auto) 2.4 (0-6) % Baso % (Auto) 1.5 (0-2) % Absolute Neuts (auto) 3.3 (1.5-7.7) 10^3/ul Absolute Lymphs (auto) 1.2 (1.0-4.8) 10^3/ul Absolute Monos (auto) 0.4 (0-0.8) 10^3/ul Absolute Eos (auto) 0.1 (0-0.6) 10^3/ul Absolute Basos (auto) 0.1 (0-0.2) 10^3/ul Absolute Nucleated RBC 0.01 10^3/ul Nucleated RBC % 0.1 INR (Anticoag Therapy) 1.03 H (0.77-1.02) APTT 36.0 (26.0-36.3) seconds Sodium 137 (133-145) mmol/L Potassium 4.4 (3.5-5.0) mmol/L Chloride 104 (101-111) mmol/L Carbon Dioxide 28 (22-32) mmol/L Anion Gap 5 (2-11) mmol/L BUN 24 (6-24) mg/dL Creatinine 1.26 H (0.67-1.17) mg/dL Est GFR ( Amer) 70.0 (>60) Est GFR (Non-Af Amer) 54.4 (>60) BUN/Creatinine Ratio 19.0 (8-20) Glucose 93 (70-100) mg/dL Lactic Acid (0.5-2.0) mmol/L Calcium 9.1 (8.6-10.3) mg/dL Total Bilirubin 0.70 (0.2-1.0) mg/dL AST 55 H (13-39) U/L ALT 13 (7-52) U/L Alkaline Phosphatase 533 H (34-104) U/L Troponin I 0.01 (<0.04) ng/mL Total Protein 8.2 (6.4-8.9) g/dL Albumin 3.4 (3.2-5.2) g/dL Globulin 4.8 H (2-4) g/dL Albumin/Globulin Ratio 0.7 L (1-3) 09/27/ Range/Units 12:06 WBC (3.5-10.8) 10^3/ul RBC (4.0-5.4) 10^6/ul Hgb (14.0-18.0) g/dl Hct (42-52) % MCV (80-94) fL MCH (27-31) pg MCHC (31-36) g/dl RDW (10.5-15) % Plt Count (150-450) 10^3/ul MPV (7.4-10.4) um3 Neut % (Auto) (38-83) % Lymph % (Auto) (25-47) % Dawes % (Auto) (1-9) % Eos % (Auto) (0-6) % Baso % (Auto) (0-2) % Absolute Neuts (auto) (1.5-7.7) 10^3/ul Absolute Lymphs (auto) (1.0-4.8) 10^3/ul Absolute Monos (auto) (0-0.8) 10^3/ul Absolute Eos (auto) (0-0.6) 10^3/ul Absolute Basos (auto) (0-0.2) 10^3/ul Absolute Nucleated RBC 10^3/ul Nucleated RBC % INR (Anticoag Therapy) (0.77-1.02) APTT (26.0-36.3) seconds Sodium (133-145) mmol/L Potassium (3.5-5.0) mmol/L Chloride (101-111) mmol/L Carbon Dioxide (22-32) mmol/L Anion Gap (2-11) mmol/L BUN (6-24) mg/dL Creatinine (0.67-1.17) mg/dL Est GFR ( Amer) (>60) Est GFR (Non-Af Amer) (>60) BUN/Creatinine Ratio (8-20) Glucose (70-100) mg/dL Lactic Acid 0.6 (0.5-2.0) mmol/L Calcium (8.6-10.3) mg/dL Total Bilirubin (0.2-1.0) mg/dL AST (13-39) U/L ALT (7-52) U/L Alkaline Phosphatase (34-104) U/L Troponin I (<0.04) ng/mL Total Protein (6.4-8.9) g/dL Albumin (3.2-5.2) g/dL Globulin (2-4) g/dL Albumin/Globulin Ratio (1-3) Result Diagrams: 09/27/17 12:06 09/27/17 12:06 Lab Statement: Any lab studies that have been ordered have been reviewed, and results considered in the medical decision making process. - Radiology Chest X-ray Radiology Interpretation Completed By: Radiologist - CXR reveals, per radiologist, NO EVIDENCE FOR ACUTE DISEASE. Ed physician has reviewed this radiology report. - CT Brain CT CT Interpretation Completed By: Radiologist - Brain CT reveals Intraparenchymal hematoma in the left frontal lobe anteriorly and posteriorly. They measure 2.5 cm each. ED physician has reviewed this radiology report. - EKG 1152 ST Segment: Normal EKG Interpretation: An EKG at 1152 shows Atrial paced complexes at 81 bpm; no ectopy NIH Scale - NIH Scale Level of Consciousness: Alert/Keenly Responsive Ask Patient the Month and His/Her Age: Both Correct Ask Pt to Open/Close Eyes and Wheat Washer/Release Non-Paretic Hand: Both Correctly Best Gaze (Only Horizontal Eye Movement): Normal Visual Field Testing: No Visual Loss Facial Paresis-Pt to Smile & Close Eyes or Grimace Symmetry: Partial Paralysis Motor Function - Right Arm: No Movement Motor Function - Left Arm: No Drift-Holds 10 Seconds Motor Function - Right Leg: No Movement Motor Function - Left Leg: No Drift-Holds 10 Seconds Limb Ataxia-Must be out of Proportion to Weakness Present: Absent Sensory (Use Pinprick to Test Arms/Legs/Trunk/Face): Pinprick Less on Affected Best Language (Describe Picture, Name Items): No Aphasia Dysarthria (Read Several Words): Slurs Some Words Extinction and Inattention: No Abnormality Total Score: 12 Course/Dx - Course Course Of Treatment: DISCUSSED WITH DR MCDERMOTT, NEUROSURGERY, DR LALA, PMD, DR LOWE, NEUROLOGY, AND DR HARRIS, HOSPITALIST. ADMIT HOSPITALIST. - Diagnoses Provider Diagnoses: Hemorrhagic stroke - Critical Care Time Critical Care Time: 30-74 min Discharge - Discharge Plan Condition: Stable Disposition: ADMITTED TO [facility] documentation as recorded by the Mauricio concepcion Abhishek accurately reflects the service I personally performed and the decisions made by me, Yanick Turner MD.
[2017-09-27] MEDS ORDERED: PANTOPRAZOLE 20 MG PO SCH (21:00)
[2017-09-27] MEDS: Cephalexin CAP* 250 MG PO SCH (21:10)
[2017-09-27] MEDS: Omeprazole CAP* 20 MG PO SCH (21:10)
[2017-09-27] MEDS: Carbidopa/Levodop 25/100 MG TAB(*) PO SCH (21:10)
[2017-09-27 21:37] LABS: Urine Appearance Clear; Urine Blood 1+ (Negative); Urine Color Yellow; Urine Ketones Negative (Negative); Urine Protein Negative (Negative); Urine Specific Gravity 1.035 (1.010-1.030); Urine Urobilinogen Positive (Negative)
--- NOTE | 2017-09-27 23:48 | HP ---
CC: Dr. Caitlyn Mitchell; Dr. Antoine * HOSPITAL MEDICINE HISTORY AND PHYSICAL: DATE OF ADMISSION: 09/27/17 PRIMARY CARE PHYSICIAN: Dr. Caitlyn Mitchell. ONCOLOGIST: Dr. Antoine. ATTENDING PHYSICIAN: Dr. Bala Mendez * (dictation provided by Scarlett Strickland NP). CHIEF COMPLAINT: Right-sided weakness. HISTORY OF PRESENT ILLNESS: Mr. 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 Mr. Gastelum reports that he was in [place] back in January 2017 when he fell and broke his right hip. At that time, he had a partial replacement and went on to rehabilitation. He came to [place] in March 2017 to be with family and was noted to have significant lower extremity swelling. At that time, he was found to have bilateral DVTs, pulmonary emboli, and Klebsiella bacteremia. He recovered from that slowly and did rehabilitation in [facility]. Since his return home from [facility], he had been doing well and progressing with therapy; however, on 09/23/17, it was noted that he had significant right lower extremity swelling and redness. He had a venous Doppler study, which showed a new right lower extremity DVT and it was also felt that he had a cellulitis. He was switched from his warfarin over to Lovenox at that point per Dr. Mitchell. He is currently on Keflex for cellulitis with good improvement and resolution of redness and swelling. Yesterday, Mr. Gastelum's family noticed that he was weaker in general. Mr. Gastelum felt that by the end of the day he was having more significant specifically right-sided weakness. This morning when he awoke , he essentially could not move the right side at all. It was also felt that he was having some difficulty speaking and enunciating and that his voice was very quiet and low. He therefore presented to the emergency room. In terms of his melanoma, he was reportedly diagnoses with left flank melanoma approximately 10 years ago. At that time he had a resection of the tumor and has continued under the care of Dr. Antoine. He now has further tumor in the left flank and is on what is described as an injectable viral therapy. He had a PET scan on 09/08/17 that found hypermetabolic activity at this site only. In the emergency room, Mr. Gastelum had a CT of his brain, which showed 2 areas of questionable hemorrhagic infarcts that were 2.5 cm each to the left frontal lobe anteriorly and posteriorly. He was given protamine for reversal of the Lovenox. He was seen in consultation by Dr. Jacob. Dr. Jacob remains concerned perhaps that these hemorrhagic areas are secondary to metastatic tumor and a CT with contrast of the brain is pending. MRI cannot be performed as the patient has a pacemaker. Family feels that his speech has improved since arrival, but his right-sided hemiparesis is unchanged. PAST MEDICAL HISTORY: 1. Right lower extremity DVT while on warfarin, now on Lovenox. 2. Right lower extremity cellulitis. 3. Melanoma of the left flank, currently undergoing treatment with Dr. Antoine. 4. History of DVT and PE, March 2017. 5. History of Klebsiella bacteremia, 2016. 6. Status post hip arthroplasty for right hip fracture, January 2017. 7. Punctate right renal stone. 8. Colonic diverticulosis. 9. Umbilical hernia containing fat. 10. 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 11. Parkinson's disease. 12. Axonal neuropathy. 13. Hyperglobulinemia. 14. MGUS. 15. History of paroxysmal atrial fibrillation. 16. Pacemaker for sick sinus syndrome. 17. Status post insertion of a watchman device. 18. Mild global hypokinesis on echocardiogram. 19. Patent foramen ovale and atrial septal aneurysm on echo. 20. Moderate aortic insufficiency and mitral regurgitation. 21. Left atrial enlargement. 22. History of gout. 23. Benign prostatic hypertrophy 24. Anemia of chronic disease. 25. History of hypertension. 26. Robyn's thyroiditis with positive antithyroid antibodies. 27. Aortic sclerosis. 28. History of GI bleed in January 2017. 29. History of staph aureus bacteremia in 2013. MEDICATIONS: 1. Lovenox 120 mg daily at 2 p.m. 2. Atorvastatin 20 mg p.o. daily. 3. Keflex 250 mg p.o. b.i.d. 4. Metoprolol succinate 50 mg p.o. q.p.m. 5. Carbidopa/levodopa 25/100 two tabs at 8 o'clock and 11 o'clock 1400, 1700, and 2000 hours. 6. Multivitamin tab daily. 7. Pantoprazole 20 mg p.o. b.i.d. ALLERGIES: No known drug allergies FAMILY HISTORY: I believe that Meredith Riley would be his healthcare proxy. REVIEW OF SYSTEMS: A 14-point review of systems was completed with Mr. Gastelum all those not mentioned above were negative. PHYSICAL EXAMINATION GENERAL: Mr. Gastelum is lying in bed. He is in no acute distress. LUNGS: Clear to auscultation bilaterally. No accessory muscle use. Good aeration. HEART: S1, S2. No murmur, rub, or gallop, and regular. ABDOMEN: Soft, nontender, with bowel sounds positive x4. EXTREMITIES: No cyanosis. No edema. NEURO: He is alert, he is oriented x3. He has a soft, but clear speech. He seems to be having word finding difficulty but is reluctant to speak much with me. His pupils are equal and reactive, his extraocular movements are intact. He has no movement to right upper or lower extremity and has right facial weakness. He has +5 strength to left upper and lower extremity. Sensation is intact bilaterally though diminished on the right lower extremity. Babinski positive bilaterally. SKIN: Intact. DIAGNOSTIC STUDIES/LAB DATA: WBC 5.0, hemoglobin 9.2, hematocrit 28, platelet count 267. INR 1.03, sodium 137, potassium 4.4, chloride 104, serum bicarbonate 28, BUN 24, creatinine 1.26, glucose 93, alk phos 533, this is consistent with previous. AST 55, ALT 13. CT brain as follows: "Intraparenchymal hematoma in the left frontal lobe anteriorly and posteriorly, they measured 2.5 cm each." EKG shows a paced rhythm with a heart rate of 80. Chest x-ray shows no evidence for acute disease. ASSESSMENT: Mr. 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 He has been found to have 2 hemorrhagic infarcts with concern for possible underlying metastatic tumors. Our plans are for inpatient admission as I expect his length of stay to be greater than 2 days for the followin. Right-sided hemiparesis: The patient does show hemorrhage on CT of the brain. I appreciate the consultation from Dr. Jacob. Patient's Lovenox has been held and he has been given protamine sulfate. Plan for neurological checks q.2 hours x2 and then q.4 hours. Plan for a CT with contrast to rule out possible metastases. Patient is not a candidate for MRI at this point due to the presence of a pacemaker. If metastases are found, Dr. Jacob is considering steroid treatment but requests that this be reviewed with oncology ( who has been consulted). Physical therapy, occupational therapy and speech therapy have been ordered. 2. Parkinson's disease. Continue carbidopa/levodopa. 3. History of hyperlipidemia. Continue atorvastatin. 4. History of recent right lower extremity cellulitis. Continue Keflex. Infection seems to be resolving well. 5. History of hypertension. Continue metoprolol. 6. History of gastroesophageal reflux disease. Continue pantoprazole. 7. History of melanoma. Plan to consult Oncology, Dr. Rivera is aware and someone will be seeing patient tomorrow. 8. DVT prophylaxis. SCDs are contraindicated in patient with new DVT. Patient is not a candidate for anticoagulation given new hemorrhagic infarcts. Plan to review possibility of any prophylaxis with hematology/oncology. 9. Code status is DNR. TIME SPENT: Approximately 75 minutes were spent on admission of this patient, more than half of the time was spent with the patient at the bedside reviewing the events leading up to this hospitalization, performing the physical examination, and reviewing my plan of care. SCARLETT STRICKLAND NP [id number]/[facility] #: [id number] MARLEE
--- NOTE | 2017-09-28 01:13 | CONS ---
CONSULTATION REPORT: DATE OF CONSULT: 09/27/17 HISTORY OF PRESENT ILLNESS: The patient is a very pleasant 87-year-old right hand gentleman with history of prostate cancer, has recently been diagnosed with right lower extremity DVT and was placed on Lovenox. The patient was transferred to emergency room because of progressive weakness of the right upper and lower extremity over the last three days to the point that he had no strength at all. The patient has also history of Parkinson's disease and melanoma. Requested to see the patient by emergency room physician regarding CT scan findings consistent with multiple hemorrhagic lesions. The patient denies any seizures. Denies any nausea or vomiting. Denies headache. He admits weakness on the right side of his body with decreased sensation of the right lower extremity and denies urinary or GI incontinence. The patient is retired, lives with his daughter and his girlfriend. He is a . PAST MEDICAL HISTORY: The patient has history of prostate cancer, Parkinson's, heart disease, right lower extremity DVT. PAST SURGICAL HISTORY: Melanoma resection, pacemaker. ALLERGIES: No known drug allergies. MEDICATIONS: The patient is on: 1. Atorvastatin. 2. Cephalexin. 3. Lovenox at home. SOCIAL HISTORY: Tobacco negative. Alcohol negative. Recreational drug use negative. The patient is retired. He used to work in [employer] for well over 35 years. He is a and lives with his girlfriend and his daughter. He has 3 children. PHYSICAL EXAMINATION: The patient is not in acute distress. He is awake, alert and oriented x2 to 3. Pupils are equal and reactive. Cranial nerves II through XII are grossly intact with the exception of right facial weakness. Motor 5/5 on the left side, 0/5 on the right side. Sensory is grossly intact to light touch except decreased sensation in the right lower extremity below his right knee. Although, the patient's cooperation is relatively poor. Deep tendon reflexes are +1 on the left side, +2 on the right side. Babinski positive bilaterally. Clonus right positive. DIAGNOSTIC STUDIES: The patient had a CT scan of his brain reveals multiple hemorrhagic lesions on the right frontal and the right posterior frontal lobe. The patient had repeat CT scan with contrast revealing several hemorrhagic lesions with surrounding edema and fluid level at the right posterior frontal region. ASSESSMENT: The patient is a very pleasant 87-year-old right hand gentleman with history of Parkinson's disease, heart disease, pacemaker, melanoma, lower extremity DVT on Lovenox, who presented with right hemiplegia and CT scan findings consistent with multiple hemorrhagic lesions. PLAN: The patient at this point is quite comfortable, discussed with him the extent findings of imaging and surgical options including surgical intervention versus conservative treatment with steroids and radiation. The patient given his age and his comorbidities would like to continue with conservative treatments and would not like to have surgery. The patient is DNR. Discussed in extent with his daughter Mrs. Riley over the phone as well as his girlfriend who also would like to continue with conservative treatment and would not like to consider surgical intervention even in the event that his hemorrhagic lesions expand and hemorrhage may be a life threatening condition. At this point, we will be happy to comply with the patient's and family's wishes. The patient is receiving reversal of anticoagulation per medical team. We would recommend steroids and consideration for radiation. Thank you for allowing us to participate in the care of this patient. We will be available if needed. Please do not hesitate to contact our office in case you have any further questions or concerns regarding the care of this patient. [id number]/[facility] #: [id number] MARLEE
[2017-09-28] MEDS: Atorvastatin* 20 MG TAB PO SCH (07:57)
[2017-09-28] MEDS: Carbidopa/Levodop 25/100 MG TAB(*) PO SCH ×5 (07:57→20:24)
[2017-09-28] MEDS: Cephalexin CAP* 250 MG PO SCH ×2 (07:57→20:24)
[2017-09-28] MEDS: Omeprazole CAP* 20 MG PO SCH ×2 (07:57→20:24)
[2017-09-28] MEDS ORDERED: Dexamethasone IV* 8 MG in NS 0.9% 50 ML* 50 ML IVPB SCH (11:00)
--- NOTE | 2017-09-28 11:15 | PN ---
Progress Note - Progress Note Date of Service: 09/28/17 SOAP: Subjective: right side of body still flacid. tearful but comfortable this am. Objective: Vital Signs Temp Pulse Resp BP Pulse Ox 97.6 F 70 14 150/68 99 09/28/17 07:36 09/28/17 07:36 09/28/17 08:00 09/28/17 07:36 09/28/17 07:36 lying in bed in NAD unable to move right side clear right sided neglect A+O x 3 Atorvastatin Calcium (Lipitor*) 20 mg PO DAILY [facility] Last Admin: 09/28/17 07:57 Dose: 20 mg Carbidopa/Levodopa (Sinemet 25/100 Tab(*)) 2 tab PO 0800,1100,1400,1700 [facility] Last Admin: 09/28/17 07:57 Dose: 2 tab Carbidopa/Levodopa (Sinemet 25/100 Tab(*)) 2 tab PO 2000 [facility] Last Admin: 09/27/17 21:10 Dose: 2 tab Cephalexin HCl (Keflex Cap*) 250 mg PO BID [facility] Last Admin: 09/28/17 07:57 Dose: 250 mg Dexamethasone Sodium Phosphate (Decadron Iv*) 8 mg IV SLOW PU Q6H [facility] Metoprolol Succinate (Toprol Xl Tab*) 50 mg PO QPM [facility] Last Admin: 09/27/17 17:56 Dose: 50 mg Omeprazole (Prilosec Cap*) 20 mg PO BID [facility] Last Admin: 09/28/17 07:57 Dose: [address] brain: personal read: multiple left sided enhancing lesions with significant edema Assessment: 87 yo M w 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 Dr. Mitchell and I discussed this [facility] and his family at length. I have personally reviewed his imaging and discussed with Dr Escobar. At this point I do not think he is a candidate for further palliative therapy and hospice care is most appropriate. There is likely little to no added benefit to WBRT, and would require coming back and forth x 10 sessions without improved QOL. Given this I have recommended steroids and hospice care alone. The family is completely on board with this. They would like to try home hospice at first, and Dr. Mitchell has agreed to follow him on hospice. He can be discharged on dexamethasone 8 mg po bid.
[2017-09-28] MEDS: Dexamethasone IV* 4 MG/ML 1 ML (4 MG) IV SLOW PU SCH ×3 (11:21→22:50)
--- NOTE | 2017-09-28 11:33 | CONS ---
CONSULTATION REPORT: DATE OF CONSULT: 09/27/17 PATIENT OF: Scarlett Strickland NP; Caitlyn Mitchell MD, and Dr. Antoine HISTORY OF PRESENT ILLNESS: This is an 87-year-old man with metastatic melanoma undergoing chemotherapy injections through Dr. Antoine as well as a history of DVT with PEs. He is on warfarin and now most recently Lovenox therapy. He has AFib with the pacemaker for sick sinus syndrome and he presented yesterday. Please note that I saw him upon admission; I saw him on . He had some significant right lower leg swelling with redness on which had a new right lower extremity DVT as well as possible cellulitis and he was switched to Lovenox. It was noted yesterday that he was weak in general and then he developed right-sided weakness. The morning of admission when he woke, he essentially could not move his right side with some intermittent speaking difficulties which were worse in the morning than in the afternoon. He had a recent PET scan on 09/08/17 that was hypermetabolic only at the site of his recurrence of tumor. 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 PAST MEDICAL HISTORY: Significant for right lower extremity DVT, now on Lovenox ; right lower extremity cellulitis; melanoma of left flank; history of PE in March 2017; history of klebsiella bacteremia in 2016; right hip arthroplasty for right hip fracture in January 2017; right renal stone; colonic diverticulosis; degenerative disk disease and osteoarthritis of cervical, thoracic, and lumbar spine; Parkinson's disease; axonal neuropathy; hyperglobulinemia; history of paroxysmal atrial fibrillation; pacemaker for sick sinus syndrome. He is status post insertion of Watchman device, global hypokinesia on echocardiogram, patent foramen ovale, left atrial enlargement, history of gout, BPH, anemia of chronic disease, history of hypertension, Robyn's thyroiditis, aortic sclerosis, history of GI bleed in January 2017, history of Staph aureus in 2013. MEDICINES ON ADMISSION: Include: 1. Lovenox 120 mg daily at 2 p.m. 2. Atorvastatin 20 mg p.o. daily. 3. Keflex 250 mg b.i.d. 4. Metoprolol 50 daily. 5. Sinemet 25/100 two tabs 5 times a day. 6. Pantoprazole 20 mg b.i.d. ALLERGIES: He has no known drug allergies. REVIEW OF SYSTEMS: Negative in all 14 spheres other than the HPI. PHYSICAL EXAM: Vital Signs: Yesterday was 97.7, pulse 73, blood pressure 146/ 85. He was alert and oriented. He had some word finding difficulties. Cranial nerves II through XII were abnormal for right facial weakness. He had some decreased right visual field cut, strength was 0/5 in his right lower leg, 1/5 in his right. He had equivocal toe on the left, upgoing on the right with sensation decreased to light touch in his right lower extremity. Fundi showed sharp discs. DIAGNOSTIC STUDIES/LAB DATA: I was concerned on his initial CT scan that this was not stroke by appearance, but the 2 significant hemorrhages were surrounded by areas of edema. Therefore, in terms of further evaluation could not get an MRI scan. We got a CT scan with contrast to see if there were lesions that had bled into versus hemorrhagic stroke. The CT scan with contrast showed what looks like at least 2 circular lesions in the left frontal, right posteroparietal, and possibly one another smaller less defined area on the left side; left frontal, left parietal, and posterior left temporal area, there is significant edema as well. Labs included white count of 5, hematocrit of 28, platelet count of 367. INR of 1.03, PTT of 36. Normal BMP, other than a creatinine of 1.26. AST of 55, alk phos of 533, globulin of 4.8. His urine specific gravity was 1.035. IMPRESSION: I discussed with Scarlettkavon Strickland after the CT scan came back last evening that this was not a stroke that we could conceivably treat with steroids , which will make some of his symptoms somewhat improved, but this is not be a curative procedure and Oncology was going to be seeing him the next day, that is on the and we could coordinate with them at that point in terms of the issue of steroids. He is on Keppra. This is for his seizures. The other issue that is conceivable is that these could be abscesses rather than a mass; I think this is much less likely, but it is possible. I would sent at least blood cultures and get an echo to look for vegetations given his overall clinical course. I will defer whether more aggressive work and treatment is necessary per his primary care physician and his oncologist. Thank you for sharing her case. [id number]/[facility] #: [id number] MARLEE
[2017-09-28] MEDS: Metoprolol Succinate XL TAB* 25 MG PO SCH (17:07)
[2017-09-29] MEDS: Dexamethasone IV* 4 MG/ML 1 ML (4 MG) IV SLOW PU SCH ×3 (05:59→17:46)
[2017-09-29] MEDS: Cephalexin CAP* 250 MG PO SCH (08:24)
[2017-09-29] MEDS: Carbidopa/Levodop 25/100 MG TAB(*) PO SCH ×4 (08:24→17:46)
[2017-09-29] MEDS: Atorvastatin* 20 MG TAB PO SCH (08:24)
[2017-09-29] MEDS: Omeprazole CAP* 20 MG PO SCH (08:24)
[2017-09-29] MEDS: Metoprolol Succinate XL TAB* 25 MG PO SCH (17:46)
[2017-09-30] MEDS: Omeprazole CAP* 20 MG PO SCH ×3 (00:46→22:37)
[2017-09-30] MEDS: Carbidopa/Levodop 25/100 MG TAB(*) PO SCH ×6 (00:46→19:36)
[2017-09-30] MEDS: Cephalexin CAP* 250 MG PO SCH ×2 (00:47→09:14)
[2017-09-30] MEDS: Dexamethasone IV* 4 MG/ML 1 ML (4 MG) IV SLOW PU SCH ×5 (00:49→22:34)
[2017-09-30] MEDS: Atorvastatin* 20 MG TAB PO SCH (09:14)
--- NOTE | 2017-09-30 11:39 | PN ---
Progress Note - Progress Note Date of Service: 09/30/17 Note: Brief Palliative care note: Spoke with Dr. Mitchell regarding disposition plans. Patient and family [facility] Plan is to do teaching with RN and obtain supplies necessary to get him home prior to enrollment. Principal dx: metastatic melanoma with brain mets, with right sided paralysis not a candidate for treatment. Patients children and significant other will be present at 2 pm in hopes of teaching and discharge home today. Patient denies any complaints at this time.
[2017-09-30] MEDS: Metoprolol Succinate XL TAB* 25 MG PO SCH (17:16)
[2017-10-01] MEDS: Dexamethasone IV* 4 MG/ML 1 ML (4 MG) IV SLOW PU SCH ×2 (05:32→10:34)
[2017-10-01] MEDS: Carbidopa/Levodop 25/100 MG TAB(*) PO SCH ×3 (07:37→14:45)
[2017-10-01 08:53] VITALS: BP 118/71
[2017-10-01] MEDS: Omeprazole CAP* 20 MG PO SCH (09:43)
[2017-10-01] MEDS: Atorvastatin* 20 MG TAB PO SCH (09:43)
[2017-10-01] MEDS ORDERED: Dexamethasone IV* 4 MG/ML 1 ML (4 MG) IV SLOW PU ONE (16:00)
[2017-10-02] MEDS ORDERED: Dexamethasone IV* 4 MG/ML 1 ML (4 MG) IV SLOW PU SCH
--- NOTE | 2017-10-03 19:55 | DS ---
CC: Dr. Antoine; [facility] * DISCHARGE SUMMARY: DATE OF ADMISSION: 09/27/17 DATE OF DISCHARGE: 10/01/17 DISCHARGE DIAGNOSES: 1. Malignant melanoma, metastatic to brain. 2. Bleeding into brain metastases. 3. History of deep venous thrombosis and pulmonary emboli, previously on warfarin, then on Lovenox with discontinuation of anticoagulation because of brain hemorrhage. 4. History of recent right lower extremity cellulitis. 5. History of Klebsiella bacteremia, 2016. 6. Status post right hip fracture, status post hip arthroplasty, January 2017. 7. History of nephrolithiasis. 8. Colonic diverticulosis. 9. Umbilical hernia containing fat. 10. Spinal spondylosis. 11. Parkinson disease. 12. MGUS. 13. History of paroxysmal atrial fibrillation. 14. Pacemaker for sick sinus syndrome. 15. Status post insertion of a Watchman device. 16. Patent foramen ovale and atrial septal aneurysm on echo. 17. Moderate aortic insufficiency and mitral regurgitation. 18. History of hypertension. 19. Robyn's thyroiditis with positive antithyroid antibodies. 20. History of GI bleed, 2016. 21. History of Staph aureus bacteremia in 2013. 22. Anemia. HISTORY: Robert Gastelum is an 87-year-old man admitted with right-sided hemiparesis. Please see the dictated admission note for details of the present illness, past medical history, family history, social and personal history, review of systems, and physical examination. LABORATORY DATA: CBC on admission; WBC 5, H and H 9.2/28, MCV 88, PLT 267,000. INR 1.03, PTT 36. Chemistry; sodium 137, potassium 4.4, chloride 104, CO2 of 28 , BUN and creatinine 24/1.26. Rest of the comprehensive metabolic panel was abnormal for an AST of 5, alk phos of 533, globulin 4.8. Urinalysis, yellow clear. Specific gravity 1.035, pH 5. Dipstick is positive for blood 1+. Urobilinogen positive, rbc's 1+. IMAGING: Brain CT on 09/27/17, showed intraparenchymal hematoma in the left frontal lobe anteriorly and posteriorly measuring 2.5 cm each. Chest x-ray on 09/27/17, showed no evidence for acute disease. Brain CT on 09/27/17 showed multiple hyperdense lesions, some showing contrast enhancement suspicious for hemorrhagic metastasis. This was done with contrast. There were 2 hyperdense lesions present in the left frontal and parietal lobes which are seen on the prior noncontrast study. The lesion on the frontal lobe appears slightly larger. In addition, there were 2 smaller lesions, one in the posterior left parietal lobe which is better visualized on the current studies measuring 0.9 cm in size and a second in the posterior left temporal lobe measuring 1 cm in size, not well seen on the prior study. There was a significant amount of surrounding edema causing localized mass effect with effacement of adjacent sulci. No midline shift was noted. EKG on 09/27/17 showed atrial paced complexes. Other complexes also detected. Left anterior fascicular block, late transition anteriorly. HOSPITAL COURSE: The patient was initially admitted and felt to have hemorrhage on CT of the brain. His Lovenox was held and he was given protamine sulfate. He was seen in consultation by Dr. Jacob from Neurology. He could not have an MRI because of his pacemaker. Dr. Jacob considered the possibilities of metastatic melanoma metastatic to the brain versus brain abscess. He was seen in consultation by Dr. Hyatt of Neurosurgery. He felt that he was not a surgical candidate given his age and comorbidities. He wanted conservative treatment, did not want surgery. He was DNR. This was discussed with his daughter and his girlfriend. He was seen in consultation by Oncology, Dr. Griffin, who recommended starting him on steroids. She discussed possible radiation with Dr. Escobar, did not feel that this would give him any benefit. Malignant melanoma is not radiosensitive. Dr. Jacob had recommended the CT with contrast. He did not have any improvement in his strength on the right side with steroids. He did become somewhat more alert with them. He was seen in consultation by Dr. Quinteros of Palliative Care. He agreed on hospice. He could not be enrolled right away because of the holiday weekend. It was decided that he could go home with equipment and a comfort pack. He was quite sad about his diagnosis, but accepting of this and the family was very supportive and wanted to bring him home. At the time of discharge, he is being discharged on a regular diet. Activity as tolerated. It was felt that he spent most of his time in bed. MEDICATIONS: 1. He used to be on carbidopa/levodopa 25/100, 9 pills per day, 2 in the morning, 2 mid day, 2 in the afternoon, 2 in the evening and 1 at bedtime. 2. He used to be on pantoprazole 20 mg twice a day. 3. Docusate 100 mg once a day. 4. Metoprolol XL 50 mg once a day. 5. Dexamethasone 8 mg twice a day. 6. Roxanol (morphine sulfate) concentrate 5 to 20 mg every 4 hours as needed for pain. 7. Lorazepam 0.5 mg 1 every 4 hours as needed for anxiety. He is to be seen as needed. I will be following him with [facility], [place]. [id number]/[facility] #: [id number] [facility]
== END 2017-10-01 17:05 | disposition hospice, home (50) | DRG 54 ==
LOC: ED 10:21 → MEDTELE 13:06
PROVIDERS: ADMIT Internal Medicine; ATTEND Internal Medicine Geriatric Medicine
DX: C79.31 Secondary malignant neoplasm of brain (principal); G93.6 Cerebral edema; I61.1 Nontraumatic intracerebral hemorrhage in hemisphere, cortical; I82.401 Acute embolism and thrombosis of unspecified deep veins of right lower extremity; C79.82 Secondary malignant neoplasm of genital organs; G20 Parkinson's disease; I48.0 Paroxysmal atrial fibrillation; G62.9 Polyneuropathy, unspecified; G81.91 Hemiplegia, unspecified affecting right dominant side; I25.3 Aneurysm of heart; Q21.1 Atrial septal defect; C43.59 Malignant melanoma of other part of trunk; R47.81 Slurred speech; I10 Essential (primary) hypertension; E78.5 Hyperlipidemia, unspecified; R40.2362 Coma scale, best motor response, obeys commands, at arrival to emergency department; R40.2142 Coma scale, eyes open, spontaneous, at arrival to emergency department; R40.2252 Coma scale, best verbal response, oriented, at arrival to emergency department; R29.712 NIHSS score 12; K57.30 Diverticulosis of large intestine without perforation or abscess without bleeding; Z96.641 Presence of right artificial hip joint; M47.9 Spondylosis, unspecified; I08.0 Rheumatic disorders of both mitral and aortic valves; E06.3 Autoimmune thyroiditis; M10.9 Gout, unspecified; N40.0 Benign prostatic hyperplasia without lower urinary tract symptoms; R47.02 Dysphasia; K21.9 Gastro-esophageal reflux disease without esophagitis; Z66 Do not resuscitate; M50.30 Other cervical disc degeneration, unspecified cervical region; M51.36 Other intervertebral disc degeneration, lumbar region; M51.34 Other intervertebral disc degeneration, thoracic region; I44.4 Left anterior fascicular block; Z86.711 Personal history of pulmonary embolism; Z87.442 Personal history of urinary calculi; Z95.0 Presence of cardiac pacemaker; Z82.49 Family history of ischemic heart disease and other diseases of the circulatory system; Z83.3 Family history of diabetes mellitus
CPT/HCPCS: 36415; 70450; 70460; 71010; 80053; 81003; 81015; 83605; 84484; 85025; 85610; 85730; 93005; 97530; 99233; A9270-GY; J1100; J2720; Q9967